=== PATIENT | male | born 1970 | race Caucasian/White ===

== ENCOUNTER 2019-10-30 14:13 | Day surgery (SDC) | payer OTHER, SELFPAY ==
--- NOTE | 2019-10-30 | PATH_ITS ---
[facility] Accession Number: [id number] . 01 Material submitted: . PART A: sigmoid colon - SIGMOID POLYP 4 MM PART B: sigmoid colon - ABNORMAL MUCOSA - SIGMOID AT 34 CM PART C: colon - ABNORMAL MUCOSA AT 27 CM PART D: colon - ABNORMAL MUCOSA 25 CM . 01 Clinical history: . SCREENING COLONOSCOPY . 02 Diagnosis: A. Sigmoid Colon Polyp 4 mm, Biopsy: Inflammatory polyp with features of mucosal prolapse. Additional levels were examined. Negative for dysplasia and malignancy. . B. Sigmoid at 34 cm, Abnormal Mucosa, Biopsy: Hyperplastic colonic mucosa with extravasated red blood cells in the lamina propria and hemosiderin-laden macrophages suggestive of prior prior injury. Negative for active, chronic, and microscopic colitis. Negative for dysplasia and malignancy. . C. Colon, Abnormal Mucosa at 27 cm, Biopsy: Hyperplastic colonic mucosa with extravasated red blood cells and hemosiderin-laden macrophages suggestive of prior injury. Negative for active, chronic and microscopic colitis. Negative for dysplasia and malignancy. . D. Abnormal Mucosa at 25 cm, Biopsy: Hyperplastic colonic mucosa. Negative for dysplasia and malignancy. Additional levels were examined. [facility] 11/04/2019 1504 Local . 02 Electronically signed: . Lor Flores MD, Pathologist NPI- [id number] . 01 Gross description: . Part A: SIGMOID POLYP 4 MM: Received in formalin are 2 fragment(s) of aguilar, soft tissue measuring 0.1 x 0.1 x 0.1 cm to 0.2 x 0.2 x 0.1 cm submitted entirely in 1 cassette(s) Part B: ABNORMAL MUCOSA - SIGMOID AT 34 CM: Received in formalin are multiple fragment(s) of aguilar, soft tissue measuring 0.1 x 0.1 x 0.1 cm to 0.3 x 0.2 x 0.2 cm submitted entirely in 1 cassette(s) Part C: ABNORMAL MUCOSA AT 27 CM: Received in formalin is 1 fragment(s) of aguilar, soft tissue measuring 0.2 x 0.1 x 0.1 cm submitted entirely in 1 cassette(s) Part D: ABNORMAL MUCOSA 25 CM: Received in formalin is 1 fragment(s) of aguilar, soft tissue measuring 0.3 x 0.2 x 0.2 cm submitted entirely in 1 cassette(s) /[facility] [place] 11/02/2019 1924 Local . 02 Pathologist provided ICD-10: Z12.11 . 02 CPT . 565965, 293531, 183833, [id number] Performed at: 01 [facility] [address] [id number] MD Miguel Angel Hess MD Phone: [phone] Performed at: 02 [facility] [address] [place], [place] [id number] MD Lor Flores MD Phone: [phone]
--- NOTE | 2019-10-30 12:22 | P.HP_ITS ---
History of Present Illness History of Present Illness Date Patient Seen: 10/30/19 Time Patient Seen: 15:00 Chief complaint: 28051 SCREENING COLONOSCOPY Narrative: Primary Care Provider: Nathaly STAFFORD History of Present Illness: 49 Years Old Male comes in today for consideration of a screening colonoscopy. There have been no lower GI symptoms suggesting disease such as change in bowel habits, bleeding, abdominal pain or anemia. There's been no family history of colon cancer or colon polyps. Overall health issues have been stable, including no major cardiac events for at least 6 weeks. 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 use as directed 2) Claritin 10 Mg Oral Tablet (Loratadine) .... Take one tablet daily, as needed for allergy symptoms. 3) Allergy [place] 24 Hour 50 Mcg/act Nasal Suspension (Fluticasone Propionate) .... use as directed per instructions Allergies (verified): No Known Drug Allergies Review of Systems: General: Denies fever, chills, sweats, loss of appetite, fatigue, weakness, ill feeling, weight change, waking-up tired, fatigued/sleepy during day, snoring, and problem getting to or staying asleep. Eyes: Denies blurring, double vision, irritation/itching, redness, discharge, vision loss, eye pain, and light intolerance. ENT: Denies earache, ear discharge, ringing ears, decreased hearing, nasal congestion, nasal discharge, postnasal drip, nosebleeds, sore throat, hoarseness, itching nose/eyes, and sneezing. CV: Denies chest discomfort, palpitations, lightheadedness, passing out, SOB with exertion, SOB lying flat, PND-sudden nocturnal shortness of breath, and ankle edema. Resp: Denies cough, wheeze, SOB at rest, sputum, coughing up blood, and painful breathing. GI: Denies nausea, vomiting, diarrhea, constipation, change in bowel habits, abdominal pain, dark black stools, blood in stools, gas/bloating, indigestion/heartburn, reflux, loss of appetite, swallowing problems, painful swallowing, and jaundice. : Denies painful urination, blood in urine, frequency, nocturia, urgency, hesitancy, incontinence, decreased stream, penis discharge, genital sores, less interested in sex, and erectile dysfunction. MS: Denies neck pain, upper back pain, lower back pain, joint pain, joint swelling, joint stiffness, muscle cramps, muscle weakness, pain radiating down leg, restless legs, and leg pain with exertion. Derm: Denies rash, itching, dryness, skin lesions, changing lesions, and non- healing sores. Neuro: Denies weakness of a limb, numbness/tingling, seizure, tremor, dizziness, transient blindness, balance problems, frequent falls, frequent headaches, severe headaches, difficulty speaking, difficulty swallowing, clumsiness, confusion, and memory loss. Psych: Denies sadness/hopelessness, feeling overwhelmed, lack of freda/pleasure, anxiety/excessive worry, excessive sleep, inadequate sleep, change in appetite, poor concentration, suicidal ideation, hallucinations, paranoia, and phobia. Endo: Denies cold intolerance, heat intolerance, excessive thirst, excessive hunger, excessive urination, and unintentional weight change. Heme: Denies abnormal bruising, bleeding problems, bleeding gums, frequent nosebleeds, and enlarged lymph nodes. Allergy: Complains of seasonal allergies and food intolerance; denies hives, allergic rash, allergy symptoms, animal intolerance, and frequent infections. Meds Home Medications and Allergies Home Medications Medication Instructions Recorded Confirmed Type No Known Home Medications 10/30/19 10/30/19 History Allergies Allergy/AdvReac Type Severity Reaction Status Date / Time No Known Drug Allergies Allergy Verified 10/30/19 14:30 Exam Narrative Exam Narrative: GENERAL: Alert and oriented, appearing stated age and in no acute distress. HEENT: Head normocephalic/atraumatic. LUNGS: Clear to ausculation bilaterally, no wheezes, rhonchi or rales. CV: Normal S1 and S2 with regular rate and rhythm, no audible murmurs, rubs or gallops. ABDOMEN: Soft, non-tender, non-distended, no organomegaly. Positive bowel sounds. EXTREMITIES: No clubbing, cyanosis, or edema. NEURO: Cranial nerves II through XII grossly intact, no focal deficits. PSYCH: Alert and oriented x 3. SKIN: No concerning lesions. Assessment & Plan Assessment & Plan narrative: 1. Screening for colon cancer Plan for colonoscopy. The nature and character of the procedure as well as anticipated results were discussed. The possibility of not completing the procedure was also discussed. Possible complications including aspiration pne umonia, bleeding, perforation and reaction to medications either for sedation or preparation and missed lesions were discussed. Questions were answered and proceeding to the colonoscopy was elected. Informed consent signed. I sincerely appreciate the referral allowing me to participate in this patient's care. Please contact me with any questions or concerns.
--- NOTE | 2019-10-30 12:24 | PM.OP.ENDO ---
Operative Date/Time/Diagnoses Date of procedure: 10/30/19 Time of procedure: 15:42 Pre-op diagnosis: 1. Screening for colon cancer Post-op diagnosis: other (1. Sigmoid polyp x1, 4 mm, removed with cold biopsy forceps, 2. Abnormal mucosa with superficial hyperemesis, sigmoid colon, targeted biopsies taken, 25-37 cm) Procedure & Clinicians Study performed: 1. Colonoscopy Same procedure as scheduled: Yes Indications: 1. Screening for colon cancer Surgeon: Maame Haney Procedure Notes SCOAP/Timeout: 15:42 Procedure in detail: ENDOSCOPIST: Maame Haney MD Sedation RN: Dana Mark RN Sedation start time: 15:47 Sedation end time: 16:42 PROCEDURE: Colonoscopy with methylene blue and cold snare polypectomy as well as targeted biopsies throughout. INDICATIONS: 1. Screening for colon cancer MEDICATION: Levsin 0.125 mg sublingual, incremental doses of Versed and fentanyl until appropriate level sedation achieved. ASA CLASS: 1 CECAL WITHDRAWAL TIME: 38 minutes COMPLICATIONS: None. EXTENT OF PROCEDURE: Cecum. QUALITY OF PREP: Good with portions of liquid stool. PROCEDURE: Prior to insertion of the colonoscope, a digital rectal examination was accomplished with circumferential palpation of the distal rectal mucosa without significant findings being noted. The high-definition colonoscope was passed into the rectum in the usual fashion and advanced over to the cecum without difficulty. The ileocecal valve, appendiceal stoma, and medial wall all could be inspected and no abnormalities were seen. ASCENDING COLON: As the colonoscope was withdrawn, care was taken to expose and inspect the haustral folds and no abnormalities were seen. HEPATIC FLEXURE: Normal no polyps, diverticula or other abnormalities. TRANSVERSE COLON: Normal no polyps, diverticula or other abnormalities. DESCENDING/SIGMOID COLON: Minor scattered diverticuli, noninflamed. Sigmoid polyp x1, 4 mm, lifted with methylene blue and removed with cold biopsy forceps. Abnormal mucosa, patchy and polypoid with superficial hyperemesis from 34-25 cm. Tissue was injected with methylene blue to better visualize margins, nothing defined, targeted biopsies taken at each site. Possible inflamed mucosa, versus large 1-2 cm superficial spreading lesions. RECTUM: Normal. J maneuver was produced. There was no significant perianal disease. The J maneuver was broken. The remainder of the rectum was inspected and there was no external hemorrhoid disease. The scope was withdrawn. IMPRESSION: 1. Sigmoid polyp x1, 4 mm, lifted with methylene blue and removed with cold biopsy forceps. 2. Abnormal mucosa, patchy and polypoid with superficial hyperemesis from 34-25 cm, injected with methylene blue and targeted biopsies taken 80 each site. 3. Diverticulosis, left-sided, mild PLAN: 1. Follow-up in clinic status post pathology results. The possibility of a missed lesion including a malignancy has been discussed with the patient previously. Potential alarm symptoms have been discussed and should be reported immediately. Scope withdrawal time: 38 Sedation minutes: 55 Findings: polyp and other findings Specimen(s): other Complications: none Impression: As above. Post-procedure Recommendations: Will call with biopsy results Follow up: weeks (2) Disposition: PACU
[2019-10-30 14:36] VITALS: BP 125/85; PULSE 60; RESP 16; TEMP 36.2; O2SAT 97; BMI 30.7
[2019-10-30] MEDS: SODIUM CHLORIDE 0.9% 1,000 ML 200 ML IV (14:45)
[2019-10-30] MEDS: HYOSCYAMINE 0.125 MG TABLET PO (14:48)
[2019-10-30] MEDS: MIDAZOLAM 5 MG/5 ML VIAL IV (15:48)
[2019-10-30] MEDS: fentaNYL 250 MCG/5 ML INJ IV (15:49)
[2019-10-30] MEDS: METHYLENE BLUE 50 MG/10 ML VIAL INJ (16:45)
[2019-10-30 16:51] VITALS: BP 118/78; PULSE 66; RESP 16; TEMP 36.9; O2SAT 95
[2019-10-30 16:55] VITALS: BP 122/88; PULSE 69; RESP 18; O2SAT 94
[2019-10-30 17:01] VITALS: BP 119/84; PULSE 65; RESP 14; TEMP 36.7; O2SAT 94
== END 2019-10-30 17:26 | disposition home or self-care (01) ==
PROVIDERS: PCP Internal Medicine; Visit Provider Student in an Organized Health Care Education/Training Program
PROC: 0DJD8ZZ Inspection of Lower Intestinal Tract, Via Natural or Artificial Opening Endoscopic (ICD-10-PCS; CPT 45378; principal; 2019-10-30 16:00)
DX: Z12.11 Encounter for screening for malignant neoplasm of colon (principal); K57.30 Diverticulosis of large intestine without perforation or abscess without bleeding; K51.40 Inflammatory polyps of colon without complications
CPT/HCPCS: 45381; 45380; J2250; J3010; Q9968

== ENCOUNTER → 2021-02-02 15:10 | Outpatient (CLI) | payer OTHER, SELFPAY ==
[2021-02-02] MEDS: COVID-19 VACC, Ad26(JANSSEN)/PF 0.5 ML IM (15:23)
== END ==
PROVIDERS: PCP Internal Medicine; Visit Provider Internal Medicine
DX: Z23 Encounter for immunization (principal)
CPT/HCPCS: 0031A; 91303

== ENCOUNTER → 2022-08-29 12:29 | Outpatient (CLI) | payer BC, SELFPAY ==
--- NOTE | 2022-08-29 | DI.RAD.S_ITS ---
PROCEDURE: XR CERVICAL SPINE 2V OR 3V INDICATIONS: Polyneuropathy, unspecified TECHNIQUE: 3 view(s) of the cervical spine were acquired. COMPARISON: None. FINDINGS: Bones: No fractures or dislocations to the C7 level. The lateral masses of C1 appear intact on the odontoid view. No suspicious bony lesions. Degenerative disc disease, moderate at C5-C6 and C6-C7, mild at C4-C5. Mild bilateral facet arthropathy in cervical spine, most pronounced at C4-C5 and C5-C6. Soft tissues: No prevertebral soft tissue swelling. IMPRESSION: 1. No cervical spine fractures. 2. Degenerative changes in cervical spine as described. Dictated by: Seble Lara M.D. on 08/29/2022 at 17:13 Approved by: Seble Lara M.D. on 08/29/2022 at 17:14
--- NOTE | 2022-08-29 | DI.RAD.S_ITS ---
PROCEDURE: XR LUMBAR SPINE 2-3V INDICATIONS: Polyneuropathy, unspecified TECHNIQUE: 3 views of the lumbar spine were acquired. COMPARISON: None. FINDINGS: Bones: 5 [id number] vertebrae are present. There is normal bony alignment. No vertebral body compression fractures. No suspicious bony lesions. Multilevel disc space narrowing degenerative endplate changes are seen. Moderate facet hypertrophy is seen throughout the lumbar spine. Soft tissues: Overlying bowel gas pattern is normal. No suspicious soft tissue calcifications. IMPRESSION: Moderate multilevel spondylosis. No acute osseous abnormality. If the symptoms persist, consider cross sectional imaging such as MRI or CT for further assessment. Approved by: Kulwant Spring M.D. on 08/29/2022 at 16:18
== END ==
PROVIDERS: PCP Internal Medicine; Referring Provider Internal Medicine; Visit Provider Internal Medicine
DX: M47.816 Spondylosis without myelopathy or radiculopathy, lumbar region (principal); M47.812 Spondylosis without myelopathy or radiculopathy, cervical region; M50.321 Other cervical disc degeneration at C4-C5 level; M25.511 Pain in right shoulder; M25.512 Pain in left shoulder; G62.9 Polyneuropathy, unspecified; R20.2 Paresthesia of skin
CPT/HCPCS: 72040; 72100

== ENCOUNTER → 2022-10-31 08:50 | Outpatient (CLI) | payer BC, SELFPAY ==
--- NOTE | 2022-10-31 | DI.MRI.S_ITS ---
PROCEDURE: MR LUMBAR SPINE WO CON INDICATIONS: Spondylosis without myelopathy or radiculopathy TECHNIQUE: Noncontrast sagittal T1 spin echo and T2 fast echo, sagittal STIR, and T2 fast spin echo through the lumbar spine. In cases with scoliosis, additional coronal T2 fast spin echo may be performed. COMPARISON: None. FINDINGS: Image quality: Excellent. Alignment and Curvature: There is normal bony alignment. Bone Marrow: Marrow is of normal overall signal. No acute vertebral body compression fractures. Spinal Cord: Conus medullaris terminates at the L1 level. Visualized cord demonstrates normal signal and size. Paraspinous Soft Tissues: No paravertebral masses. T12-L1: Moderate disc desiccation and height loss. Broad-based disc bulge. Moderate facet ligamentum flavum hypertrophy. No canal stenosis. Mild bilateral neural foraminal stenosis. L1-L2: Moderate disc desiccation and height loss. Broad-based disc bulge. Mild facet ligamentum flavum hypertrophy. No canal stenosis. Mild right and moderate left neural foraminal stenosis. L2-L3: Moderate disc desiccation and height loss. Broad-based disc bulge. Moderate facet ligamentum flavum hypertrophy. Mild canal stenosis. Mild right and moderate left foraminal stenosis. L3-L4: Moderate disc desiccation and height loss. Broad-based disc bulge. Moderate facet ligamentum flavum hypertrophy. Mild canal stenosis. Mild bilateral neural foraminal stenosis. L4-L5: Mild disc desiccation and height loss. Broad-based disc bulge. Severe facet ligamentum flavum hypertrophy. Moderate canal stenosis. Moderate bilateral foraminal stenosis. There is a small posterior focal high-intensity zone. L5-S1: Moderate disc desiccation and height loss. Broad-based disc bulge. Mild facet ligamentum flavum hypertrophy. No canal stenosis. Severe right and moderate left foraminal narrowing. There is a small posterior focal high-intensity zone. IMPRESSION: 1. Moderate disc desiccation and height loss throughout the lumbar spine. 2. 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 3. Moderate left foraminal stenosis at L1-2 , L2-3, and L5-S1. Moderate bilateral foraminal stenosis at L4-5. Severe right foraminal stenosis at L5-S1. 3. Mild canal stenosis at L2-3 and L3-4 and moderate canal stenosis at L4-5. Dictated by: Domi Hatch M.D. on 10/31/2022 at 16:14 Approved by: Domi Hatch M.D. on 10/31/2022 at 16:22
== END ==
PROVIDERS: Family Provider Internal Medicine; PCP Internal Medicine; Referring Provider Internal Medicine; Visit Provider Internal Medicine
DX: M51.36 Other intervertebral disc degeneration, lumbar region; M51.37 Other intervertebral disc degeneration, lumbosacral region; M47.816 Spondylosis without myelopathy or radiculopathy, lumbar region; M48.061 Spinal stenosis, lumbar region without neurogenic claudication; M48.07 Spinal stenosis, lumbosacral region
CPT/HCPCS: 72148

== ENCOUNTER → 2022-12-27 09:26 | Outpatient (CLI) | payer BC, SELFPAY ==
--- NOTE | 2022-12-27 | DI.RAD.S_ITS ---
PROCEDURE: XR TOE LT MIN 2V INDICATIONS: Crushing injury of left great toe, initial encounter TECHNIQUE: 3 views of the left great toe(s) acquired. COMPARISON: None. FINDINGS: Bones: No fractures or dislocations. No suspicious bony lesions. Soft tissues: No suspicious soft tissue densities. IMPRESSION: No acute radiographic findings. If pain persists, followup imaging in 5-7 days is recommended to exclude occult fracture. Dictated by: Domi Hatch M.D. on 12/27/2022 at 12:22 Approved by: Domi Hatch M.D. on 12/27/2022 at 12:23
== END ==
PROVIDERS: Family Provider Internal Medicine; PCP Internal Medicine; Referring Provider Internal Medicine; Visit Provider Internal Medicine
DX: S97.112A Crushing injury of left great toe, initial encounter (principal); X58.XXXA Exposure to other specified factors, initial encounter
CPT/HCPCS: 73660

== ENCOUNTER 2023-03-11 09:30 | Outpatient (RCR) | payer BC, SELFPAY ==
--- NOTE | 2022-09-10 19:35 | PT.OIE ---
Current Diagnoses Polyneuropathy, unspecified (09/10/22) Radiculopathy, site unspecified (09/10/22) Muscle weakness (generalized) (09/10/22) Abnormal posture (09/10/22) Other reduced mobility (09/10/22) Visit Care Team Role Provider Type RIVERA Reeves Attending Provider Advanced [employer] Field Service Technician Family Provider Primary Care Provider Referring Provider Specialty: Family Practice Address: [address] [place] [address], [facility] [place], [facility] Email: [email or web address] Physical Therapy Initial Evaluation PT-OP-A Visit Information Start: 09/06/22 18:45 Freq: Status: Active Protocol: Document 09/10/22 13:03 LRN (Rec: 09/10/22 19:20 LRN [id number]) Out-Patient Physical Therapy Visit Information Visit Information Visit Type Initial Evaluation Visit Start Time 13:03 Visit Stop Time 13:57 Total Visit Minutes 54 Visit Number Evaluation Information Evaluation Date 09/10/22 Precautions Precautions Hernia-R front mesh. PT-OP-B Current Condition Start: 09/06/22 18:45 Freq: Status: Active Protocol: Document 09/10/22 13:03 LRN (Rec: 09/10/22 19:20 LRN [id number]) Current Condition History of Current Condition Onset Date Few months ago Current Complaints Sonny foot lyubov feeling and feeling of socks on feet. History of Current Condition Few months ago went for a walk wearing his orthotics and hurt his L heel. He took it easy and 3 weeks later he started to get neuropathy, a feeling of sandiness and sock on L foot. Now the neuropathy has started in his R foot. Denies foot pain. States he stands a lot with a wide spread stance. States he feels hot/cold, tickling, feels like bunched sock in toes and the tingling as if feet have fallen asleep, comes and goes with standing. States he has weakness in his legs. Does Airdyne bike and yoga daily. 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 Future Testing and Treatments Planned 09/24/22: [facility]t (Dr Emilia Hinton in ) 09/26/22: Accupuncture appt. Developmental History Developmental History Occasionally has had achilles tendonitis of L heel (pain on heel and outside of heel) and he would ice it. 10 yrs ago he was carrying his daughter, and she tried to throw herself onto the ground, causing him to quickly bend forward to keep from dropping her, since then he has had R thigh sensations (wet) and if he stands for excessive time his R thigh kang. When he worked, 16-18 hr days he had achy feet. Treatment Goals Patient/Caregiver Goals Pt goal is to not have pain, normal again. has 11 and 9 yo and wants to travel. No sensation, pain in heel - with way to take care. No pain with walking. Prior Functional Status Baseline Function- ADL's Independent Baseline Function- Mobility Independent Baseline Function- Work/School Building his deck, odd standing. Baseline Function- Recreation/Hobbies Worked in garden. Current Functional Impairments (Reported) Functional Limitations- ADL's Difficulty hauling his trash can up his driveway because the feet feel like he has been working all day. Functional Limitations- Mobility/Gait Weakness in legs; therefore not confident in gait. Clumsiness. Functional Limitations- Work/School Self employed. Functional Limitations- Recreation/ Does [employer]irdyne bike and yoga Hobbies daily. Personal Factors Other Personal Factors That May Effect Pt reports being very active Therapy/Recovery and is wanting to travel with his spouse and children ages 12 & 10. Back injury 10 yrs ago. Flattened arches requiring orthotics in shoes. PT-OP-C Subjective Start: 09/06/22 18:45 Freq: Status: Active Protocol: Document 09/10/22 13:03 LRN (Rec: 09/10/22 19:20 LRN [id number]) Patient Questionnaires Foot & Ankle Ability Measure- ADL and Sports FAAM-ADL Score 68 FAAM-ADL Impairment 1 to 19% Impaired (Score 67-83 ) FAAM-Sport Score 20 FAAM-Sport Impairment 20 to 39% Impaired (Score 19- 24) Lower Extremity Functional Scale LEFS Score 66 LEFS Impairment 1 to 19% Impaired (Score 63-79 ) PT-OP-G Mobility & Gait Start: 09/06/22 18:45 Freq: Status: Active Protocol: Document 09/10/22 13:03 LRN (Rec: 09/10/22 19:20 LRN [id number]) OP Gait Assessment Gait Gait Assistance Required: Independent Able to Maintain Weight Bearing Status Yes During Gait Assistive Devices Assistive Device None Gait Deviations General Gait Pattern Flexed Trunk,Wide Based Gait Factors Limiting Gait Function Factors Limiting Gait Function Decreased Sensation,Decreased Strength,Pain Comments Gait Comments Pain in heels with heel strike . PT-OP-H Neuro Start: 09/06/22 18:45 Freq: Status: Active Protocol: Document 09/10/22 13:03 LRN (Rec: 09/10/22 19:20 LRN [id number]) Sensation Evaluation Gross Sensation Gross Sensation WNL,Left LE Impaired,Right LE Impaired Sensation Description Tingling,Pins & [place], Heaviness Comments Summary Comments Pt is able to feel light touch /firm pressure difference, and reports having normal sensation to hot/cold. Deep Tendon Reflex & Clonus Assessment Deep Tendon Reflex Bilateral Achilles Deep Tendon Reflex 2+ Normal PT-OP-J Posture/Palpation/Skin Start: 09/06/22 18:45 Freq: Status: Active Protocol: Document 09/10/22 13:03 LRN (Rec: 09/10/22 19:20 LRN [id number]) Posture Evaluation Position Standing Head/C-Spine Posture Forward Head L-Spine Posture Increased Lordosis Pelvis Posture Anteriorly Tilted Weight Distribution Balanced Knee Posture (L) Genu Valgus,(R) Genu Valgus Ankle/Foot Posture (L) Pronated,(R) Pronated,(L) Calcaneal Eversion,(R) Calcaneal Eversion Foot Arch (R) Low Arch,(L) No Arch Comments Posture Comments Ankle IV L>R , R valgus >L, R varus>L, FB 18 deg's at hip. Protruding abdomen, Sacrum in L rotates, ?R iliac high. Palpation Assessment Location Low back Palpation Location Bilateral SIJ's Palpation Findings Tenderness Palpation Details Sacrum in L rotation. PT-OP-K Range of Motion Start: 09/06/22 18:45 Freq: Status: Active Protocol: Document 09/10/22 13:03 LRN (Rec: 09/10/22 19:20 [facility] [id number]) Hip Goniometric Range of Motion Hip Right Passive Testing Position Supine Straight Leg Raise 105 Internal Rotation 15 External Rotation 70 Left Passive Testing Position Supine Straight Leg Raise 105 Internal Rotation 20 External Rotation 65 PT-OP-Q Treatments Start: 09/06/22 18:45 Freq: Status: Active Protocol: Document 09/10/22 13:03 LRN (Rec: 09/10/22 19:20 LRN [id number]) Manual Therapy Treatment Manual Traction Lumbar Details Manual Lumbar traction Body Position Hooklying Reps/Duration 2' Comments Decrease in lyubov feeling of feet a little Self-Care/Home Management Treatment Education Patient Education Home Exercise Program,Pain Management Other Education Discussed results of evaluation, goals, and plan of care (POC). Pt agreeable to goals and POC. Activities Self-Care/Home Management Activities Discussed use of inversion table 2-3 times per week, for 30 secs at a time at angle of 60 deg's. Pt educated in self L/S traction in supine. PT-OP-T Assessment and Plan Start: 09/06/22 18:45 Freq: Status: Active Protocol: Document 09/10/22 13:03 LRN (Rec: 09/10/22 19:20 LRN [id number]) Physical Therapy Assessment Rehab Potential Rehabilitation Potential Good Evaluation Complexity Number of Personal Factors/Comorbidities 3 or More Number of Body Systems Impaired 4 or More Clinical Presentation at Evaluation Evolving Impairments Impairments Activity Tolerance,Gait,Pain, Posture,Sensation Goals Three Impairment Heel pain with gait rated 2-3/ 10. Short Term Goal (STG) Improve hip rotational mobility (IR>ER) with lessening heel pain with gait. STG Duration 10/26/22 Traveling Auditor Goal (LTG) Pelvic symmetry and stability ex's with no heel pain when walking. LTG Duration 12/09/22 Two Impairment Neuropathy of feet Impairment Sensation: Lyubov and wearing a wrinkled sock feeling worse in ball of feet and 1-3 digits of the toes, plantar surface. Short Term Goal (STG) Pt will be educated in proper body mechanics. STG Duration 10/26/22 Traveling Auditor Goal (LTG) Normalize sensation in the feet bilaterally. LTG Duration 12/09/22 One Impairment Lacks appropriate self care HEP. Short Term Goal (STG) Pt will be educated in proper posturing and use of home modalities for pain/sensation management. STG Duration 10/26/22 Traveling Auditor Goal (LTG) Pt goal is to not have pain, normal again. has 11 and 9 yo and wants to travel. No sensation, pain in heel - with way to take care. LTG Duration 12/09/22 Assessment Summary Assessment Pt presents with mechanical deviations of the lower lumbar spine and sacrum (in L rotation). He has increased tension in the gluteals and very limited hip IR mobility; therefore he may be having neural symptoms of the feet from Piriformis tightness in addition to mechanical dysfunction. The did have slight reduction in the sensation of his feet with manual lumbar traction. Symptoms of changes in feet sensation are more consistent with possible spinal stenosis . Further imaging may be needed if progress is not made with physical therapy. The pt will benefit from skilled physical therapy for pt education in proper posturing and gait training, therapeutic ex, STM, JMT of SIJ's & lumbar spine, and modalities. Physical Therapy Plan Frequency and Duration Frequency of Treatment 2x/Week Plan of Care Start Date 09/10/22 Plan of Care End Date 12/09/22 Therapeutic Interventions Therapeutic Interventions Gait Training,Home Exercise Program,Manual Therapy, Neuromuscular Re-education, Patient/Caregiver Education, Self-Care/Home Management,Soft Tissue Mobilization,Taping, Therapeutic Activities, Therapeutic Exercises Modalities Cold Pack/Ice Massage,Electric Stimulation,Hot Packs, Ultrasound Next Visit Focus/Plan Next Note Type Treatment Note Next Visit Plan Check feet sensation to sharp/ dull. ROM of ankle, MMT hip/ core. Check for pelvic obliquity (L SIJ dysfunction). Assess hip strength and endurance as limited by neuropathy of the feet. Education: Proper posture sit , stand, at rest (supine/ sidelie) Manual: STM of back and L hip >R hip. Try Mechanical traction if + response to manual lumbar traction. Ex's/HEP: Piriformis stretch and hip ER stretch, pelvic/ core stabilization.
--- NOTE | 2022-09-10 19:35 | PT.OPPOC ---
Physical, Occupational & Speech Therapy At [facility] Current Diagnoses Polyneuropathy, unspecified (09/10/22) Radiculopathy, site unspecified (09/10/22) Muscle weakness (generalized) (09/10/22) Abnormal posture (09/10/22) Other reduced mobility (09/10/22) Visit Care Team Role Provider Type RIVERA Reeves Attending Provider Advanced Salesperson Shoes Family Provider Primary Care Provider Referring Provider Specialty: Family Practice Address: [address] [place] [address], [id number] Email: Plan Of Care PT-OP-T Assessment and Plan Start: 09/06/22 18:45 Freq: Status: Active Protocol: Document 09/10/22 13:03 LRN (Rec: 09/10/22 19:20 LRN [id number]) Physical Therapy Assessment Rehab Potential Rehabilitation Potential Good Evaluation Complexity Number of Personal Factors/Comorbidities 3 or More Number of Body Systems Impaired 4 or More Clinical Presentation at Evaluation Evolving Impairments Impairments Activity Tolerance,Gait,Pain, Posture,Sensation Goals Three Impairment Heel pain with gait rated 2-3/ 10. Short Term Goal (STG) Improve hip rotational mobility (IR>ER) with lessening heel pain with gait. STG Duration 10/26/22 Order Expediter Goal (LTG) Pelvic symmetry and stability ex's with no heel pain when walking. LTG Duration 12/09/22 Two Impairment Neuropathy of feet Impairment Sensation: Stephanie and wearing a wrinkled sock feeling worse in ball of feet and 1-3 digits of the toes, plantar surface. Short Term Goal (STG) Pt will be educated in proper body mechanics. STG Duration 10/26/22 Usp Goal (LTG) Normalize sensation in the feet bilaterally. LTG Duration 12/09/22 One Impairment Lacks appropriate self care HEP. Short Term Goal (STG) Pt will be educated in proper posturing and use of home modalities for pain/sensation management. STG Duration 10/26/22 Order Expediter Goal (LTG) Pt goal is to not have pain, normal again. has 11 and 9 yo and wants to travel. No sensation, pain in heel - with way to take care. LTG Duration 12/09/22 Assessment Summary Assessment Pt presents with mechanical deviations of the lower lumbar spine and sacrum (in L rotation). He has increased tension in the gluteals and very limited hip IR mobility; therefore he may be having neural symptoms of the feet from Piriformis tightness in addition to mechanical dysfunction. The did have slight reduction in the sensation of his feet with manual lumbar traction. Symptoms of changes in feet sensation are more consistent with possible spinal stenosis . Further imaging may be needed if progress is not made with physical therapy. The pt will benefit from skilled physical therapy for pt education in proper posturing and gait training, therapeutic ex, STM, JMT of SIJ's & lumbar spine, and modalities. Physical Therapy Plan Frequency and Duration Frequency of Treatment 2x/Week Plan of Care Start Date 09/10/22 Plan of Care End Date 12/09/22 Therapeutic Interventions Therapeutic Interventions Gait Training,Home Exercise Program,Manual Therapy, Neuromuscular Re-education, Patient/Caregiver Education, Self-Care/Home Management,Soft Tissue Mobilization,Taping, Therapeutic Activities, Therapeutic Exercises Modalities Cold Pack/Ice Massage,Electric Stimulation,Hot Packs, Ultrasound Next Visit Focus/Plan Next Note Type Treatment Note Next Visit Plan Check feet sensation to sharp/ dull. ROM of ankle, MMT hip/ core. Check for pelvic obliquity (L SIJ dysfunction). Assess hip strength and endurance as limited by neuropathy of the feet. Education: Proper posture sit , stand, at rest (supine/ sidelie) Manual: STM of back and L hip >R hip. Try Mechanical traction if + response to manual lumbar traction. Ex's/HEP: Piriformis stretch and hip ER stretch, pelvic/ core stabilization. Plan of Care Dates Plan of Care Start Date 09/10/22 Plan of Care End Date 12/09/22 Electronically Signed by: Domi Bush, PT 09/10/221934 If you are in agreement with this Plan of Care, please return a signed and dated copy. I have reviewed this Plan of Care and certify that the skilled therapy services above are required to meet the patient?s needs. Physician Signature Date Printed Name and Credentials Clinical Instructor Signature Printed Name and Credentials
--- NOTE | 2022-09-10 19:37 | PT.OIE ---
Current Diagnoses Polyneuropathy, unspecified (09/10/22) Radiculopathy, site unspecified (09/10/22) Muscle weakness (generalized) (09/10/22) Abnormal posture (09/10/22) Other reduced mobility (09/10/22) Visit Care Team Role Provider Type RIVERA Reeves Attending Provider Advanced Lozenge Dough Mixer Family Provider Primary Care Provider Referring Provider Specialty: Family Practice Address: [address] [place] [address], [facility] [place], [facility] Email: [email or web address] Physical Therapy Initial Evaluation PT-OP-A Visit Information Start: 09/06/22 18:45 Freq: Status: Active Protocol: Document 09/10/22 13:03 LRN (Rec: 09/10/22 19:20 LRN [id number]) Out-Patient Physical Therapy Visit Information Visit Information Visit Type Initial Evaluation Visit Start Time 13:03 Visit Stop Time 13:57 Total Visit Minutes 54 Visit Number Evaluation Information Evaluation Date 09/10/22 Precautions Precautions Hernia-R front mesh. PT-OP-B Current Condition Start: 09/06/22 18:45 Freq: Status: Active Protocol: Document 09/10/22 13:03 LRN (Rec: 09/10/22 19:20 LRN [id number]) Current Condition History of Current Condition Onset Date Few months ago Current Complaints Sonny foot lyubov feeling and feeling of socks on feet. History of Current Condition Few months ago went for a walk wearing his orthotics and hurt his L heel. He took it easy and 3 weeks later he started to get neuropathy, a feeling of sandiness and sock on L foot. Now the neuropathy has started in his R foot. Denies foot pain. States he stands a lot with a wide spread stance. States he feels hot/cold, tickling, feels like bunched sock in toes and the tingling as if feet have fallen asleep, comes and goes with standing. States he has weakness in his legs. Does Airdyne bike and yoga daily. 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 Future Testing and Treatments Planned 09/24/22: Medical Anthropology Director appt (Dr Emilia Hinton in ) 09/26/22: Accupuncture appt. Developmental History Developmental History Occasionally has had achilles tendonitis of L heel (pain on heel and outside of heel) and he would ice it. 10 yrs ago he was carrying his daughter, and she tried to throw herself onto the ground, causing him to quickly bend forward to keep from dropping her, since then he has had R thigh sensations (wet) and if he stands for excessive time his R thigh kang. When he worked, 16-18 hr days he had achy feet. Treatment Goals Patient/Caregiver Goals Pt goal is to not have pain, normal again. has 12 and 9 yo and wants to travel. No sensation, pain in heel - with way to take care. No pain with walking. Prior Functional Status Baseline Function- ADL's Independent Baseline Function- Mobility Independent Baseline Function- Work/School Building his deck, odd standing. Baseline Function- Recreation/Hobbies Worked in garden. Current Functional Impairments (Reported) Functional Limitations- ADL's Difficulty hauling his trash can up his driveway because the feet feel like he has been working all day. Functional Limitations- Mobility/Gait Weakness in legs; therefore not confident in gait. Clumsiness. Functional Limitations- Work/School Self employed. Functional Limitations- Recreation/ Does Airdyne bike and yoga Hobbies daily. Personal Factors Other Personal Factors That May Effect Pt reports being very active Therapy/Recovery and is wanting to travel with his spouse and children ages 12 & 10. Back injury 10 yrs ago. Flattened arches requiring orthotics in shoes. PT-OP-C Subjective Start: 09/06/22 18:45 Freq: Status: Active Protocol: Document 09/10/22 13:03 LRN (Rec: 09/10/22 19:20 LRN [id number]) Patient Questionnaires Foot & Ankle Ability Measure- ADL and Sports FAAM-ADL Score 68 FAAM-ADL Impairment 1 to 19% Impaired (Score 67-83 ) FAAM-Sport Score 20 FAAM-Sport Impairment 20 to 39% Impaired (Score 19- 24) Lower Extremity Functional Scale LEFS Score 66 LEFS Impairment 1 to 19% Impaired (Score 63-79 ) PT-OP-G Mobility & Gait Start: 09/06/22 18:45 Freq: Status: Active Protocol: Document 09/10/22 13:03 LRN (Rec: 09/10/22 19:20 LRN [id number]) OP Gait Assessment Gait Gait Assistance Required: Independent Able to Maintain Weight Bearing Status Yes During Gait Assistive Devices Assistive Device None Gait Deviations General Gait Pattern Flexed Trunk,Wide Based Gait Factors Limiting Gait Function Factors Limiting Gait Function Decreased Sensation,Decreased Strength,Pain Comments Gait Comments Pain in heels with heel strike . PT-OP-H Neuro Start: 09/06/22 18:45 Freq: Status: Active Protocol: Document 09/10/22 13:03 LRN (Rec: 09/10/22 19:20 LRN [id number]) Sensation Evaluation Gross Sensation Gross Sensation WNL,Left LE Impaired,Right LE Impaired Sensation Description Tingling,Pins & [place], Heaviness Comments Summary Comments Pt is able to feel light touch /firm pressure difference, and reports having normal sensation to hot/cold. Deep Tendon Reflex & Clonus Assessment Deep Tendon Reflex Bilateral Achilles Deep Tendon Reflex 2+ Normal PT-OP-J Posture/Palpation/Skin Start: 09/06/22 18:45 Freq: Status: Active Protocol: Document 09/10/22 13:03 LRN (Rec: 09/10/22 19:20 LRN [id number]) Posture Evaluation Position Standing Head/C-Spine Posture Forward Head L-Spine Posture Increased Lordosis Pelvis Posture Anteriorly Tilted Weight Distribution Balanced Knee Posture (L) Genu Valgus,(R) Genu Valgus Ankle/Foot Posture (L) Pronated,(R) Pronated,(L) Calcaneal Eversion,(R) Calcaneal Eversion Foot Arch (R) Low Arch,(L) No Arch Comments Posture Comments Ankle IV L>R , R valgus >L, R varus>L, FB 18 deg's at hip. Protruding abdomen, Sacrum in L rotates, ?R iliac high. Palpation Assessment Location Low back Palpation Location Bilateral SIJ's Palpation Findings Tenderness Palpation Details Sacrum in L rotation. PT-OP-K Range of Motion Start: 09/06/22 18:45 Freq: Status: Active Protocol: Document 09/10/22 13:03 LRN (Rec: 09/10/22 19:20 [facility] [id number]) Hip Goniometric Range of Motion Hip Right Passive Testing Position Supine Straight Leg Raise 105 Internal Rotation 15 External Rotation 70 Left Passive Testing Position Supine Straight Leg Raise 105 Internal Rotation 20 External Rotation 65 PT-OP-Q Treatments Start: 09/06/22 18:45 Freq: Status: Active Protocol: Document 09/10/22 13:03 LRN (Rec: 09/10/22 19:20 LRN [id number]) Manual Therapy Treatment Manual Traction Lumbar Details Manual Lumbar traction Body Position Hooklying Reps/Duration 2' Comments Decrease in lyubov feeling of feet a little Self-Care/Home Management Treatment Education Patient Education Home Exercise Program,Pain Management Other Education Discussed results of evaluation, goals, and plan of care (POC). Pt agreeable to goals and POC. Activities Self-Care/Home Management Activities Discussed use of inversion table 2-3 times per week, for 30 secs at a time at angle of 60 deg's. Pt educated in self L/S traction in supine. PT-OP-T Assessment and Plan Start: 09/06/22 18:45 Freq: Status: Active Protocol: Document 09/10/22 13:03 LRN (Rec: 09/10/22 19:20 LRN [id number]) Physical Therapy Assessment Rehab Potential Rehabilitation Potential Good Evaluation Complexity Number of Personal Factors/Comorbidities 3 or More Number of Body Systems Impaired 4 or More Clinical Presentation at Evaluation Evolving Impairments Impairments Activity Tolerance,Gait,Pain, Posture,Sensation Goals Three Impairment Heel pain with gait rated 2-3/ 10. Short Term Goal (STG) Improve hip rotational mobility (IR>ER) with lessening heel pain with gait. STG Duration 10/26/22 Newspaper Editor Goal (LTG) Pelvic symmetry and stability ex's with no heel pain when walking. LTG Duration 12/09/22 Two Impairment Neuropathy of feet Impairment Sensation: Lyubov and wearing a wrinkled sock feeling worse in ball of feet and 1-3 digits of the toes, plantar surface. Short Term Goal (STG) Pt will be educated in proper body mechanics. STG Duration 10/26/22 Newspaper Editor Goal (LTG) Normalize sensation in the feet bilaterally. LTG Duration 12/09/22 One Impairment Lacks appropriate self care HEP. Short Term Goal (STG) Pt will be educated in proper posturing and use of home modalities for pain/sensation management. STG Duration 10/26/22 Newspaper Editor Goal (LTG) Pt goal is to not have pain, normal again. has 11 and 9 yo and wants to travel. No sensation, pain in heel - with way to take care. LTG Duration 12/09/22 Assessment Summary Assessment Pt presents with mechanical deviations of the lower lumbar spine and sacrum (in L rotation). He has increased tension in the gluteals and very limited hip IR mobility; therefore he may be having neural symptoms of the feet from Piriformis tightness in addition to mechanical dysfunction. The did have slight reduction in the sensation of his feet with manual lumbar traction. Symptoms of changes in feet sensation are more consistent with possible spinal stenosis . Further imaging may be needed if progress is not made with physical therapy. The pt will benefit from skilled physical therapy for pt education in proper posturing and gait training, therapeutic ex, STM, JMT of SIJ's & lumbar spine, and modalities. Physical Therapy Plan Frequency and Duration Frequency of Treatment 2x/Week Plan of Care Start Date 09/10/22 Plan of Care End Date 12/09/22 Therapeutic Interventions Therapeutic Interventions Gait Training,Home Exercise Program,Manual Therapy, Neuromuscular Re-education, Patient/Caregiver Education, Self-Care/Home Management,Soft Tissue Mobilization,Taping, Therapeutic Activities, Therapeutic Exercises Modalities Cold Pack/Ice Massage,Electric Stimulation,Hot Packs, Ultrasound Other Referrals/Consults Referrals/Consults Recommended Recommend more recent imaging of the lumbar spine to rule out lumbar involvement. Next Visit Focus/Plan Next Note Type Treatment Note Next Visit Plan Check feet sensation to sharp/ dull. ROM of ankle, MMT hip/ core. Check for pelvic obliquity (L SIJ dysfunction). Assess hip strength and endurance as limited by neuropathy of the feet. Education: Proper posture sit , stand, at rest (supine/ sidelie) Manual: STM of back and L hip >R hip. Try Mechanical traction if + response to manual lumbar traction. Ex's/HEP: Piriformis stretch and hip ER stretch, pelvic/ core stabilization.
--- NOTE | 2022-09-10 19:37 | PT.OPPOC ---
Physical, Occupational & Speech Therapy At [facility] Current Diagnoses Polyneuropathy, unspecified (09/10/22) Radiculopathy, site unspecified (09/10/22) Muscle weakness (generalized) (09/10/22) Abnormal posture (09/10/22) Other reduced mobility (09/10/22) Visit Care Team Role Provider Type RIVERA Reeves Attending Provider Advanced Tubing Oiler Family Provider Primary Care Provider Referring Provider Specialty: Family Practice Address: [address] [place] [address], [id number] Email: Plan Of Care PT-OP-T Assessment and Plan Start: 09/06/22 18:45 Freq: Status: Active Protocol: Document 09/10/22 13:03 LRN (Rec: 09/10/22 19:20 LRN [id number]) Physical Therapy Assessment Rehab Potential Rehabilitation Potential Good Evaluation Complexity Number of Personal Factors/Comorbidities 3 or More Number of Body Systems Impaired 4 or More Clinical Presentation at Evaluation Evolving Impairments Impairments Activity Tolerance,Gait,Pain, Posture,Sensation Goals Three Impairment Heel pain with gait rated 2-3/ 10. Short Term Goal (STG) Improve hip rotational mobility (IR>ER) with lessening heel pain with gait. STG Duration 10/26/22 Geospatial Systems Integrator Goal (LTG) Pelvic symmetry and stability ex's with no heel pain when walking. LTG Duration 12/09/22 Two Impairment Neuropathy of feet Impairment Sensation: Stephanie and wearing a wrinkled sock feeling worse in ball of feet and 1-3 digits of the toes, plantar surface. Short Term Goal (STG) Pt will be educated in proper body mechanics. STG Duration 10/26/22 Penitentiary Goal (LTG) Normalize sensation in the feet bilaterally. LTG Duration 12/09/22 One Impairment Lacks appropriate self care HEP. Short Term Goal (STG) Pt will be educated in proper posturing and use of home modalities for pain/sensation management. STG Duration 10/26/22 Geospatial Systems Integrator Goal (LTG) Pt goal is to not have pain, normal again. has 11 and 9 yo and wants to travel. No sensation, pain in heel - with way to take care. LTG Duration 12/09/22 Assessment Summary Assessment Pt presents with mechanical deviations of the lower lumbar spine and sacrum (in L rotation). He has increased tension in the gluteals and very limited hip IR mobility; therefore he may be having neural symptoms of the feet from Piriformis tightness in addition to mechanical dysfunction. The did have slight reduction in the sensation of his feet with manual lumbar traction. Symptoms of changes in feet sensation are more consistent with possible spinal stenosis . Further imaging may be needed if progress is not made with physical therapy. The pt will benefit from skilled physical therapy for pt education in proper posturing and gait training, therapeutic ex, STM, JMT of SIJ's & lumbar spine, and modalities. Physical Therapy Plan Frequency and Duration Frequency of Treatment 2x/Week Plan of Care Start Date 09/10/22 Plan of Care End Date 12/09/22 Therapeutic Interventions Therapeutic Interventions Gait Training,Home Exercise Program,Manual Therapy, Neuromuscular Re-education, Patient/Caregiver Education, Self-Care/Home Management,Soft Tissue Mobilization,Taping, Therapeutic Activities, Therapeutic Exercises Modalities Cold Pack/Ice Massage,Electric Stimulation,Hot Packs, Ultrasound Other Referrals/Consults Referrals/Consults Recommended Recommend more recent imaging of the lumbar spine to rule out lumbar involvement. Next Visit Focus/Plan Next Note Type Treatment Note Next Visit Plan Check feet sensation to sharp/ dull. ROM of ankle, MMT hip/ core. Check for pelvic obliquity (L SIJ dysfunction). Assess hip strength and endurance as limited by neuropathy of the feet. Education: Proper posture sit , stand, at rest (supine/ sidelie) Manual: STM of back and L hip >R hip. Try Mechanical traction if + response to manual lumbar traction. Ex's/HEP: Piriformis stretch and hip ER stretch, pelvic/ core stabilization. Plan of Care Dates Plan of Care Start Date 09/10/22 Plan of Care End Date 12/09/22 Electronically Signed by: Domi Bush, PT 09/10/221936 If you are in agreement with this Plan of Care, please return a signed and dated copy. I have reviewed this Plan of Care and certify that the skilled therapy services above are required to meet the patient?s needs. Physician Signature Date Printed Name and Credentials Clinical Instructor Signature Printed Name and Credentials
--- NOTE | 2022-09-14 17:08 | PT.OTN ---
Current Diagnoses Polyneuropathy, unspecified (09/14/22) Radiculopathy, site unspecified (09/14/22) Muscle weakness (generalized) (09/14/22) Abnormal posture (09/14/22) Other reduced mobility (09/14/22) Physical Therapy Treatment Note PT-OP-A Visit Information Start: 09/06/22 18:45 Freq: Status: Active Protocol: Document 09/14/22 13:04 LRN (Rec: 09/14/22 16:59 LRN [id number]) Out-Patient Physical Therapy Visit Information Visit Information Visit Type Treatment Note Visit Start Time 13:04 Visit Stop Time 13:50 Total Visit Minutes 46 Visit Number Evaluation Information Evaluation Date 09/10/22 Precautions Precautions Hernia-R front mesh. PT-OP-B Current Condition Start: 09/06/22 18:45 Freq: Status: Active Protocol: Document 09/10/22 13:03 LRN (Rec: 09/10/22 19:20 LRN [id number]) Current Condition History of Current Condition Onset Date Few months ago Current Complaints Sonny foot stephanie feeling and feeling of socks on feet. History of Current Condition Few months ago went for a walk wearing his orthotics and hurt his L heel. He took it easy and 3 weeks later he started to get neuropathy, a feeling of sandiness and sock on L foot. Now the neuropathy has started in his R foot. Denies foot pain. States he stands a lot with a wide spread stance. States he feels hot/cold, tickling, feels like bunched sock in toes and the tingling as if feet have fallen asleep, comes and goes with standing. States he has weakness in his legs. Does [employer] bike and yoga daily. 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 Future Testing and Treatments Planned 09/24/22: Supervisor Sewer Maintenance appt (Dr Emilia Hinton in ) 09/26/22: Accupuncture appt. Developmental History Developmental History Occasionally has had achilles tendonitis of L heel (pain on heel and outside of heel) and he would ice it. 10 yrs ago he was carrying his daughter, and she tried to throw herself onto the ground, causing him to quickly bend forward to keep from dropping her, since then he has had R thigh sensations (wet) and if he stands for excessive time his R thigh kang. When he worked, 16-18 hr days he had achy feet. Treatment Goals Patient/Caregiver Goals Pt goal is to not have pain, normal again. has 11 and 9 yo and wants to travel. No sensation, pain in heel - with way to take care. No pain with walking. Prior Functional Status Baseline Function- ADL's Independent Baseline Function- Mobility Independent Baseline Function- Work/School Building his deck, odd standing. Baseline Function- Recreation/Hobbies Worked in garden. Current Functional Impairments (Reported) Functional Limitations- ADL's Difficulty hauling his trash can up his driveway because the feet feel like he has been working all day. Functional Limitations- Mobility/Gait Weakness in legs; therefore not confident in gait. Clumsiness. Functional Limitations- Work/School Self employed. Functional Limitations- Recreation/ Does [employer] bike and yoga Hobbies daily. Personal Factors Other Personal Factors That May Effect Pt reports being very active Therapy/Recovery and is wanting to travel with his spouse and children ages 12 & 10. Back injury 10 yrs ago. Flattened arches requiring orthotics in shoes. PT-OP-C Subjective Start: 09/06/22 18:45 Freq: Status: Active Protocol: Document 09/14/22 13:04 LRN (Rec: 09/14/22 16:59 LRN [id number]) OP-PT Subjective Patient Comments Patient Comments States after manual L/S traction feels a little more tight in feet, but less stephanie . PT-OP-G Mobility & Gait Start: 09/06/22 18:45 Freq: Status: Active Protocol: Document 09/10/22 13:03 LRN (Rec: 09/10/22 19:20 LRN [id number]) OP Gait Assessment Gait Gait Assistance Required: Independent Able to Maintain Weight Bearing Status Yes During Gait Assistive Devices Assistive Device None Gait Deviations General Gait Pattern Flexed Trunk,Wide Based Gait Factors Limiting Gait Function Factors Limiting Gait Function Decreased Sensation,Decreased Strength,Pain Comments Gait Comments Pain in heels with heel strike . PT-OP-H Neuro Start: 09/06/22 18:45 Freq: Status: Active Protocol: Document 09/10/22 13:03 LRN (Rec: 09/10/22 19:20 LRN [id number]) Sensation Evaluation Gross Sensation Gross Sensation WNL,Left LE Impaired,Right LE Impaired Sensation Description Tingling,Pins & [place], Heaviness Comments Summary Comments Pt is able to feel light touch /firm pressure difference, and reports having normal sensation to hot/cold. Deep Tendon Reflex & Clonus Assessment Deep Tendon Reflex Bilateral Achilles Deep Tendon Reflex 2+ Normal PT-OP-J Posture/Palpation/Skin Start: 09/06/22 18:45 Freq: Status: Active Protocol: Document 09/14/22 13:04 LRN (Rec: 09/14/22 16:59 LRN [id number]) Palpation Assessment Location Medial Malleoli in supine Palpation Location Medial malleolus Palpation Details L leg is short/ R leg long. PT-OP-K Range of Motion Start: 09/06/22 18:45 Freq: Status: Active Protocol: Document 09/10/22 13:03 LRN (Rec: 09/10/22 19:20 LRN [id number]) Hip Goniometric Range of Motion Hip Right Passive Testing Position Supine Straight Leg Raise 105 Internal Rotation 15 External Rotation 70 Left Passive Testing Position Supine Straight Leg Raise 105 Internal Rotation 20 External Rotation 65 PT-OP-Q Treatments Start: 09/06/22 18:45 Freq: Status: Active Protocol: Document 09/14/22 13:04 LRN (Rec: 09/14/22 16:59 LRN [id number]) Therapeutic Exercises Supine Exercises TA ex Supine Exercise Name Haha & light cough TA training Reps/Minutes 2' Comments Cuing with hands on belly TA tightening Supine Exercise Name TA tightening Reps/Minutes 2' Comments Cued hands on belly & chest for TA & TA/breath training. Sitting Exercises Piriformis stretch Sitting Exercise Name Piriformis stretch Side bilateral Reps/Minutes 5' Manual Therapy Treatment Joint Mobilizations R SIJ Joint R SIJ Direction Correction of anteriorly rot innominate (resist hip ext) Body Position Supine Reps/Duration 8' L SIJ Joint L SIJ Direction Correction of posteriorly rotated innominate (resisted flex) Body Position Supine Reps/Duration 8' Manual Traction Lumbar Details Manual Lumbar traction - thru 2 breathes Body Position Hooklying Reps/Duration 10' Comments Decrease in stephanie feeling of feet a little Self-Care/Home Management Treatment Education Patient Education Body Mechanics Activities Self-Care/Home Management Activities Reviewed SKTC & Piriformis stretch ex. PT-OP-T Assessment and Plan Start: 09/06/22 18:45 Freq: Status: Active Protocol: Document 09/14/22 13:04 LRN (Rec: 09/14/22 16:59 LRN [id number]) Physical Therapy Assessment Goals Three Impairment Heel pain with gait rated 2-3/ 10. Short Term Goal (STG) Improve hip rotational mobility (IR>ER) with lessening heel pain with gait. STG Duration 10/26/22 Modeling Instructor Goal (LTG) Pelvic symmetry and stability ex's with no heel pain when walking. LTG Duration 12/09/22 Two Impairment Neuropathy of feet Impairment Sensation: Stephanie and wearing a wrinkled sock feeling worse in ball of feet and 1-3 digits of the toes, plantar surface. Short Term Goal (STG) Pt will be educated in proper body mechanics. STG Duration 10/26/22 Modeling Instructor Goal (LTG) Normalize sensation in the feet bilaterally. LTG Duration 12/09/22 One Impairment Lacks appropriate self care HEP. Short Term Goal (STG) Pt will be educated in proper posturing and use of home modalities for pain/sensation management. STG Duration 10/26/22 Modeling Instructor Goal (LTG) Pt goal is to not have pain, normal again. has 11 and 9 yo and wants to travel. No sensation, pain in heel - with way to take care. 09/14/22: I/S in TA strengthening. LTG Duration 12/09/22 progressing Assessment Summary Assessment Pt notes normal sensation to sharp/dull previously assessed . Mild L innom manager patient rotated/R innom anter rotated. Corrected innominate rotation to both sides. Pt not able to automatically contract TA and had difficulty holding TA due to ms spasm of back; therefore poor core control. Physical Therapy Plan Frequency and Duration Frequency of Treatment 2x/Week Plan of Care Start Date 09/10/22 Plan of Care End Date 12/09/22 Next Visit Focus/Plan Next Note Type Treatment Note Next Visit Plan Check ROM of ankles, MMT hip/ core. Education: Proper posture sit , stand, at rest (supine/ sidelie). Educate in use of home modalities for pain/ sensation management. Monitor for pelvic obliquity ( L SIJ manager patient rot). Assess hip strength and endurance as limited by neuropathy of the feet. Manual: STM of back and L hip >R hip. Try Mechanical traction if + response to manual lumbar traction. Ex's/HEP: Piriformis stretch and hip ER stretch, pelvic/ core stabilization.
--- NOTE | 2022-09-18 16:33 | PT.OTN ---
Current Diagnoses Polyneuropathy, unspecified (09/18/22) Radiculopathy, site unspecified (09/18/22) Muscle weakness (generalized) (09/18/22) Abnormal posture (09/18/22) Other reduced mobility (09/18/22) Physical Therapy Treatment Note PT-OP-A Visit Information Start: 09/06/22 18:45 Freq: Status: Active Protocol: Document 09/18/22 13:03 LRN (Rec: 09/18/22 13:49 LRN [id number]) Out-Patient Physical Therapy Visit Information Visit Information Visit Type Treatment Note Visit Start Time 13:03 Visit Stop Time 13:48 Total Visit Minutes 45 Visit Number Evaluation Information Evaluation Date 09/10/22 Precautions Precautions Hernia-R front mesh. PT-OP-B Current Condition Start: 09/06/22 18:45 Freq: Status: Active Protocol: Document 09/10/22 13:03 LRN (Rec: 09/10/22 19:20 LRN [id number]) Current Condition History of Current Condition Onset Date Few months ago Current Complaints Sonny foot stephanie feeling and feeling of socks on feet. History of Current Condition Few months ago went for a walk wearing his orthotics and hurt his L heel. He took it easy and 3 weeks later he started to get neuropathy, a feeling of sandiness and sock on L foot. Now the neuropathy has started in his R foot. Denies foot pain. States he stands a lot with a wide spread stance. States he feels hot/cold, tickling, feels like bunched sock in toes and the tingling as if feet have fallen asleep, comes and goes with standing. States he has weakness in his legs. Does [employer] bike and yoga daily. 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 Future Testing and Treatments Planned 09/24/22: Seismic Interpreter appt (Dr Emilia Hinton in ) 09/26/22: Accupuncture appt. Developmental History Developmental History Occasionally has had achilles tendonitis of L heel (pain on heel and outside of heel) and he would ice it. 10 yrs ago he was carrying his daughter, and she tried to throw herself onto the ground, causing him to quickly bend forward to keep from dropping her, since then he has had R thigh sensations (wet) and if he stands for excessive time his R thigh kang. When he worked, 16-18 hr days he had achy feet. Treatment Goals Patient/Caregiver Goals Pt goal is to not have pain, normal again. has 12 and 9 yo and wants to travel. No sensation, pain in heel - with way to take care. No pain with walking. Prior Functional Status Baseline Function- ADL's Independent Baseline Function- Mobility Independent Baseline Function- Work/School Building his deck, odd standing. Baseline Function- Recreation/Hobbies Worked in garden. Current Functional Impairments (Reported) Functional Limitations- ADL's Difficulty hauling his trash can up his driveway because the feet feel like he has been working all day. Functional Limitations- Mobility/Gait Weakness in legs; therefore not confident in gait. Clumsiness. Functional Limitations- Work/School Self employed. Functional Limitations- Recreation/ Does [employer] bike and yoga Hobbies daily. Personal Factors Other Personal Factors That May Effect Pt reports being very active Therapy/Recovery and is wanting to travel with his spouse and children ages 12 & 10. Back injury 10 yrs ago. Flattened arches requiring orthotics in shoes. PT-OP-C Subjective Start: 09/06/22 18:45 Freq: Status: Active Protocol: Document 09/18/22 13:03 LRN (Rec: 09/18/22 13:49 LRN [id number]) OP-PT Subjective Patient Comments Patient Comments States the volume got turned down, area of static on the foot is narrowing and intensity of sand is less. States yesterday was a bad day , On Sat did at home like did here with his TNS unit and feel asleep, then he did the inversion table for a couple of miniutes and was sore the next day, but soreness has lessened each day since. States he was able to do a TA in sitting better than in supine. PT-OP-G Mobility & Gait Start: 09/06/22 18:45 Freq: Status: Active Protocol: Document 09/10/22 13:03 LRN (Rec: 09/10/22 19:20 LRN [id number]) OP Gait Assessment Gait Gait Assistance Required: Independent Able to Maintain Weight Bearing Status Yes During Gait Assistive Devices Assistive Device None Gait Deviations General Gait Pattern Flexed Trunk,Wide Based Gait Factors Limiting Gait Function Factors Limiting Gait Function Decreased Sensation,Decreased Strength,Pain Comments Gait Comments Pain in heels with heel strike . PT-OP-H Neuro Start: 09/06/22 18:45 Freq: Status: Active Protocol: Document 09/10/22 13:03 LRN (Rec: 09/10/22 19:20 LRN [id number]) Sensation Evaluation Gross Sensation Gross Sensation WNL,Left LE Impaired,Right LE Impaired Sensation Description Tingling,Pins & [place], Heaviness Comments Summary Comments Pt is able to feel light touch /firm pressure difference, and reports having normal sensation to hot/cold. Deep Tendon Reflex & Clonus Assessment Deep Tendon Reflex Bilateral Achilles Deep Tendon Reflex 2+ Normal PT-OP-J Posture/Palpation/Skin Start: 09/06/22 18:45 Freq: Status: Active Protocol: Document 09/14/22 13:04 LRN (Rec: 09/14/22 16:59 LRN [id number]) Palpation Assessment Location Medial Malleoli in supine Palpation Location Medial malleolus Palpation Details L leg is short/ R leg long. PT-OP-K Range of Motion Start: 09/06/22 18:45 Freq: Status: Active Protocol: Document 09/10/22 13:03 LRN (Rec: 09/10/22 19:20 LRN [id number]) Hip Goniometric Range of Motion Hip Right Passive Testing Position Supine Straight Leg Raise 105 Internal Rotation 15 External Rotation 70 Left Passive Testing Position Supine Straight Leg Raise 105 Internal Rotation 20 External Rotation 65 PT-OP-M Strength Start: 09/06/22 18:45 Freq: Status: Active Protocol: Document 09/18/22 13:03 LRN (Rec: 09/18/22 16:24 LRN [id number]) Trunk Strength Trunk Manual Muscle Testing Core Stabilization Pt has mild loss of core stability with MMT of LE's, especially with testing of R hip flexion (weak L trunk rot) . Hip Strength Hip Manual Muscle Testing Right Comments Generally 5/5 Left Extension (S1) 4 Good Adduction 3 Fair External Rotation 3+ Fair+ Comments Generally 5/5 except as indicated abovel PT-OP-Q Treatments Start: 09/06/22 18:45 Freq: Status: Active Protocol: Document 09/18/22 13:03 LRN (Rec: 09/18/22 13:49 LRN [id number]) Therapeutic Exercises Supine Exercises DKTC stretch Supine Exercise Name DKTC Side bilateral Reps/Minutes 10 SH x 10 Comments [place] in hips and saddle Lateral Hip stretch Supine Exercise Name Lateral hip stretch Side right Reps/Minutes 2' Piriformis stretch Supine Exercise Name Ankle over knee Piriformis stretch. Side right Reps/Minutes 2' Sitting Exercises FB stretch Sitting Exercise Name FB stretch Reps/Minutes 3' Piriformis stretch Sitting Exercise Name Piriformis stretch (L>R) Side bilateral Reps/Minutes 5' Comments Extra time taken to get proper stretch Standing Exercises TA tightening Standing Exercise Name TA tightening Reps/Minutes 5' Comments Cuing for holding TA through 10 secs and through shallow/ normal breathing. Self-Care/Home Management Treatment Education Patient Education Body Mechanics,Posture Other Education Pt Education: -Proper posture sit, stand, at rest (supine/sidelie). -Proper body mechanics. -Use of home modalities for pain/sensation management. PT-OP-T Assessment and Plan Start: 09/06/22 18:45 Freq: Status: Active Protocol: Document 09/18/22 13:03 LRN (Rec: 09/18/22 13:49 LRN [id number]) Physical Therapy Assessment Goals Three Impairment Heel pain with gait rated 2-3/ 10. Short Term Goal (STG) Improve hip rotational mobility (IR>ER) with lessening heel pain with gait. STG Duration 10/26/22 Assisted Goal (LTG) Pelvic symmetry and stability ex's with no heel pain when walking. 09/18/22: Pelvis symmetrical. Heel pain is in variable locations (inner and outer heel). LTG Duration 12/09/22 partially met goal 09/18/22. Two Impairment Neuropathy of feet Impairment Sensation: Stephanie and wearing a wrinkled sock feeling worse in ball of feet and 1-3 digits of the toes, plantar surface. Short Term Goal (STG) Pt will be educated in proper body mechanics. STG Duration 10/26/22 (09/18/22: MET GOAL) Scientific Affairs Manager Goal (LTG) Normalize sensation in the feet bilaterally. LTG Duration 12/09/22 One Impairment Lacks appropriate self care HEP. Short Term Goal (STG) Pt will be educated in proper posturing and use of home modalities for pain/sensation management. STG Duration 10/26/22 (09/18/22: MET GOAL) Assisted Goal (LTG) Pt goal is to not have pain, normal again. has 11 and 9 yo and wants to travel. No sensation, pain in heel - with way to take care. 09/14/22: I/S in TA strengthening. LTG Duration 12/09/22 progressing Progress Towards Goals Progress Comments STG #1 & #2: MET GOAL. LTG #3: Partially met goal. Assessment Summary Assessment L hip has weakness with AB/AD/ Ext and core is weak with inability to maintain stability with MMT of LE's. DKTC stretch creates saddle stretch. Pt very receptive to education of posture, proper body mechanics, and use of modalities. Pt has decreased mobility of R sacrum for inferior glide and PA of L side of Sacrum, possibly due to tight R hip muscles. Pt using inversion table at home 2-3' with reported inversion of < or = 30 deg's, noting a good stretch in back. Physical Therapy Plan Frequency and Duration Frequency of Treatment 2x/Week Plan of Care Start Date 09/10/22 Plan of Care End Date 12/09/22 Next Visit Focus/Plan Next Note Type Progress Note Next Visit Plan Monitor for pelvic obliquity ( L SIJ blanket cutter hand rot). Assess hip endurance as limited by neuropathy of the feet (sit<>stands or march test). Manual: STM of back and L hip >R hip. Try Mechanical traction if + response to manual lumbar traction. Ex's/HEP: Piriformis stretch and hip ER stretch, pelvic/ core stabilization.
--- NOTE | 2022-09-28 13:54 | PT.OTN ---
Current Diagnoses Polyneuropathy, unspecified (09/28/22) Radiculopathy, site unspecified (09/28/22) Muscle weakness (generalized) (09/28/22) Abnormal posture (09/28/22) Other reduced mobility (09/28/22) Physical Therapy Treatment Note PT-OP-A Visit Information Start: 09/06/22 18:45 Freq: Status: Active Protocol: Document 09/28/22 13:05 LRN (Rec: 09/28/22 13:53 LRN [id number]) Out-Patient Physical Therapy Visit Information Visit Information Visit Type Treatment Note Visit Start Time 13:05 Visit Stop Time 13:45 Total Visit Minutes 42 Visit Number Evaluation Information Evaluation Date 09/10/22 Precautions Precautions Hernia-R front mesh. PT-OP-B Current Condition Start: 09/06/22 18:45 Freq: Status: Active Protocol: Document 09/10/22 13:03 LRN (Rec: 09/10/22 19:20 LRN [id number]) Current Condition History of Current Condition Onset Date Few months ago Current Complaints Sonny foot stephanie feeling and feeling of socks on feet. History of Current Condition Few months ago went for a walk wearing his orthotics and hurt his L heel. He took it easy and 3 weeks later he started to get neuropathy, a feeling of sandiness and sock on L foot. Now the neuropathy has started in his R foot. Denies foot pain. States he stands a lot with a wide spread stance. States he feels hot/cold, tickling, feels like bunched sock in toes and the tingling as if feet have fallen asleep, comes and goes with standing. States he has weakness in his legs. Does [employer]irdyne bike and yoga daily. 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 Future Testing and Treatments Planned 09/24/22: Delivery Recruiter appt (Dr Emilia Hinton in ) 09/26/22: Accupuncture appt. Developmental History Developmental History Occasionally has had achilles tendonitis of L heel (pain on heel and outside of heel) and he would ice it. 10 yrs ago he was carrying his daughter, and she tried to throw herself onto the ground, causing him to quickly bend forward to keep from dropping her, since then he has had R thigh sensations (wet) and if he stands for excessive time his R thigh kang. When he worked, 16-18 hr days he had achy feet. Treatment Goals Patient/Caregiver Goals Pt goal is to not have pain, normal again. has 12 and 9 yo and wants to travel. No sensation, pain in heel - with way to take care. No pain with walking. Prior Functional Status Baseline Function- ADL's Independent Baseline Function- Mobility Independent Baseline Function- Work/School Building his deck, odd standing. Baseline Function- Recreation/Hobbies Worked in garden. Current Functional Impairments (Reported) Functional Limitations- ADL's Difficulty hauling his trash can up his driveway because the feet feel like he has been working all day. Functional Limitations- Mobility/Gait Weakness in legs; therefore not confident in gait. Clumsiness. Functional Limitations- Work/School Self employed. Functional Limitations- Recreation/ Does [employer] bike and yoga Hobbies daily. Personal Factors Other Personal Factors That May Effect Pt reports being very active Therapy/Recovery and is wanting to travel with his spouse and children ages 12 & 10. Back injury 10 yrs ago. Flattened arches requiring orthotics in shoes. PT-OP-C Subjective Start: 09/06/22 18:45 Freq: Status: Active Protocol: Document 09/28/22 13:05 LRN (Rec: 09/28/22 13:53 LRN [id number]) OP-PT Subjective Patient Comments Patient Comments Saw accupuncturist today and yesterday (~2x/week) and requested no STM on day he does accupuncturist. Feels PT has been helpful and accupuncture is helpful for plantar fascitis. Accupuncture is breaking back up and therefore is more sore . Sit<>stand feels like less of a tightening spasm feeling that doesn't last as long. Delivery Recruiter says plantarfascitis is the problem he saw along with arthritis and offered surgical options. Sensation in the feet since 2 days ago is normal in the medial and lateral sides except midline from heel to toes 2,3,4, bilaterally. Return of sensation day after accupuncture treatment. PT-OP-G Mobility & Gait Start: 09/06/22 18:45 Freq: Status: Active Protocol: Document 09/10/22 13:03 LRN (Rec: 09/10/22 19:20 LRN [id number]) OP Gait Assessment Gait Gait Assistance Required: Independent Able to Maintain Weight Bearing Status Yes During Gait Assistive Devices Assistive Device None Gait Deviations General Gait Pattern Flexed Trunk,Wide Based Gait Factors Limiting Gait Function Factors Limiting Gait Function Decreased Sensation,Decreased Strength,Pain Comments Gait Comments Pain in heels with heel strike . PT-OP-H Neuro Start: 09/06/22 18:45 Freq: Status: Active Protocol: Document 09/10/22 13:03 LRN (Rec: 09/10/22 19:20 LRN [id number]) Sensation Evaluation Gross Sensation Gross Sensation WNL,Left LE Impaired,Right LE Impaired Sensation Description Tingling,Pins & [place], Heaviness Comments Summary Comments Pt is able to feel light touch /firm pressure difference, and reports having normal sensation to hot/cold. Deep Tendon Reflex & Clonus Assessment Deep Tendon Reflex Bilateral Achilles Deep Tendon Reflex 2+ Normal PT-OP-J Posture/Palpation/Skin Start: 09/06/22 18:45 Freq: Status: Active Protocol: Document 09/14/22 13:04 LRN (Rec: 09/14/22 16:59 LRN [id number]) Palpation Assessment Location Medial Malleoli in supine Palpation Location Medial malleolus Palpation Details L leg is short/ R leg long. PT-OP-K Range of Motion Start: 09/06/22 18:45 Freq: Status: Active Protocol: Document 09/10/22 13:03 LRN (Rec: 09/10/22 19:20 LRN [id number]) Hip Goniometric Range of Motion Hip Right Passive Testing Position Supine Straight Leg Raise 105 Internal Rotation 15 External Rotation 70 Left Passive Testing Position Supine Straight Leg Raise 105 Internal Rotation 20 External Rotation 65 PT-OP-M Strength Start: 09/06/22 18:45 Freq: Status: Active Protocol: Document 09/18/22 13:03 LRN (Rec: 09/18/22 16:24 LRN [id number]) Trunk Strength Trunk Manual Muscle Testing Core Stabilization Pt has mild loss of core stability with MMT of LE's, especially with testing of R hip flexion (weak L trunk rot) . Hip Strength Hip Manual Muscle Testing Right Comments Generally 5/5 Left Extension (S1) 4 Good Adduction 3 Fair External Rotation 3+ Fair+ Comments Generally 5/5 except as indicated abovel PT-OP-Q Treatments Start: 09/06/22 18:45 Freq: Status: Active Protocol: Document 09/28/22 13:05 LRN (Rec: 09/28/22 13:53 LRN [id number]) Therapeutic Exercises Supine Exercises SKTC Supine Exercise Name SKTC Side bilateral Reps/Minutes 2x DKTC stretch Supine Exercise Name DKTC Side bilateral Reps/Minutes 10 SH x 10 Comments [place] in hips and saddle Lateral Hip stretch Supine Exercise Name Lateral hip stretch Side right Equipment Used 2x Reps/Minutes 2' Piriformis stretch Supine Exercise Name Reveiwed, but pt prefers to do in sitting Reps/Minutes 1' TA tightening Supine Exercise Name TA tightening-Pt not like this position Reps/Minutes 2' Comments Cued hands on belly & chest for TA & TA/breath training. Sidelying Exercises TA tightening Sidelying Exercise Name TA tightening Reps/Minutes 3' Sitting Exercises TA tightening Sitting Exercise Name TA tightening Reps/Minutes 2' Gluteal/LB stretch Sitting Exercise Name Cross legged with trunk FB stretch Side bilateral Reps/Minutes 3' Piriformis stretch Sitting Exercise Name Piriformis stretch (L>R) Side bilateral Reps/Minutes 5' Comments Extra time taken to get proper stretch, much cuing to lead with chest. Manual Therapy Treatment Manual Traction Lumbar Details Manual Lumbar traction - thru 2 breathes Body Position Hooklying Reps/Duration 10' Comments Normalized sensation in feet except for tingling in R big toe. Self-Care/Home Management Treatment Activities Self-Care/Home Management Activities I/S pt to avoid excessive forward bending stretching of LB, bouncing of body, and and sidelie or sup vs sitting, and not sit slumped. I/S pt in sidelie, sitting, standing TA strengthening. PT-OP-T Assessment and Plan Start: 09/06/22 18:45 Freq: Status: Active Protocol: Document 09/28/22 13:05 LRN (Rec: 09/28/22 13:53 LRN [id number]) Physical Therapy Assessment Goals Three Impairment Heel pain with gait rated 2-3/ 10. Short Term Goal (STG) Improve hip rotational mobility (IR>ER) with lessening heel pain with gait. STG Duration 10/26/22 Data Warehouse Developer Goal (LTG) Pelvic symmetry and stability ex's with no heel pain when walking. 09/18/22: Pelvis symmetrical. Heel pain is in variable locations (inner and outer heel). LTG Duration 12/09/22 partially met goal 09/18/22. Two Impairment Neuropathy of feet Impairment Sensation: Stephanie and wearing a wrinkled sock feeling worse in ball of feet and 1-3 digits of the toes, plantar surface. Short Term Goal (STG) Pt will be educated in proper body mechanics. STG Duration 10/26/22 (09/18/22: MET GOAL) Data Warehouse Developer Goal (LTG) Normalize sensation in the feet bilaterally. LTG Duration 12/09/22 One Impairment Lacks appropriate self care HEP. Short Term Goal (STG) Pt will be educated in proper posturing and use of home modalities for pain/sensation management. STG Duration 10/26/22 (09/18/22: MET GOAL) Data Warehouse Developer Goal (LTG) Pt goal is to not have pain, normal again. has 12 and 9 yo and wants to travel. No sensation, pain in heel - with way to take care. 09/14/22: I/S in TA strengthening. LTG Duration 12/09/22 progressing Assessment Summary Assessment No change in sensation, but pt feeling more mobility sensation. Later in treatment pt reported normalize sensation in feet except for toes 2,3,4 from heel to toes ( plantar surface). + response to lumbar traction with normalize sensation during traction except in R big toe ( plantar surface). After traction normalized foot except in distal 1/2 of foot ( plantar surface). Pt needed much review of ex's. Pt requests no STM on days due to accupuncturist request. Very slight inflare R but no rotation in innominates. Physical Therapy Plan Frequency and Duration Frequency of Treatment 2x/Week Plan of Care Start Date 09/10/22 Plan of Care End Date 12/09/22 Next Visit Focus/Plan Next Note Type Progress Note Next Visit Plan Monitor for pelvic obliquity ( L SIJ shot lighter rot). Assess hip endurance as limited by neuropathy of the feet (sit<>stands or march test). Manual: No STM on days due to accupuncturist request. STM of back and L hip>R hip. Try Mechanical traction if + response to manual lumbar traction. Ex's/HEP: Piriformis stretch and hip ER stretch, pelvic/ core stabilization.
--- NOTE | 2022-10-02 14:59 | PT.OTN ---
Current Diagnoses Polyneuropathy, unspecified (10/02/22) Radiculopathy, site unspecified (10/02/22) Muscle weakness (generalized) (10/02/22) Abnormal posture (10/02/22) Other reduced mobility (10/02/22) Physical Therapy Treatment Note PT-OP-A Visit Information Start: 09/06/22 18:45 Freq: Status: Active Protocol: Document 10/02/22 13:00 LRN (Rec: 10/02/22 13:47 LRN [id number]) Out-Patient Physical Therapy Visit Information Visit Information Visit Type Treatment Note Visit Start Time 13:00 Visit Stop Time 13:40 Total Visit Minutes 40 Visit Number Evaluation Information Evaluation Date 09/10/22 Precautions Precautions Hernia-R front mesh. PT-OP-B Current Condition Start: 09/06/22 18:45 Freq: Status: Active Protocol: Document 09/10/22 13:03 LRN (Rec: 09/10/22 19:20 LRN [id number]) Current Condition History of Current Condition Onset Date Few months ago Current Complaints Sonny foot lyubov feeling and feeling of socks on feet. History of Current Condition Few months ago went for a walk wearing his orthotics and hurt his L heel. He took it easy and 3 weeks later he started to get neuropathy, a feeling of sandiness and sock on L foot. Now the neuropathy has started in his R foot. Denies foot pain. States he stands a lot with a wide spread stance. States he feels hot/cold, tickling, feels like bunched sock in toes and the tingling as if feet have fallen asleep, comes and goes with standing. States he has weakness in his legs. Does [employer] bike and yoga daily. 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 Future Testing and Treatments Planned 09/24/22: Account Solutions Analyst appt (Dr Emilia Hinton in ) 09/26/22: Accupuncture appt. Developmental History Developmental History Occasionally has had achilles tendonitis of L heel (pain on heel and outside of heel) and he would ice it. 10 yrs ago he was carrying his daughter, and she tried to throw herself onto the ground, causing him to quickly bend forward to keep from dropping her, since then he has had R thigh sensations (wet) and if he stands for excessive time his R thigh kang. When he worked, 16-18 hr days he had achy feet. Treatment Goals Patient/Caregiver Goals Pt goal is to not have pain, normal again. has 12 and 9 yo and wants to travel. No sensation, pain in heel - with way to take care. No pain with walking. Prior Functional Status Baseline Function- ADL's Independent Baseline Function- Mobility Independent Baseline Function- Work/School Building his deck, odd standing. Baseline Function- Recreation/Hobbies Worked in garden. Current Functional Impairments (Reported) Functional Limitations- ADL's Difficulty hauling his trash can up his driveway because the feet feel like he has been working all day. Functional Limitations- Mobility/Gait Weakness in legs; therefore not confident in gait. Clumsiness. Functional Limitations- Work/School Self employed. Functional Limitations- Recreation/ Does [employer] bike and yoga Hobbies daily. Personal Factors Other Personal Factors That May Effect Pt reports being very active Therapy/Recovery and is wanting to travel with his spouse and children ages 12 & 10. Back injury 10 yrs ago. Flattened arches requiring orthotics in shoes. PT-OP-C Subjective Start: 09/06/22 18:45 Freq: Status: Active Protocol: Document 10/02/22 13:00 LRN (Rec: 10/02/22 13:47 LRN [id number]) OP-PT Subjective Patient Comments Patient Comments Legs feel weak today, but ziggyness is more concentrated at the front of the feet. Seeing accupuncturist on Fri; therefore STM is okay today. PT-OP-G Mobility & Gait Start: 09/06/22 18:45 Freq: Status: Active Protocol: Document 09/10/22 13:03 LRN (Rec: 09/10/22 19:20 LRN [id number]) OP Gait Assessment Gait Gait Assistance Required: Independent Able to Maintain Weight Bearing Status Yes During Gait Assistive Devices Assistive Device None Gait Deviations General Gait Pattern Flexed Trunk,Wide Based Gait Factors Limiting Gait Function Factors Limiting Gait Function Decreased Sensation,Decreased Strength,Pain Comments Gait Comments Pain in heels with heel strike . PT-OP-H Neuro Start: 09/06/22 18:45 Freq: Status: Active Protocol: Document 09/10/22 13:03 LRN (Rec: 09/10/22 19:20 LRN [id number]) Sensation Evaluation Gross Sensation Gross Sensation WNL,Left LE Impaired,Right LE Impaired Sensation Description Tingling,Pins & [place], Heaviness Comments Summary Comments Pt is able to feel light touch /firm pressure difference, and reports having normal sensation to hot/cold. Deep Tendon Reflex & Clonus Assessment Deep Tendon Reflex Bilateral Achilles Deep Tendon Reflex 2+ Normal PT-OP-J Posture/Palpation/Skin Start: 09/06/22 18:45 Freq: Status: Active Protocol: Document 09/14/22 13:04 LRN (Rec: 09/14/22 16:59 LRN [id number]) Palpation Assessment Location Medial Malleoli in supine Palpation Location Medial malleolus Palpation Details L leg is short/ R leg long. PT-OP-K Range of Motion Start: 09/06/22 18:45 Freq: Status: Active Protocol: Document 09/10/22 13:03 LRN (Rec: 09/10/22 19:20 LRN [id number]) Hip Goniometric Range of Motion Hip Right Passive Testing Position Supine Straight Leg Raise 105 Internal Rotation 15 External Rotation 70 Left Passive Testing Position Supine Straight Leg Raise 105 Internal Rotation 20 External Rotation 65 PT-OP-M Strength Start: 09/06/22 18:45 Freq: Status: Active Protocol: Document 09/18/22 13:03 LRN (Rec: 09/18/22 16:24 LRN [id number]) Trunk Strength Trunk Manual Muscle Testing Core Stabilization Pt has mild loss of core stability with MMT of LE's, especially with testing of R hip flexion (weak L trunk rot) . Hip Strength Hip Manual Muscle Testing Right Comments Generally 5/5 Left Extension (S1) 4 Good Adduction 3 Fair External Rotation 3+ Fair+ Comments Generally 5/5 except as indicated abovel PT-OP-Q Treatments Start: 09/06/22 18:45 Freq: Status: Active Protocol: Document 10/02/22 13:00 LRN (Rec: 10/02/22 13:47 LRN [id number]) Therapeutic Exercises Supine Exercises Sup>Sit Supine Exercise Name Sup>Sit training w/TA tightening Side left Reps/Minutes 1x Comments Phys & v cuing needed. SKTC Supine Exercise Name SKTC Side bilateral Reps/Minutes 2x DKTC stretch Supine Exercise Name DKTC Side bilateral Reps/Minutes 10 SH x 10 Comments [place] in hips and saddle Lateral Hip stretch Supine Exercise Name Lateral hip stretch Side right Equipment Used 2x Reps/Minutes 2' TA tightening Supine Exercise Name TA tightening-Pt able to do after several attempts Reps/Minutes 2' Comments Cued hands on belly & chest for TA & TA/breath training. Manual Therapy Treatment Soft Tissue Mobilization Piriformis stretch Body Location C/R R Piriformis (leg roll restricted on R) Mobilization Type Other Body Position Supine Comments 8' Sacral balancing Body Location PA L Sacral sulcus, and R JIMBO, L Ischium, 6pt balancing Mobilization Type Sustained Pressure Intensity/Depth Moderate Body Position Prone Comments 17' Manual Traction Lumbar Details Manual Lumbar traction - thru 2 breathes Body Position Hooklying Reps/Duration 7' Comments Normalized sensation in feet except for tingling in R big toe. PT-OP-T Assessment and Plan Start: 09/06/22 18:45 Freq: Status: Active Protocol: Document 10/02/22 13:00 LRN (Rec: 10/02/22 13:47 LRN [id number]) Physical Therapy Assessment Goals Three Impairment Heel pain with gait rated 2-3/ 10. Short Term Goal (STG) Improve hip rotational mobility (IR>ER) with lessening heel pain with gait. STG Duration 10/26/22 Penitentiary Goal (LTG) Pelvic symmetry and stability ex's with no heel pain when walking. 09/18/22: Pelvis symmetrical. Heel pain is in variable locations (inner and outer heel). LTG Duration 12/09/22 partially met goal 09/18/22. Two Impairment Neuropathy of feet Impairment Sensation: Lyubov and wearing a wrinkled sock feeling worse in ball of feet and 1-3 digits of the toes, plantar surface. Short Term Goal (STG) Pt will be educated in proper body mechanics. STG Duration 10/26/22 (09/18/22: MET GOAL) Penitentiary Goal (LTG) Normalize sensation in the feet bilaterally. 10/02/22: End of treatment decrease sandyfeeling to toes 1-3 bilaterally. LTG Duration 12/09/22 Intermittent progression 10/02/22 One Impairment Lacks appropriate self care HEP. Short Term Goal (STG) Pt will be educated in proper posturing and use of home modalities for pain/sensation management. STG Duration 10/26/22 (09/18/22: MET GOAL) Penitentiary Goal (LTG) Pt goal is to not have pain, normal again. has 11 and 9 yo and wants to travel. No sensation, pain in heel - with way to take care. 09/14/22: I/S in TA strengthening. LTG Duration 12/09/22 progressing Assessment Summary Assessment Toes went from all lyubov to only toes 1-3, bilaterally after treatment. No significant change after L/S manual traction, but improved sensation after Sacral Balancing and R Piriformis manual stretch. Symptoms are not consistent with L/S neural disc involvement, but neural changes due to spondylosis( Initial assessment: mechanical deviations of the lower lumbar spine and sacrum (in L rotation). Increased tension in the gluteals and very limited hip IR mobility). Physical Therapy Plan Frequency and Duration Frequency of Treatment 2x/Week Plan of Care Start Date 09/10/22 Plan of Care End Date 12/09/22 Next Visit Focus/Plan Next Note Type Treatment Note Next Visit Plan Monitor for pelvic obliquity ( L SIJ senior manager rot), need for sacral balancing and hip IR (R >L) stretching. Assess hip endurance as limited by neuropathy of the feet (sit<>stands or march test). Manual: No STM on days due to accupuncturist request. STM of back and L hip>R hip. Try Mechanical traction if + response to manual lumbar traction. Ex's/HEP: Piriformis stretch and hip ER stretch, pelvic/ core stabilization.
--- NOTE | 2022-10-05 13:47 | PT.OTN ---
Current Diagnoses Polyneuropathy, unspecified (10/05/22) Radiculopathy, site unspecified (10/05/22) Muscle weakness (generalized) (10/05/22) Abnormal posture (10/05/22) Other reduced mobility (10/05/22) Physical Therapy Treatment Note PT-OP-A Visit Information Start: 09/06/22 18:45 Freq: Status: Active Protocol: Document 10/05/22 13:03 LRN (Rec: 10/05/22 13:46 LRN [id number]) Out-Patient Physical Therapy Visit Information Visit Information Visit Type Treatment Note Visit Start Time 13:03 Visit Stop Time 13:43 Total Visit Minutes 40 Visit Number Evaluation Information Evaluation Date 09/10/22 Precautions Precautions Hernia-R front mesh. PT-OP-B Current Condition Start: 09/06/22 18:45 Freq: Status: Active Protocol: Document 09/10/22 13:03 LRN (Rec: 09/10/22 19:20 LRN [id number]) Current Condition History of Current Condition Onset Date Few months ago Current Complaints Sonny foot stephanie feeling and feeling of socks on feet. History of Current Condition Few months ago went for a walk wearing his orthotics and hurt his L heel. He took it easy and 3 weeks later he started to get neuropathy, a feeling of sandiness and sock on L foot. Now the neuropathy has started in his R foot. Denies foot pain. States he stands a lot with a wide spread stance. States he feels hot/cold, tickling, feels like bunched sock in toes and the tingling as if feet have fallen asleep, comes and goes with standing. States he has weakness in his legs. Does [employer]irdyne bike and yoga daily. 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 Future Testing and Treatments Planned 09/24/22: A[employer] Operator appt (Dr Emilia Hinton in ) 09/26/22: Accupuncture appt. Developmental History Developmental History Occasionally has had achilles tendonitis of L heel (pain on heel and outside of heel) and he would ice it. 10 yrs ago he was carrying his daughter, and she tried to throw herself onto the ground, causing him to quickly bend forward to keep from dropping her, since then he has had R thigh sensations (wet) and if he stands for excessive time his R thigh kang. When he worked, 16-18 hr days he had achy feet. Treatment Goals Patient/Caregiver Goals Pt goal is to not have pain, normal again. has 12 and 10 yo and wants to travel. No sensation, pain in heel - with way to take care. No pain with walking. Prior Functional Status Baseline Function- ADL's Independent Baseline Function- Mobility Independent Baseline Function- Work/School Building his deck, odd standing. Baseline Function- Recreation/Hobbies Worked in garden. Current Functional Impairments (Reported) Functional Limitations- ADL's Difficulty hauling his trash can up his driveway because the feet feel like he has been working all day. Functional Limitations- Mobility/Gait Weakness in legs; therefore not confident in gait. Clumsiness. Functional Limitations- Work/School Self employed. Functional Limitations- Recreation/ Does [employer] bike and yoga Hobbies daily. Personal Factors Other Personal Factors That May Effect Pt reports being very active Therapy/Recovery and is wanting to travel with his spouse and children ages 12 & 10. Back injury 10 yrs ago. Flattened arches requiring orthotics in shoes. PT-OP-C Subjective Start: 09/06/22 18:45 Freq: Status: Active Protocol: Document 10/05/22 13:03 LRN (Rec: 10/05/22 13:46 LRN [id number]) OP-PT Subjective Patient Comments Patient Comments After last session the volume of the sensation changed to low volume. States he has tingling and decreased sensation (electric current) in more places (sides of legs, hamstrings, calves, widespread feet) but is less intense. His low back 2 days ago felt his back do a pop, pop, pop, after doing the inversion table and the next day had more discomfort. Floor Trader is helping to decrease his plantar fascitis. PT-OP-G Mobility & Gait Start: 09/06/22 18:45 Freq: Status: Active Protocol: Document 09/10/22 13:03 LRN (Rec: 09/10/22 19:20 LRN [id number]) OP Gait Assessment Gait Gait Assistance Required: Independent Able to Maintain Weight Bearing Status Yes During Gait Assistive Devices Assistive Device None Gait Deviations General Gait Pattern Flexed Trunk,Wide Based Gait Factors Limiting Gait Function Factors Limiting Gait Function Decreased Sensation,Decreased Strength,Pain Comments Gait Comments Pain in heels with heel strike . PT-OP-H Neuro Start: 09/06/22 18:45 Freq: Status: Active Protocol: Document 09/10/22 13:03 LRN (Rec: 09/10/22 19:20 LRN [id number]) Sensation Evaluation Gross Sensation Gross Sensation WNL,Left LE Impaired,Right LE Impaired Sensation Description Tingling,Pins & [place], Heaviness Comments Summary Comments Pt is able to feel light touch /firm pressure difference, and reports having normal sensation to hot/cold. Deep Tendon Reflex & Clonus Assessment Deep Tendon Reflex Bilateral Achilles Deep Tendon Reflex 2+ Normal PT-OP-J Posture/Palpation/Skin Start: 09/06/22 18:45 Freq: Status: Active Protocol: Document 09/14/22 13:04 LRN (Rec: 09/14/22 16:59 LRN [id number]) Palpation Assessment Location Medial Malleoli in supine Palpation Location Medial malleolus Palpation Details L leg is short/ R leg long. PT-OP-K Range of Motion Start: 09/06/22 18:45 Freq: Status: Active Protocol: Document 09/10/22 13:03 LRN (Rec: 09/10/22 19:20 LRN [id number]) Hip Goniometric Range of Motion Hip Right Passive Testing Position Supine Straight Leg Raise 105 Internal Rotation 15 External Rotation 70 Left Passive Testing Position Supine Straight Leg Raise 105 Internal Rotation 20 External Rotation 65 PT-OP-M Strength Start: 09/06/22 18:45 Freq: Status: Active Protocol: Document 09/18/22 13:03 LRN (Rec: 09/18/22 16:24 LRN [id number]) Trunk Strength Trunk Manual Muscle Testing Core Stabilization Pt has mild loss of core stability with MMT of LE's, especially with testing of R hip flexion (weak L trunk rot) . Hip Strength Hip Manual Muscle Testing Right Comments Generally 5/5 Left Extension (S1) 4 Good Adduction 3 Fair External Rotation 3+ Fair+ Comments Generally 5/5 except as indicated abovel PT-OP-Q Treatments Start: 09/06/22 18:45 Freq: Status: Active Protocol: Document 10/05/22 13:03 LRN (Rec: 10/05/22 13:46 LRN [id number]) Therapeutic Exercises Supine Exercises Trunk rot stretch Supine Exercise Name Trunk Rot stretch Side bilateral Reps/Minutes 10 SH x 6 each DKTC stretch Supine Exercise Name DKTC Side bilateral Reps/Minutes 10 SH x 10 Comments [place] in hips and saddle Lateral Hip stretch Supine Exercise Name Lateral hip stretch Side right Equipment Used 2x Reps/Minutes 2' Piriformis stretch Supine Exercise Name Piriformis stretch Side bilateral Reps/Minutes 1x each TA tightening Supine Exercise Name TA tightening w/Lumbar manual traction due to abdominal ms cramps w/o tract Reps/Minutes 2' Comments Modification in holding time throughout session to deter max tolerated hold Sidelying Exercises TA tightening Sidelying Exercise Name TA tightening Side bilateral Reps/Minutes 10 SH x 4 Comments Holding > 10 on R side & 7 on L side, ms cramp in L abdom occurred. Sitting Exercises Fig 4/Trunk Rot Sitting Exercise Name Fig 4/Trunk rot Side bilateral Reps/Minutes 1x each Manual Therapy Treatment Soft Tissue Mobilization Piriformis stretch Body Location C/R R Piriformis (leg roll restricted on R) Mobilization Type Other Body Position Supine Comments 8' PT-OP-T Assessment and Plan Start: 09/06/22 18:45 Freq: Status: Active Protocol: Document 10/05/22 13:03 LRN (Rec: 10/05/22 13:46 LRN [id number]) Physical Therapy Assessment Goals Three Impairment Heel pain with gait rated 2-3/ 10. Short Term Goal (STG) Improve hip rotational mobility (IR>ER) with lessening heel pain with gait. STG Duration 10/26/22 Longterm Goal (LTG) Pelvic symmetry and stability ex's with no heel pain when walking. 09/18/22: Pelvis symmetrical. Heel pain is in variable locations (inner and outer heel). LTG Duration 12/09/22 partially met goal 09/18/22. Two Impairment Neuropathy of feet Impairment Sensation: Stephanie and wearing a wrinkled sock feeling worse in ball of feet and 1-3 digits of the toes, plantar surface. Short Term Goal (STG) Pt will be educated in proper body mechanics. STG Duration 10/26/22 (09/18/22: MET GOAL) Accounting File Clerk Goal (LTG) Normalize sensation in the feet bilaterally. 10/02/22: End of treatment decrease sandyfeeling to toes 1-3 bilaterally. LTG Duration 02/12/23 Intermittent progression 10/02/22 One Impairment Lacks appropriate self care HEP. Short Term Goal (STG) Pt will be educated in proper posturing and use of home modalities for pain/sensation management. STG Duration 10/26/22 (09/18/22: MET GOAL) Accounting File Clerk Goal (LTG) Pt goal is to not have pain, normal again. has 12 and 9 yo and wants to travel. No sensation, pain in heel - with way to take care. 09/14/22: I/S in TA strengthening. LTG Duration 12/09/22 progressing Assessment Summary Assessment Mechanical deviations of the lower lumbar spine and sacrum. Pt appears to have self mobilized in the lumbar spine 2 days ago (after using tilt table at home) with increased areas of symptoms but lessening sensation changes. To start he shows no pelvic obliquity. Physical Therapy Plan Frequency and Duration Frequency of Treatment 2x/Week Plan of Care Start Date 09/10/22 Plan of Care End Date 12/09/22 Next Visit Focus/Plan Next Note Type Treatment Note Next Visit Plan Hip IR (R>L) stretching. Assess hip endurance as limited by neuropathy of the feet (sit<>stands or march test). Manual: No STM on days due to accupuncturist request. STM of back and L hip>R hip. Try Mechanical traction due to + response to manual lumbar traction and pt using tilt table at home. Ex's/HEP: Piriformis stretch and hip ER stretch, pelvic/ core stabilization. Sacral balancing when needed.
--- NOTE | 2022-10-12 16:51 | PT.OTN ---
Current Diagnoses Polyneuropathy, unspecified (10/12/22) Radiculopathy, site unspecified (10/12/22) Muscle weakness (generalized) (10/12/22) Abnormal posture (10/12/22) Other reduced mobility (10/12/22) Physical Therapy Treatment Note PT-OP-A Visit Information Start: 09/06/22 18:45 Freq: Status: Active Protocol: Document 10/12/22 13:02 LRN (Rec: 10/12/22 13:48 LRN [id number]) Out-Patient Physical Therapy Visit Information Visit Information Visit Type Treatment Note Visit Start Time 13:02 Visit Stop Time 13:47 Total Visit Minutes 45 Visit Number Evaluation Information Evaluation Date 09/10/22 Precautions Precautions Hernia-R front mesh. PT-OP-B Current Condition Start: 09/06/22 18:45 Freq: Status: Active Protocol: Document 09/10/22 13:03 LRN (Rec: 09/10/22 19:20 LRN [id number]) Current Condition History of Current Condition Onset Date Few months ago Current Complaints Sonny foot stephanie feeling and feeling of socks on feet. History of Current Condition Few months ago went for a walk wearing his orthotics and hurt his L heel. He took it easy and 3 weeks later he started to get neuropathy, a feeling of sandiness and sock on L foot. Now the neuropathy has started in his R foot. Denies foot pain. States he stands a lot with a wide spread stance. States he feels hot/cold, tickling, feels like bunched sock in toes and the tingling as if feet have fallen asleep, comes and goes with standing. States he has weakness in his legs. Does Airdyne bike and yoga daily. 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 Future Testing and Treatments Planned 09/24/22: [employer] appt (Dr Emilia Hinton in ) 09/26/22: Accupuncture appt. Developmental History Developmental History Occasionally has had achilles tendonitis of L heel (pain on heel and outside of heel) and he would ice it. 10 yrs ago he was carrying his daughter, and she tried to throw herself onto the ground, causing him to quickly bend forward to keep from dropping her, since then he has had R thigh sensations (wet) and if he stands for excessive time his R thigh kang. When he worked, 16-18 hr days he had achy feet. Treatment Goals Patient/Caregiver Goals Pt goal is to not have pain, normal again. has 12 and 9 yo and wants to travel. No sensation, pain in heel - with way to take care. No pain with walking. Prior Functional Status Baseline Function- ADL's Independent Baseline Function- Mobility Independent Baseline Function- Work/School Building his deck, odd standing. Baseline Function- Recreation/Hobbies Worked in garden. Current Functional Impairments (Reported) Functional Limitations- ADL's Difficulty hauling his trash can up his driveway because the feet feel like he has been working all day. Functional Limitations- Mobility/Gait Weakness in legs; therefore not confident in gait. Clumsiness. Functional Limitations- Work/School Self employed. Functional Limitations- Recreation/ Does [employer]irdyne bike and yoga Hobbies daily. Personal Factors Other Personal Factors That May Effect Pt reports being very active Therapy/Recovery and is wanting to travel with his spouse and children ages 12 & 10. Back injury 10 yrs ago. Flattened arches requiring orthotics in shoes. PT-OP-C Subjective Start: 09/06/22 18:45 Freq: Status: Active Protocol: Document 10/12/22 13:02 LRN (Rec: 10/12/22 13:48 LRN [id number]) OP-PT Subjective Patient Comments Patient Comments Changes every day. Last session was too tired after both treatments. Over weekend was at [employer] tournament. Has gotten better progressively over the week. Today is better. Tingling in the thighs and and calfs ( ankles normal), and feet like it used to be. PT-OP-G Mobility & Gait Start: 09/06/22 18:45 Freq: Status: Active Protocol: Document 09/10/22 13:03 LRN (Rec: 09/10/22 19:20 LRN [id number]) OP Gait Assessment Gait Gait Assistance Required: Independent Able to Maintain Weight Bearing Status Yes During Gait Assistive Devices Assistive Device None Gait Deviations General Gait Pattern Flexed Trunk,Wide Based Gait Factors Limiting Gait Function Factors Limiting Gait Function Decreased Sensation,Decreased Strength,Pain Comments Gait Comments Pain in heels with heel strike . PT-OP-H Neuro Start: 09/06/22 18:45 Freq: Status: Active Protocol: Document 09/10/22 13:03 LRN (Rec: 09/10/22 19:20 LRN [id number]) Sensation Evaluation Gross Sensation Gross Sensation WNL,Left LE Impaired,Right LE Impaired Sensation Description Tingling,Pins & [place], Heaviness Comments Summary Comments Pt is able to feel light touch /firm pressure difference, and reports having normal sensation to hot/cold. Deep Tendon Reflex & Clonus Assessment Deep Tendon Reflex Bilateral Achilles Deep Tendon Reflex 2+ Normal PT-OP-J Posture/Palpation/Skin Start: 09/06/22 18:45 Freq: Status: Active Protocol: Document 09/14/22 13:04 LRN (Rec: 09/14/22 16:59 LRN [id number]) Palpation Assessment Location Medial Malleoli in supine Palpation Location Medial malleolus Palpation Details L leg is short/ R leg long. PT-OP-K Range of Motion Start: 09/06/22 18:45 Freq: Status: Active Protocol: Document 09/10/22 13:03 LRN (Rec: 09/10/22 19:20 LRN [id number]) Hip Goniometric Range of Motion Hip Right Passive Testing Position Supine Straight Leg Raise 105 Internal Rotation 15 External Rotation 70 Left Passive Testing Position Supine Straight Leg Raise 105 Internal Rotation 20 External Rotation 65 PT-OP-M Strength Start: 09/06/22 18:45 Freq: Status: Active Protocol: Document 09/18/22 13:03 LRN (Rec: 09/18/22 16:24 LRN [id number]) Trunk Strength Trunk Manual Muscle Testing Core Stabilization Pt has mild loss of core stability with MMT of LE's, especially with testing of R hip flexion (weak L trunk rot) . Hip Strength Hip Manual Muscle Testing Right Comments Generally 5/5 Left Extension (S1) 4 Good Adduction 3 Fair External Rotation 3+ Fair+ Comments Generally 5/5 except as indicated abovel PT-OP-Q Treatments Start: 09/06/22 18:45 Freq: Status: Active Protocol: Document 10/12/22 13:02 LRN (Rec: 10/12/22 13:48 LRN [id number]) Therapeutic Exercises Supine Exercises Trunk rot stretch Supine Exercise Name Trunk Rot stretch Side bilateral Reps/Minutes 10 SH x 6, each side DKTC stretch Supine Exercise Name DKTC Side bilateral Reps/Minutes 10 SH x 10 Lateral Hip stretch Supine Exercise Name Lateral hip stretch Side right Equipment Used 2x Reps/Minutes 4' Comments Extra time for review Piriformis stretch Supine Exercise Name Piriformis stretch Side right Reps/Minutes 1x Comments Followed by C/R stretch & active stretch. TA tightening Supine Exercise Name TA tightening w/Lumbar manual traction due to abdominal ms cramps w/o tract Reps/Minutes 2' Comments Modification in holding time throughout session to deter max tolerated hold Manual Therapy Treatment Soft Tissue Mobilization Piriformis stretch Body Location C/R R Piriformis (leg roll restricted on R), f/b active IR Mobilization Type Other Body Position Supine Comments 8' Manual Traction Lumbar Details Attempted intermittent Mechanical traction Body Position Hooklying Reps/Duration 13' Comments Unable to keep straps from sliding down trunk; therefore unable to provide appropriate traction and discontinued attempt. Extra time for use of MH with traction. PT-OP-T Assessment and Plan Start: 09/06/22 18:45 Freq: Status: Active Protocol: Document 10/12/22 13:02 LRN (Rec: 10/12/22 13:48 LRN [id number]) Physical Therapy Assessment Goals Three Impairment Heel pain with gait rated 2-3/ 10. Short Term Goal (STG) Improve hip rotational mobility (IR>ER) with lessening heel pain with gait. STG Duration 10/26/22 Longterm Goal (LTG) Pelvic symmetry and stability ex's with no heel pain when walking. 09/18/22: Pelvis symmetrical. Heel pain is in variable locations (inner and outer heel). LTG Duration 12/09/22 partially met goal 09/18/22. Two Impairment Neuropathy of feet Impairment Sensation: Stephanie and wearing a wrinkled sock feeling worse in ball of feet and 1-3 digits of the toes, plantar surface. Short Term Goal (STG) Pt will be educated in proper body mechanics. STG Duration 10/26/22 (09/18/22: MET GOAL) [place] Turner Goal (LTG) Normalize sensation in the feet bilaterally. 10/02/22: End of treatment decrease sandyfeeling to toes 1-3 bilaterally. LTG Duration 12/09/22 Intermittent progression 10/02/22 One Impairment Lacks appropriate self care HEP. Short Term Goal (STG) Pt will be educated in proper posturing and use of home modalities for pain/sensation management. STG Duration 10/26/22 (09/18/22: MET GOAL) Longterm Goal (LTG) Pt goal is to not have pain, normal again. has 12 and 9 yo and wants to travel. No sensation, pain in heel - with way to take care. 09/14/22: I/S in TA strengthening. LTG Duration 12/09/22 progressing Assessment Summary Assessment Pt presents with no significant change in his symptoms overall after having to stand during the weekend to watch his daughter's sports games. He demonstrates good aerobic endurance per 2 minute step test, without c/o increased numbness/tingling after exercise. Use of mechanical traction was not beneficial since the pt's body type made maintaining a traction impossible; therefore the pt will need to continue use of his inversion table for stretch and relaxation to his core ms. Physical Therapy Plan Frequency and Duration Frequency of Treatment 2x/Week Plan of Care Start Date 09/10/22 Plan of Care End Date 12/09/22 Next Visit Focus/Plan Next Note Type Treatment Note Next Visit Plan Hip IR (R>L) stretching. Manual: No STM on days due to accupuncturist request. STM of back and L hip>R hip. Continue lumbar traction due to + response or try use of MH /ES to decrease ms tension/ tone, and pt to continue use of tilt table at home. Ex's/HEP: Piriformis stretch and hip ER stretch, pelvic/ core stabilization. Sacral balancing when needed.
--- NOTE | 2022-10-18 13:39 | PT.OTN ---
Current Diagnoses Polyneuropathy, unspecified (10/18/22) Radiculopathy, site unspecified (10/18/22) Muscle weakness (generalized) (10/18/22) Abnormal posture (10/18/22) Other reduced mobility (10/18/22) Physical Therapy Treatment Note PT-OP-A Visit Information Start: 09/06/22 18:45 Freq: Status: Active Protocol: Document 10/18/22 09:08 LRN (Rec: 10/18/22 09:51 LRN [id number]) Out-Patient Physical Therapy Visit Information Visit Information Visit Type Treatment Note Visit Start Time 09:08 Visit Stop Time 09:54 Total Visit Minutes 46 Visit Number Evaluation Information Evaluation Date 09/10/22 Precautions Precautions Hernia-R front mesh. PT-OP-B Current Condition Start: 09/06/22 18:45 Freq: Status: Active Protocol: Document 09/10/22 13:03 LRN (Rec: 09/10/22 19:20 LRN [id number]) Current Condition History of Current Condition Onset Date Few months ago Current Complaints Sonny foot stephanie feeling and feeling of socks on feet. History of Current Condition Few months ago went for a walk wearing his orthotics and hurt his L heel. He took it easy and 3 weeks later he started to get neuropathy, a feeling of sandiness and sock on L foot. Now the neuropathy has started in his R foot. Denies foot pain. States he stands a lot with a wide spread stance. States he feels hot/cold, tickling, feels like bunched sock in toes and the tingling as if feet have fallen asleep, comes and goes with standing. States he has weakness in his legs. Does Airdyne bike and yoga daily. 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 Future Testing and Treatments Planned 09/24/22: Business Continuity Manager appt (Dr Emilia Hinton in ) 09/26/22: Accupuncture appt. Developmental History Developmental History Occasionally has had achilles tendonitis of L heel (pain on heel and outside of heel) and he would ice it. 10 yrs ago he was carrying his daughter, and she tried to throw herself onto the ground, causing him to quickly bend forward to keep from dropping her, since then he has had R thigh sensations (wet) and if he stands for excessive time his R thigh kang. When he worked, 16-18 hr days he had achy feet. Treatment Goals Patient/Caregiver Goals Pt goal is to not have pain, normal again. has 12 and 10 yo and wants to travel. No sensation, pain in heel - with way to take care. No pain with walking. Prior Functional Status Baseline Function- ADL's Independent Baseline Function- Mobility Independent Baseline Function- Work/School Building his deck, odd standing. Baseline Function- Recreation/Hobbies Worked in garden. Current Functional Impairments (Reported) Functional Limitations- ADL's Difficulty hauling his trash can up his driveway because the feet feel like he has been working all day. Functional Limitations- Mobility/Gait Weakness in legs; therefore not confident in gait. Clumsiness. Functional Limitations- Work/School Self employed. Functional Limitations- Recreation/ Does Airdyne bike and yoga Hobbies daily. Personal Factors Other Personal Factors That May Effect Pt reports being very active Therapy/Recovery and is wanting to travel with his spouse and children ages 12 & 10. Back injury 10 yrs ago. Flattened arches requiring orthotics in shoes. PT-OP-C Subjective Start: 09/06/22 18:45 Freq: Status: Active Protocol: Document 10/18/22 09:08 LRN (Rec: 10/18/22 09:51 LRN [id number]) OP-PT Subjective Patient Comments Patient Comments States 3 days ago he had 2 separate pops in he back and now he has less tingling in the R leg except for the toes. L leg feels the same. Yesterday and the day before had to shovel a little and used unmanned equipment operator. PT-OP-G Mobility & Gait Start: 09/06/22 18:45 Freq: Status: Active Protocol: Document 09/10/22 13:03 LRN (Rec: 09/10/22 19:20 LRN [id number]) OP Gait Assessment Gait Gait Assistance Required: Independent Able to Maintain Weight Bearing Status Yes During Gait Assistive Devices Assistive Device None Gait Deviations General Gait Pattern Flexed Trunk,Wide Based Gait Factors Limiting Gait Function Factors Limiting Gait Function Decreased Sensation,Decreased Strength,Pain Comments Gait Comments Pain in heels with heel strike . PT-OP-H Neuro Start: 09/06/22 18:45 Freq: Status: Active Protocol: Document 09/10/22 13:03 LRN (Rec: 09/10/22 19:20 LRN [id number]) Sensation Evaluation Gross Sensation Gross Sensation WNL,Left LE Impaired,Right LE Impaired Sensation Description Tingling,Pins & Sibley, Heaviness Comments Summary Comments Pt is able to feel light touch /firm pressure difference, and reports having normal sensation to hot/cold. Deep Tendon Reflex & Clonus Assessment Deep Tendon Reflex Bilateral Achilles Deep Tendon Reflex 2+ Normal PT-OP-J Posture/Palpation/Skin Start: 09/06/22 18:45 Freq: Status: Active Protocol: Document 09/14/22 13:04 LRN (Rec: 09/14/22 16:59 LRN [id number]) Palpation Assessment Location Medial Malleoli in supine Palpation Location Medial malleolus Palpation Details L leg is short/ R leg long. PT-OP-K Range of Motion Start: 09/06/22 18:45 Freq: Status: Active Protocol: Document 09/10/22 13:03 LRN (Rec: 09/10/22 19:20 LRN [id number]) Hip Goniometric Range of Motion Hip Right Passive Testing Position Supine Straight Leg Raise 105 Internal Rotation 15 External Rotation 70 Left Passive Testing Position Supine Straight Leg Raise 105 Internal Rotation 20 External Rotation 65 PT-OP-M Strength Start: 09/06/22 18:45 Freq: Status: Active Protocol: Document 09/18/22 13:03 LRN (Rec: 09/18/22 16:24 LRN [id number]) Trunk Strength Trunk Manual Muscle Testing Core Stabilization Pt has mild loss of core stability with MMT of LE's, especially with testing of R hip flexion (weak L trunk rot) . Hip Strength Hip Manual Muscle Testing Right Comments Generally 5/5 Left Extension (S1) 4 Good Adduction 3 Fair External Rotation 3+ Fair+ Comments Generally 5/5 except as indicated abovel PT-OP-Q Treatments Start: 09/06/22 18:45 Freq: Status: Active Protocol: Document 10/18/22 09:08 LRN (Rec: 10/18/22 09:51 LRN [id number]) Therapeutic Exercises Supine Exercises Fig 4 stretch Supine Exercise Name Fig 4 stretch Side left Reps/Minutes 4' Comments Extra time to determine max tolerated stretch. Pillow under L thigh needed Hip IR stretch Supine Exercise Name W-sit on R side. Side right Reps/Minutes 5' Trunk rot stretch Supine Exercise Name Trunk Rot stretch Side bilateral Reps/Minutes 10 SH x 6, each side DKTC stretch Supine Exercise Name DKTC Side bilateral Reps/Minutes 10 SH x 10 Lateral Hip stretch Supine Exercise Name Lateral hip stretch Side right Equipment Used 2x Reps/Minutes 4' Comments Extra time for review Piriformis stretch Supine Exercise Name Piriformis stretch Side right Reps/Minutes 1x Comments Followed by C/R stretch & active stretch. Manual Therapy Treatment Soft Tissue Mobilization Piriformis stretch Body Location C/R R Piriformis (leg roll restricted on R), f/b active IR Mobilization Type Other Body Position Supine Comments 8' PT-OP-R Modalities Start: 09/06/22 18:45 Freq: Status: Active Protocol: Document 10/18/22 09:08 LRN (Rec: 10/18/22 09:51 LRN [id number]) Electric Stimulation Electric Stimulation Interferential Current (IFC) Body Location [L4-L5 Duration (Minutes) 10 Intensity 23 Target/Sweep Sweep Patient Position Hooklying Combined With Heat/Cold Hot Pack PT-OP-T Assessment and Plan Start: 09/06/22 18:45 Freq: Status: Active Protocol: Document 10/18/22 09:08 LRN (Rec: 10/18/22 09:51 LRN [id number]) Physical Therapy Assessment Goals Three Impairment Heel pain with gait rated 2-3/ 10. Short Term Goal (STG) Improve hip rotational mobility (IR>ER) with lessening heel pain with gait. STG Duration 10/26/22 Intermediate Goal (LTG) Pelvic symmetry and stability ex's with no heel pain when walking. 09/18/22: Pelvis symmetrical. Heel pain is in variable locations (inner and outer heel). LTG Duration 12/09/22 partially met goal 09/18/22. Two Impairment Neuropathy of feet Impairment Sensation: Stephanie and wearing a wrinkled sock feeling worse in ball of feet and 1-3 digits of the toes, plantar surface. Short Term Goal (STG) Pt will be educated in proper body mechanics. STG Duration 10/26/22 (09/18/22: MET GOAL) Asbestos Worker Helper Goal (LTG) Normalize sensation in the feet bilaterally. 10/02/22: End of treatment decrease sandyfeeling to toes 1-3 bilaterally. 10/18/22: RLE except toes has reduced stephanie feeling, less tingling. LTG Duration 12/09/22 Intermittent progression 10/18/22 One Impairment Lacks appropriate self care HEP. Short Term Goal (STG) Pt will be educated in proper posturing and use of home modalities for pain/sensation management. STG Duration 10/26/22 (09/18/22: MET GOAL) Asbestos Worker Helper Goal (LTG) Pt goal is to not have pain, normal again. has 12 and 9 yo and wants to travel. No sensation, pain in heel - with way to take care. 09/14/22: I/S in TA strengthening. LTG Duration 12/09/22 progressing Assessment Summary Assessment Pt continues to self mobilize with most recent resulting in lessening of numbness/tingling in RLE & increase R LBP as expected; otherwise pt had been making slow progress. Hip R hip IR mobility appears to be improved. Manual therapy to minimize neural changes Further testing would be beneficial to determine extent of neural involvement of low back. Physical Therapy Plan Frequency and Duration Frequency of Treatment 2x/Week Plan of Care Start Date 09/10/22 Plan of Care End Date 12/09/22 Other Referrals/Consults Referrals/Consults Recommended Recommend MRI of L/S for possible neural invovlement. Next Visit Focus/Plan Next Note Type Treatment Note Next Visit Plan Next: Assess hip ROM, response to issued Fig 4 and Iliopsoas stretch, and MH/IFES on leg sensation and ms tension. Hip IR (R>L) stretching. Manual: No STM on days having accupuncture at accupuncturist's request. STM of back and L hip>R hip. Lumbar traction and/or MH/ES to decrease ms tension/tone if + response. Pt to continue use of tilt table at home. Ex's/HEP: R Piriformis stretch and L hip ER stretch, pelvic/core stabilization. Sacral balancing when needed.
--- NOTE | 2022-10-30 13:33 | PT.OTN ---
Current Diagnoses Polyneuropathy, unspecified (10/30/22) Radiculopathy, site unspecified (10/30/22) Muscle weakness (generalized) (10/30/22) Abnormal posture (10/30/22) Other reduced mobility (10/30/22) Physical Therapy Treatment Note PT-OP-A Visit Information Start: 09/06/22 18:45 Freq: Status: Active Protocol: Document 10/30/22 10:44 LRN (Rec: 10/30/22 11:29 LRN [id number]) Out-Patient Physical Therapy Visit Information Visit Information Visit Type Treatment Note Visit Start Time 10:44 Visit Stop Time 11:25 Total Visit Minutes 41 Evaluation Information Evaluation Date 09/10/22 Precautions Precautions Hernia-R front mesh. PT-OP-B Current Condition Start: 09/06/22 18:45 Freq: Status: Active Protocol: Document 09/10/22 13:03 LRN (Rec: 09/10/22 19:20 LRN [id number]) Current Condition History of Current Condition Onset Date Few months ago Current Complaints Sonny foot lyubov feeling and feeling of socks on feet. History of Current Condition Few months ago went for a walk wearing his orthotics and hurt his L heel. He took it easy and 3 weeks later he started to get neuropathy, a feeling of sandiness and sock on L foot. Now the neuropathy has started in his R foot. Denies foot pain. States he stands a lot with a wide spread stance. States he feels hot/cold, tickling, feels like bunched sock in toes and the tingling as if feet have fallen asleep, comes and goes with standing. States he has weakness in his legs. Does Airdyne bike and yoga daily. 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 Future Testing and Treatments Planned 09/24/22: Ocean Export Account Manager appt (Dr Emilia Hinton in ) 09/26/22: Accupuncture appt. Developmental History Developmental History Occasionally has had achilles tendonitis of L heel (pain on heel and outside of heel) and he would ice it. 10 yrs ago he was carrying his daughter, and she tried to throw herself onto the ground, causing him to quickly bend forward to keep from dropping her, since then he has had R thigh sensations (wet) and if he stands for excessive time his R thigh kang. When he worked, 16-18 hr days he had achy feet. Treatment Goals Patient/Caregiver Goals Pt goal is to not have pain, normal again. has 12 and 9 yo and wants to travel. No sensation, pain in heel - with way to take care. No pain with walking. Prior Functional Status Baseline Function- ADL's Independent Baseline Function- Mobility Independent Baseline Function- Work/School Building his deck, odd standing. Baseline Function- Recreation/Hobbies Worked in garden. Current Functional Impairments (Reported) Functional Limitations- ADL's Difficulty hauling his trash can up his driveway because the feet feel like he has been working all day. Functional Limitations- Mobility/Gait Weakness in legs; therefore not confident in gait. Clumsiness. Functional Limitations- Work/School Self employed. Functional Limitations- Recreation/ Does Airdyne bike and yoga Hobbies daily. Personal Factors Other Personal Factors That May Effect Pt reports being very active Therapy/Recovery and is wanting to travel with his spouse and children ages 12 & 10. Back injury 10 yrs ago. Flattened arches requiring orthotics in shoes. PT-OP-C Subjective Start: 09/06/22 18:45 Freq: Status: Active Protocol: Document 10/30/22 10:44 LRN (Rec: 10/30/22 11:29 LRN [id number]) OP-PT Subjective Patient Comments Patient Comments Today is good day. Last night doing yoga, had a new pop in lower area and pop in sternum without pain. Legs feeling like legs are lower in volume , and legs don't feel as heavy and has more control over legs. 40-50% better. Yesterday was not as good as today. Sensation in feet is 40-50% better. Heels feel normal, walking around almost feels normal. Dr. Rc sotelot in December, MRI is tomorrow . PT-OP-G Mobility & Gait Start: 09/06/22 18:45 Freq: Status: Active Protocol: Document 09/10/22 13:03 LRN (Rec: 09/10/22 19:20 LRN [id number]) OP Gait Assessment Gait Gait Assistance Required: Independent Able to Maintain Weight Bearing Status Yes During Gait Assistive Devices Assistive Device None Gait Deviations General Gait Pattern Flexed Trunk,Wide Based Gait Factors Limiting Gait Function Factors Limiting Gait Function Decreased Sensation,Decreased Strength,Pain Comments Gait Comments Pain in heels with heel strike . PT-OP-H Neuro Start: 09/06/22 18:45 Freq: Status: Active Protocol: Document 09/10/22 13:03 LRN (Rec: 09/10/22 19:20 LRN [id number]) Sensation Evaluation Gross Sensation Gross Sensation WNL,Left LE Impaired,Right LE Impaired Sensation Description Tingling,Pins & Arrey, Heaviness Comments Summary Comments Pt is able to feel light touch /firm pressure difference, and reports having normal sensation to hot/cold. Deep Tendon Reflex & Clonus Assessment Deep Tendon Reflex Bilateral Achilles Deep Tendon Reflex 2+ Normal PT-OP-J Posture/Palpation/Skin Start: 09/06/22 18:45 Freq: Status: Active Protocol: Document 09/14/22 13:04 LRN (Rec: 09/14/22 16:59 LRN [id number]) Palpation Assessment Location Medial Malleoli in supine Palpation Location Medial malleolus Palpation Details L leg is short/ R leg long. PT-OP-K Range of Motion Start: 09/06/22 18:45 Freq: Status: Active Protocol: Document 10/30/22 10:44 LRN (Rec: 10/30/22 11:29 LRN [id number]) Hip Goniometric Range of Motion Hip Right Passive Testing Position Supine Straight Leg Raise 95 Internal Rotation 15 External Rotation 75 Left Passive Testing Position Supine Straight Leg Raise 85 Internal Rotation 20 External Rotation 70 PT-OP-M Strength Start: 09/06/22 18:45 Freq: Status: Active Protocol: Document 09/18/22 13:03 LRN (Rec: 09/18/22 16:24 LRN [id number]) Trunk Strength Trunk Manual Muscle Testing Core Stabilization Pt has mild loss of core stability with MMT of LE's, especially with testing of R hip flexion (weak L trunk rot) . Hip Strength Hip Manual Muscle Testing Right Comments Generally 5/5 Left Extension (S1) 4 Good Adduction 3 Fair External Rotation 3+ Fair+ Comments Generally 5/5 except as indicated abovel PT-OP-Q Treatments Start: 09/06/22 18:45 Freq: Status: Active Protocol: Document 10/30/22 10:44 LRN (Rec: 10/30/22 11:29 LRN [id number]) Therapeutic Exercises Supine Exercises Fig 4 stretch Supine Exercise Name Fig 4 stretch Side left Reps/Minutes 6' Comments Extra time to determine max tolerated stretch. Pillow under L thigh needed Hip IR stretch Supine Exercise Name W-sit on R side. Side right Reps/Minutes 6' Trunk rot stretch Supine Exercise Name Trunk Rot stretch-knees to R Side right Reps/Minutes 10 SH x 6 DKTC stretch Supine Exercise Name DKTC Side bilateral Reps/Minutes 10 SH x 10 Lateral Hip stretch Supine Exercise Name Lateral hip stretch Side right Equipment Used 2x Reps/Minutes 4' Comments Extra time for review Piriformis stretch Supine Exercise Name Piriformis stretch Side right Reps/Minutes 2x Comments Followed by C/R stretch & active stretch. Manual Therapy Treatment Soft Tissue Mobilization L Low back Body Location L Lumbar paraspinals/QL Mobilization Type Strumming,Sustained Pressure Body Position Prone Comments Pillows under feet R QL Body Location R QL Mobilization Type Strumming,Sustained Pressure Body Position Prone Comments Pillows under feet PT-OP-R Modalities Start: 09/06/22 18:45 Freq: Status: Active Protocol: Document 10/18/22 09:08 LRN (Rec: 10/18/22 09:51 LRN [id number]) Electric Stimulation Electric Stimulation Interferential Current (IFC) Body Location [L4-L5 Duration (Minutes) 10 Intensity 23 Target/Sweep Sweep Patient Position Hooklying Combined With Heat/Cold Hot Pack PT-OP-T Assessment and Plan Start: 09/06/22 18:45 Freq: Status: Active Protocol: Document 10/30/22 10:44 LRN (Rec: 10/30/22 11:29 LRN [id number]) Physical Therapy Assessment Goals Three Impairment Heel pain with gait rated 2-3/ 10. Short Term Goal (STG) Improve hip rotational mobility (IR>ER) with lessening heel pain with gait. STG Duration 10/26/22 Wiring Technician Goal (LTG) Pelvic symmetry and stability ex's with no heel pain when walking. 09/18/22: Pelvis symmetrical. Heel pain is in variable locations (inner and outer heel). LTG Duration 12/09/22 partially met goal 09/18/22. Two Impairment Neuropathy of feet Impairment Sensation: Lyubov and wearing a wrinkled sock feeling worse in ball of feet and 1-3 digits of the toes, plantar surface. Short Term Goal (STG) Pt will be educated in proper body mechanics. STG Duration 10/26/22 (09/18/22: MET GOAL) Skilled Nursing Goal (LTG) Normalize sensation in the feet bilaterally. 10/02/22: End of treatment decrease sandyfeeling to toes 1-3 bilaterally. 10/18/22: RLE except toes has reduced lyubov feeling, less tingling. LTG Duration 12/09/22 Intermittent progression 10/18/22 One Impairment Lacks appropriate self care HEP. Short Term Goal (STG) Pt will be educated in proper posturing and use of home modalities for pain/sensation management. STG Duration 10/26/22 (09/18/22: MET GOAL) Skilled Nursing Goal (LTG) Pt goal is to not have pain, normal again. has 12 and 9 yo and wants to travel. No sensation, pain in heel - with way to take care. 09/14/22: I/S in TA strengthening. LTG Duration 12/09/22 progressing Assessment Summary Assessment Pt appears to have been consistent with his HEP of new Fig 4 stretch. Hip ER rot ROM difference remains 5 deg's , but improved mobility bilaterally. Hip IR mobility remains same. Hamstring mobility is decreased from initial measurments, but mostly normal, L worse than R. Use of MH/IFES in clinic appeared to have made no significant difference to patient after last session. His R paraspinals remained tighter than L after STM and L lateral lower trunk was tender with less tension noted . He did appear to have greater ease of movement in the trunk after treatment. Pt LE's still felt light after treatment. Physical Therapy Plan Frequency and Duration Frequency of Treatment 2x/Week Plan of Care Start Date 09/10/22 Plan of Care End Date 12/09/22 Next Visit Focus/Plan Next Note Type Treatment Note Next Visit Plan Check MRI Results. Cont R Hip IR/L hip ER (fig 4) stretching. Manual: No STM on days having accupuncture at accupuncturist's request. STM of back, feet, and L hip>R hip. Lumbar traction to decrease ms tension/tone if + response. Pt to continue use of tilt table at home. Ex's/HEP: Pelvic/core stabilization. Sacral balancing when needed. Try upright ex bike for LE circulation.
--- NOTE | 2022-11-01 16:28 | PT.OTN ---
Current Diagnoses Polyneuropathy, unspecified (11/01/22) Radiculopathy, site unspecified (11/01/22) Muscle weakness (generalized) (11/01/22) Abnormal posture (11/01/22) Other reduced mobility (11/01/22) Physical Therapy Treatment Note PT-OP-A Visit Information Start: 09/06/22 18:45 Freq: Status: Active Protocol: Document 11/01/22 11:23 LRN (Rec: 11/01/22 12:16 LRN [id number]) Out-Patient Physical Therapy Visit Information Visit Information Visit Type Progress Note Visit Start Time : Visit Stop Time 12:11 Total Visit Minutes 48 Visit Number Evaluation Information Evaluation Date 09/10/22 Precautions Precautions Hernia-R front mesh. PT-OP-B Current Condition Start: 09/06/22 18:45 Freq: Status: Active Protocol: Document 09/10/22 13:03 LRN (Rec: 09/10/22 19:20 LRN [id number]) Current Condition History of Current Condition Onset Date Few months ago Current Complaints Sonny foot stephanie feeling and feeling of socks on feet. History of Current Condition Few months ago went for a walk wearing his orthotics and hurt his L heel. He took it easy and 3 weeks later he started to get neuropathy, a feeling of sandiness and sock on L foot. Now the neuropathy has started in his R foot. Denies foot pain. States he stands a lot with a wide spread stance. States he feels hot/cold, tickling, feels like bunched sock in toes and the tingling as if feet have fallen asleep, comes and goes with standing. States he has weakness in his legs. Does [employer] bike and yoga daily. 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 Future Testing and Treatments Planned 09/24/22: Insurance Claim Auditor appt (Dr Emilia Hinton in ) 09/26/22: Accupuncture appt. Developmental History Developmental History Occasionally has had achilles tendonitis of L heel (pain on heel and outside of heel) and he would ice it. 10 yrs ago he was carrying his daughter, and she tried to throw herself onto the ground, causing him to quickly bend forward to keep from dropping her, since then he has had R thigh sensations (wet) and if he stands for excessive time his R thigh kang. When he worked, 16-18 hr days he had achy feet. Treatment Goals Patient/Caregiver Goals Pt goal is to not have pain, normal again. has 12 and 9 yo and wants to travel. No sensation, pain in heel - with way to take care. No pain with walking. Prior Functional Status Baseline Function- ADL's Independent Baseline Function- Mobility Independent Baseline Function- Work/School Building his deck, odd standing. Baseline Function- Recreation/Hobbies Worked in garden. Current Functional Impairments (Reported) Functional Limitations- ADL's Difficulty hauling his trash can up his driveway because the feet feel like he has been working all day. Functional Limitations- Mobility/Gait Weakness in legs; therefore not confident in gait. Clumsiness. Functional Limitations- Work/School Self employed. Functional Limitations- Recreation/ Does [employer] bike and yoga Hobbies daily. Personal Factors Other Personal Factors That May Effect Pt reports being very active Therapy/Recovery and is wanting to travel with his spouse and children ages 12 & 10. Back injury 10 yrs ago. Flattened arches requiring orthotics in shoes. PT-OP-C Subjective Start: 09/06/22 18:45 Freq: Status: Active Protocol: Document 11/01/22 11:23 LRN (Rec: 11/01/22 12:16 LRN [id number]) OP-PT Subjective Patient Comments Patient Comments States yesterday was not a good day. Legs felt weak and tingly. Today feels like he did on Tues. Left back, Glut and hamstring is sore. L foot felt like garbage. Today R foot 25% tingling, L side is 50-60% and more tingling in the bottom of the forefront of the foot, and the heel has 10 % tingling. Weakness in legs is lesser than yesterday. Woke with less tingling in feet. MRI taken yesterday, doesn't know the results. Has appt w/Dr. Tatum 01/12/23. PT-OP-G Mobility & Gait Start: 09/06/22 18:45 Freq: Status: Active Protocol: Document 09/10/22 13:03 LRN (Rec: 09/10/22 19:20 LRN [id number]) OP Gait Assessment Gait Gait Assistance Required: Independent Able to Maintain Weight Bearing Status Yes During Gait Assistive Devices Assistive Device None Gait Deviations General Gait Pattern Flexed Trunk,Wide Based Gait Factors Limiting Gait Function Factors Limiting Gait Function Decreased Sensation,Decreased Strength,Pain Comments Gait Comments Pain in heels with heel strike . PT-OP-H Neuro Start: 09/06/22 18:45 Freq: Status: Active Protocol: Document 09/10/22 13:03 LRN (Rec: 09/10/22 19:20 LRN [id number]) Sensation Evaluation Gross Sensation Gross Sensation WNL,Left LE Impaired,Right LE Impaired Sensation Description Tingling,Pins & [place], Heaviness Comments Summary Comments Pt is able to feel light touch /firm pressure difference, and reports having normal sensation to hot/cold. Deep Tendon Reflex & Clonus Assessment Deep Tendon Reflex Bilateral Achilles Deep Tendon Reflex 2+ Normal PT-OP-J Posture/Palpation/Skin Start: 09/06/22 18:45 Freq: Status: Active Protocol: Document 09/14/22 13:04 LRN (Rec: 09/14/22 16:59 LRN [id number]) Palpation Assessment Location Medial Malleoli in supine Palpation Location Medial malleolus Palpation Details L leg is short/ R leg long. PT-OP-K Range of Motion Start: 09/06/22 18:45 Freq: Status: Active Protocol: Document 10/30/22 10:44 LRN (Rec: 10/30/22 11:29 LRN [id number]) Hip Goniometric Range of Motion Hip Right Passive Testing Position Supine Straight Leg Raise 95 Internal Rotation 15 External Rotation 75 Left Passive Testing Position Supine Straight Leg Raise 85 Internal Rotation 20 External Rotation 70 PT-OP-M Strength Start: 09/06/22 18:45 Freq: Status: Active Protocol: Document 09/18/22 13:03 LRN (Rec: 09/18/22 16:24 LRN [id number]) Trunk Strength Trunk Manual Muscle Testing Core Stabilization Pt has mild loss of core stability with MMT of LE's, especially with testing of R hip flexion (weak L trunk rot) . Hip Strength Hip Manual Muscle Testing Right Comments Generally 5/5 Left Extension (S1) 4 Good Adduction 3 Fair External Rotation 3+ Fair+ Comments Generally 5/5 except as indicated abovel PT-OP-Q Treatments Start: 09/06/22 18:45 Freq: Status: Active Protocol: Document 11/01/22 11:23 LRN (Rec: 11/01/22 12:16 LRN [id number]) Therapeutic Exercises Supine Exercises Fig 4 stretch Supine Exercise Name Fig 4 stretch Side left Reps/Minutes 6' Comments Extra time to determine max tolerated stretch. Pillow under L thigh needed Hip IR stretch Supine Exercise Name W-sit on R side. Side right Reps/Minutes 6' Trunk rot stretch Supine Exercise Name Trunk Rot stretch-knees to R Side right Reps/Minutes 10 SH x 6 Lateral Hip stretch Supine Exercise Name Lateral hip stretch Side right Equipment Used 2x Reps/Minutes 4' Comments Extra time for review Piriformis stretch Supine Exercise Name Piriformis stretch Side right Reps/Minutes 2x Comments Followed by C/R stretch & active stretch. Manual Therapy Treatment Soft Tissue Mobilization Sonny LE's Body Location Sonny Gluteal muscles, TFL, IT Band, Gastroc/Soleus complex Mobilization Type Instrument Assisted,Strumming Intensity/Depth Superficial > Moderate Body Position Sidelying Comments Pt sensitive and tender in all areas. Manual Traction LE axial traction Details Bilateral Axial LE traction Body Position Supine Comments No notable stretch felt on L side. Lumbar Details Manual lumbar traction Body Position Hooklying Reps/Duration 8' Comments Unable to obtain a lumbar traction that was comfortable on the traction location (at knees) with use of belt. PT-OP-R Modalities Start: 09/06/22 18:45 Freq: Status: Active Protocol: Document 10/18/22 09:08 LRN (Rec: 10/18/22 09:51 LRN [id number]) Electric Stimulation Electric Stimulation Interferential Current (IFC) Body Location [L4-L5 Duration (Minutes) 10 Intensity 23 Target/Sweep Sweep Patient Position Hooklying Combined With Heat/Cold Hot Pack PT-OP-T Assessment and Plan Start: 09/06/22 18:45 Freq: Status: Active Protocol: Document 11/01/22 11:23 LRN (Rec: 11/01/22 12:16 LRN [id number]) Physical Therapy Assessment Rehab Potential Rehabilitation Potential Good Evaluation Complexity Number of Personal Factors/Comorbidities 3 or More Number of Body Systems Impaired 4 or More Clinical Presentation at Evaluation Evolving Impairments Impairments Activity Tolerance,Gait,Pain, Posture,Sensation Goals Three Impairment Heel pain with gait rated 2-3/ 10. Short Term Goal (STG) Improve hip rotational mobility (IR>ER) with lessening heel pain with gait. STG Duration 10/26/22 Nursing Home Goal (LTG) Pelvic symmetry and stability ex's with no heel pain when walking. 09/18/22: Pelvis symmetrical. Heel pain is in variable locations (inner and outer heel). LTG Duration 12/09/22 partially met goal 09/18/22. Two Impairment Neuropathy of feet Impairment Sensation: Stephanie and wearing a wrinkled sock feeling worse in ball of feet and 1-3 digits of the toes, plantar surface. Short Term Goal (STG) Pt will be educated in proper body mechanics. STG Duration 10/26/22 (09/18/22: MET GOAL) Nursing Home Goal (LTG) Normalize sensation in the feet bilaterally. 10/02/22: End of treatment decrease sandyfeeling to toes 1-3 bilaterally. 10/18/22: RLE except toes has reduced stephanie feeling, less tingling. LTG Duration 12/09/22 Intermittent progression 10/18/22 One Impairment Lacks appropriate self care HEP. Short Term Goal (STG) Pt will be educated in proper posturing and use of home modalities for pain/sensation management. STG Duration 10/26/22 (09/18/22: MET GOAL) Nursing Home Goal (LTG) Pt goal is to not have pain, normal again. has 12 and 9 yo and wants to travel. No sensation, pain in heel - with way to take care. 09/14/22: I/S in TA strengthening. 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 The pt has made intermittent progress and has lately been variable in his symptoms of lessening of heaviness and tingling in the feet. Pt has c/o of LEFT LE being worse in tingling, and in tightness in lower leg. I have not able to perform a comfortable manual lumbar traction in clinic due to pressure at traction area at knees and poor holding of supports with mechanical traction; therefore after many adjustments and attempts manual and mechanical traction was discontinued. Lumbar traction through LE axial traction helped improve the R side, but had no effect on the L side; therefore at end of treatment the pt felt lop- sided, and in standing appeared to be weightbearing more through the R LE (L trunk higher than R). Decreasing tension of the lumbar spine has been difficulty and slow to progress. He appears to have much soft tissue dysfunction of the LE's hindering his progress. The pt will benefit from further therapy to help reduce his soft tissue dysfunction, improve mobility (hip IR) and stability of his core to minimize stress at the lumbar spine and worsening of his DDD symptoms, as well as maximize his activity tolerance and gait function. Physical Therapy Plan Frequency and Duration Frequency of Treatment 2x/Week Plan of Care Start Date 09/10/22 Plan of Care End Date 12/09/22 Therapeutic Interventions Therapeutic Interventions Gait Training,Home Exercise Program,Joint Mobilizations, Manual Therapy,Neuromuscular Re-education,Patient/Caregiver Education,Self-Care/Home Management,Soft Tissue Mobilization,Taping, Therapeutic Exercises Modalities Cold Pack/Ice Massage,Hot Packs,Ultrasound Next Visit Focus/Plan Next Note Type Treatment Note Next Visit Plan Assess Trunk AROM, Try upright ex bike for LE circulation. Cont R Hip IR/L hip ER (fig 4) stretching. Manual: No STM on days having accupuncture at accupuncturist's request. STM of back, feet, and L hip>R hip. Pt to continue use of tilt table at home. Ex's/HEP: Pelvic/core stabilization. Sacral balancing when needed.
--- NOTE | 2022-11-05 14:19 | PT.OTN ---
Current Diagnoses Polyneuropathy, unspecified (11/05/22) Radiculopathy, site unspecified (11/05/22) Muscle weakness (generalized) (11/05/22) Abnormal posture (11/05/22) Other reduced mobility (11/05/22) Physical Therapy Treatment Note PT-OP-A Visit Information Start: 09/06/22 18:45 Freq: Status: Active Protocol: Document 11/05/22 13:03 LRN (Rec: 11/05/22 13:54 LRN [id number]) Out-Patient Physical Therapy Visit Information Visit Information Visit Type Treatment Note Visit Start Time 13:03 Visit Stop Time 13:51 Total Visit Minutes 48 Visit Number Evaluation Information Evaluation Date 09/10/22 Precautions Precautions Inguinal Hernia-R front mesh. PT-OP-B Current Condition Start: 09/06/22 18:45 Freq: Status: Active Protocol: Document 09/10/22 13:03 LRN (Rec: 09/10/22 19:20 LRN [id number]) Current Condition History of Current Condition Onset Date Few months ago Current Complaints Sonny foot stephanie feeling and feeling of socks on feet. History of Current Condition Few months ago went for a walk wearing his orthotics and hurt his L heel. He took it easy and 3 weeks later he started to get neuropathy, a feeling of sandiness and sock on L foot. Now the neuropathy has started in his R foot. Denies foot pain. States he stands a lot with a wide spread stance. States he feels hot/cold, tickling, feels like bunched sock in toes and the tingling as if feet have fallen asleep, comes and goes with standing. States he has weakness in his legs. Does [employer] bike and yoga daily. 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 Future Testing and Treatments Planned 09/24/22: Print Developer appt (Dr Emilia Hinton in ) 09/26/22: Accupuncture appt. Developmental History Developmental History Occasionally has had achilles tendonitis of L heel (pain on heel and outside of heel) and he would ice it. 10 yrs ago he was carrying his daughter, and she tried to throw herself onto the ground, causing him to quickly bend forward to keep from dropping her, since then he has had R thigh sensations (wet) and if he stands for excessive time his R thigh kang. When he worked, 16-18 hr days he had achy feet. Treatment Goals Patient/Caregiver Goals Pt goal is to not have pain, normal again. has 12 and 9 yo and wants to travel. No sensation, pain in heel - with way to take care. No pain with walking. Prior Functional Status Baseline Function- ADL's Independent Baseline Function- Mobility Independent Baseline Function- Work/School Building his deck, odd standing. Baseline Function- Recreation/Hobbies Worked in garden. Current Functional Impairments (Reported) Functional Limitations- ADL's Difficulty hauling his trash can up his driveway because the feet feel like he has been working all day. Functional Limitations- Mobility/Gait Weakness in legs; therefore not confident in gait. Clumsiness. Functional Limitations- Work/School Self employed. Functional Limitations- Recreation/ Does [employer] bike and yoga Hobbies daily. Personal Factors Other Personal Factors That May Effect Pt reports being very active Therapy/Recovery and is wanting to travel with his spouse and children ages 12 & 10. Back injury 10 yrs ago. Flattened arches requiring orthotics in shoes. PT-OP-C Subjective Start: 09/06/22 18:45 Freq: Status: Active Protocol: Document 11/05/22 13:03 LRN (Rec: 11/05/22 13:54 LRN [id number]) OP-PT Subjective Patient Comments Patient Comments Seeing electronic data interchange specialist in 2 days. Had massage therapy 2 days ago and was exhausted, had cupping done. Feels better body-choudhury. Has light tingling of the inside of thigh and lower leg & feet. Legs feel weak, but doesn't think they are weak in strength. Reinjured L shoulder anchoring DA basketball hoop. PT-OP-G Mobility & Gait Start: 09/06/22 18:45 Freq: Status: Active Protocol: Document 09/10/22 13:03 LRN (Rec: 09/10/22 19:20 LRN [id number]) OP Gait Assessment Gait Gait Assistance Required: Independent Able to Maintain Weight Bearing Status Yes During Gait Assistive Devices Assistive Device None Gait Deviations General Gait Pattern Flexed Trunk,Wide Based Gait Factors Limiting Gait Function Factors Limiting Gait Function Decreased Sensation,Decreased Strength,Pain Comments Gait Comments Pain in heels with heel strike . PT-OP-H Neuro Start: 09/06/22 18:45 Freq: Status: Active Protocol: Document 09/10/22 13:03 LRN (Rec: 09/10/22 19:20 LRN [id number]) Sensation Evaluation Gross Sensation Gross Sensation WNL,Left LE Impaired,Right LE Impaired Sensation Description Tingling,Pins & [place], Heaviness Comments Summary Comments Pt is able to feel light touch /firm pressure difference, and reports having normal sensation to hot/cold. Deep Tendon Reflex & Clonus Assessment Deep Tendon Reflex Bilateral Achilles Deep Tendon Reflex 2+ Normal PT-OP-J Posture/Palpation/Skin Start: 09/06/22 18:45 Freq: Status: Active Protocol: Document 09/14/22 13:04 LRN (Rec: 09/14/22 16:59 LRN [id number]) Palpation Assessment Location Medial Malleoli in supine Palpation Location Medial malleolus Palpation Details L leg is short/ R leg long. PT-OP-K Range of Motion Start: 09/06/22 18:45 Freq: Status: Active Protocol: Document 10/30/22 10:44 LRN (Rec: 10/30/22 11:29 LRN [id number]) Hip Goniometric Range of Motion Hip Right Passive Testing Position Supine Straight Leg Raise 95 Internal Rotation 15 External Rotation 75 Left Passive Testing Position Supine Straight Leg Raise 85 Internal Rotation 20 External Rotation 70 PT-OP-M Strength Start: 09/06/22 18:45 Freq: Status: Active Protocol: Document 09/18/22 13:03 LRN (Rec: 09/18/22 16:24 LRN [id number]) Trunk Strength Trunk Manual Muscle Testing Core Stabilization Pt has mild loss of core stability with MMT of LE's, especially with testing of R hip flexion (weak L trunk rot) . Hip Strength Hip Manual Muscle Testing Right Comments Generally 5/5 Left Extension (S1) 4 Good Adduction 3 Fair External Rotation 3+ Fair+ Comments Generally 5/5 except as indicated abovel PT-OP-Q Treatments Start: 09/06/22 18:45 Freq: Status: Active Protocol: Document 11/05/22 13:03 LRN (Rec: 11/05/22 13:54 LRN [id number]) Cardio Equipment Bicycle (Upright) Duration (Minutes) 7 Resistance 5 Seat Position 8 Other Cuing for proper sit posture & TA tight. Therapeutic Exercises Supine Exercises Fig 4 stretch Supine Exercise Name Fig 4 stretch Side left Reps/Minutes 6' Comments Extra time to determine max tolerated stretch. Pillow under L thigh needed Hip IR stretch Supine Exercise Name W-sit on R side. Side right Reps/Minutes 6' Trunk rot stretch Supine Exercise Name Trunk Rot stretch-knees to R Side right Reps/Minutes 10 SH x 6 Lateral Hip stretch Supine Exercise Name Lateral hip stretch Side right Reps/Minutes 2x Comments Extra time for review Piriformis stretch Supine Exercise Name Piriformis stretch Side right Reps/Minutes 2x Comments Followed by C/R stretch & active stretch. Manual Therapy Treatment Soft Tissue Mobilization Sonny LE's Body Location Sonny Gastroc/Soleus complex, and plantar surface of feet Mobilization Type Instrument Assisted,Strumming Intensity/Depth Superficial > Moderate Body Position Sidelying Comments Pt tender in gastoc/soleus complex; tingling in ball of feet/toes lessened and spread to inner plantar arch to toes after STM. PT-OP-R Modalities Start: 09/06/22 18:45 Freq: Status: Active Protocol: Document 10/18/22 09:08 LRN (Rec: 10/18/22 09:51 LRN [id number]) Electric Stimulation Electric Stimulation Interferential Current (IFC) Body Location [L4-L5 Duration (Minutes) 10 Intensity 23 Target/Sweep Sweep Patient Position Hooklying Combined With Heat/Cold Hot Pack PT-OP-T Assessment and Plan Start: 09/06/22 18:45 Freq: Status: Active Protocol: Document 11/05/22 13:03 LRN (Rec: 11/05/22 13:54 LRN [id number]) Physical Therapy Assessment Goals Three Impairment Heel pain with gait rated 2-3/ 10. Short Term Goal (STG) Improve hip rotational mobility (IR>ER) with lessening heel pain with gait. STG Duration 10/26/22 Nutrition Coordinator Goal (LTG) Pelvic symmetry and stability ex's with no heel pain when walking. 09/18/22: Pelvis symmetrical. Heel pain is in variable locations (inner and outer heel). LTG Duration 12/09/22 partially met goal 09/18/22. Two Impairment Neuropathy of feet Impairment Sensation: Stephanie and wearing a wrinkled sock feeling worse in ball of feet and 1-3 digits of the toes, plantar surface. Short Term Goal (STG) Pt will be educated in proper body mechanics. STG Duration 10/26/22 (09/18/22: MET GOAL) Snf Goal (LTG) Normalize sensation in the feet bilaterally. 10/02/22: End of treatment decrease sandyfeeling to toes 1-3 bilaterally. 10/18/22: RLE except toes has reduced stephanie feeling, less tingling. LTG Duration 12/09/22 Intermittent progression 10/18/22 One Impairment Lacks appropriate self care HEP. Short Term Goal (STG) Pt will be educated in proper posturing and use of home modalities for pain/sensation management. STG Duration 10/26/22 (09/18/22: MET GOAL) Nutrition Coordinator Goal (LTG) Pt goal is to not have pain, normal again. has 12 and 9 yo and wants to travel. No sensation, pain in heel - with way to take care. 09/14/22: I/S in TA strengthening. 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 (In prone) The feet tingling intensity decreased with spread of tingling from heels distal 1/3 to distal 2/3 after STM. Decreased gastroc tension after STM. Physical Therapy Plan Frequency and Duration Frequency of Treatment 2x/Week Plan of Care Start Date 09/10/22 Plan of Care End Date 12/09/22 Next Visit Focus/Plan Next Note Type Treatment Note Next Visit Plan Assess Trunk AROM. Assess response to upright ex bike for LE circulation, and response to STM of feet/ gastrocs. STM to back and L hip>R hip. Cont R Hip IR/L hip ER (fig 4) stretching. Manual: No STM on days having accupuncture at accupuncturist's request. Ex's/HEP: Pelvic/core stabilization. Sacral balancing when needed. Pt to continue use of tilt table at home.
--- NOTE | 2022-11-08 17:36 | PT.OTN ---
Current Diagnoses Polyneuropathy, unspecified (11/08/22) Radiculopathy, site unspecified (11/08/22) Muscle weakness (generalized) (11/08/22) Abnormal posture (11/08/22) Other reduced mobility (11/08/22) Physical Therapy Treatment Note PT-OP-A Visit Information Start: 09/06/22 18:45 Freq: Status: Active Protocol: Document 11/08/22 13:05 LRN (Rec: 11/08/22 17:35 LRN [id number]) Out-Patient Physical Therapy Visit Information Visit Information Visit Type Treatment Note Visit Start Time 13:05 Visit Stop Time 13:46 Total Visit Minutes 41 Visit Number Evaluation Information Evaluation Date 09/10/22 Precautions Precautions Inguinal Hernia-R front mesh. PT-OP-B Current Condition Start: 09/06/22 18:45 Freq: Status: Active Protocol: Document 09/10/22 13:03 LRN (Rec: 09/10/22 19:20 LRN [id number]) Current Condition History of Current Condition Onset Date Few months ago Current Complaints Sonny foot stephanie feeling and feeling of socks on feet. History of Current Condition Few months ago went for a walk wearing his orthotics and hurt his L heel. He took it easy and 3 weeks later he started to get neuropathy, a feeling of sandiness and sock on L foot. Now the neuropathy has started in his R foot. Denies foot pain. States he stands a lot with a wide spread stance. States he feels hot/cold, tickling, feels like bunched sock in toes and the tingling as if feet have fallen asleep, comes and goes with standing. States he has weakness in his legs. Does [employer]irdyne bike and yoga daily. 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 Future Testing and Treatments Planned 09/24/22: Water Main Installer Helper appt (Dr Emilia Hinton in ) 09/26/22: Accupuncture appt. Developmental History Developmental History Occasionally has had achilles tendonitis of L heel (pain on heel and outside of heel) and he would ice it. 10 yrs ago he was carrying his daughter, and she tried to throw herself onto the ground, causing him to quickly bend forward to keep from dropping her, since then he has had R thigh sensations (wet) and if he stands for excessive time his R thigh kang. When he worked, 16-18 hr days he had achy feet. Treatment Goals Patient/Caregiver Goals Pt goal is to not have pain, normal again. has 12 and 10 yo and wants to travel. No sensation, pain in heel - with way to take care. No pain with walking. Prior Functional Status Baseline Function- ADL's Independent Baseline Function- Mobility Independent Baseline Function- Work/School Building his deck, odd standing. Baseline Function- Recreation/Hobbies Worked in garden. Current Functional Impairments (Reported) Functional Limitations- ADL's Difficulty hauling his trash can up his driveway because the feet feel like he has been working all day. Functional Limitations- Mobility/Gait Weakness in legs; therefore not confident in gait. Clumsiness. Functional Limitations- Work/School Self employed. Functional Limitations- Recreation/ Does [employer] bike and yoga Hobbies daily. Personal Factors Other Personal Factors That May Effect Pt reports being very active Therapy/Recovery and is wanting to travel with his spouse and children ages 12 & 10. Back injury 10 yrs ago. Flattened arches requiring orthotics in shoes. PT-OP-C Subjective Start: 09/06/22 18:45 Freq: Status: Active Protocol: Document 11/08/22 13:05 LRN (Rec: 11/08/22 17:35 LRN [id number]) OP-PT Subjective Patient Comments Patient Comments States after last session, everything was heavy, worsened things in the feet. Made tingling more intense. Yesterday, was busy and the feet were still worse and the legs felt very heavy. Wed is typically a long, hard day. Saw field support specialist yesterday and was told the next step is to take anti-inflammatories and agreed to a localized shot , but had a feeling he was being told surgery will be needed. Pt states he ex's on the airbike at home for 5 miles (~20'). Today, sensation in the feet is more prickly. PT-OP-G Mobility & Gait Start: 09/06/22 18:45 Freq: Status: Active Protocol: Document 09/10/22 13:03 LRN (Rec: 09/10/22 19:20 LRN [id number]) OP Gait Assessment Gait Gait Assistance Required: Independent Able to Maintain Weight Bearing Status Yes During Gait Assistive Devices Assistive Device None Gait Deviations General Gait Pattern Flexed Trunk,Wide Based Gait Factors Limiting Gait Function Factors Limiting Gait Function Decreased Sensation,Decreased Strength,Pain Comments Gait Comments Pain in heels with heel strike . PT-OP-H Neuro Start: 09/06/22 18:45 Freq: Status: Active Protocol: Document 09/10/22 13:03 LRN (Rec: 09/10/22 19:20 LRN [id number]) Sensation Evaluation Gross Sensation Gross Sensation WNL,Left LE Impaired,Right LE Impaired Sensation Description Tingling,Pins & [place], Heaviness Comments Summary Comments Pt is able to feel light touch /firm pressure difference, and reports having normal sensation to hot/cold. Deep Tendon Reflex & Clonus Assessment Deep Tendon Reflex Bilateral Achilles Deep Tendon Reflex 2+ Normal PT-OP-J Posture/Palpation/Skin Start: 09/06/22 18:45 Freq: Status: Active Protocol: Document 09/14/22 13:04 LRN (Rec: 09/14/22 16:59 LRN [id number]) Palpation Assessment Location Medial Malleoli in supine Palpation Location Medial malleolus Palpation Details L leg is short/ R leg long. PT-OP-K Range of Motion Start: 09/06/22 18:45 Freq: Status: Active Protocol: Document 11/08/22 13:05 LRN (Rec: 11/08/22 17:35 LRN [id number]) Lumbar Spine Range of Motion Lumbar Spine Active Degrees Testing Position Standing Flexion 100 Extension 7 Rotation Left 5 Rotation Right 10 Lateral Flexion Left 10 Lateral Flexion Right 9 ROM Limitations Pain Comments Flexion is 100 deg's with 70 deg's hip flexion. Extension is 7 deg's with 5 deg's hip extension. R SB caused pain at ~L5 right facet jt. PT-OP-M Strength Start: 09/06/22 18:45 Freq: Status: Active Protocol: Document 09/18/22 13:03 LRN (Rec: 09/18/22 16:24 LRN [id number]) Trunk Strength Trunk Manual Muscle Testing Core Stabilization Pt has mild loss of core stability with MMT of LE's, especially with testing of R hip flexion (weak L trunk rot) . Hip Strength Hip Manual Muscle Testing Right Comments Generally 5/5 Left Extension (S1) 4 Good Adduction 3 Fair External Rotation 3+ Fair+ Comments Generally 5/5 except as indicated abovel PT-OP-Q Treatments Start: 09/06/22 18:45 Freq: Status: Active Protocol: Document 11/08/22 13:05 LRN (Rec: 11/08/22 17:35 LRN [id number]) Therapeutic Exercises Supine Exercises Fig 4 stretch Supine Exercise Name Fig 4 stretch Side left Reps/Minutes 6' Comments Extra time to determine max tolerated stretch. Pillow under L thigh needed Hip IR stretch Supine Exercise Name W-sit on R side. Side right Reps/Minutes 6' Trunk rot stretch Supine Exercise Name Trunk Rot stretch-knees to R Side right Reps/Minutes 10 SH x 6 Lateral Hip stretch Supine Exercise Name Lateral hip stretch Side right Reps/Minutes 2x Comments Extra time for review Piriformis stretch Supine Exercise Name Piriformis stretch Side right Reps/Minutes 2x Comments Followed by C/R stretch & active stretch. Manual Therapy Treatment Soft Tissue Mobilization R Hip Body Location R Gluteal Mobilization Type Strumming Intensity/Depth Moderate Body Position Prone Sacrum Body Location R lateral border of Sacrum Mobilization Type Sustained Pressure Body Position Prone Comments Gentle PA to correct R rotation. R QL Body Location R QL Mobilization Type Strumming Intensity/Depth Moderate Body Position Prone Self-Care/Home Management Treatment Education Patient Education Pain Management Activities Self-Care/Home Management Activities Issued & educated pt in use of Hot/Cold program for decrease in inflammation/neural changes. PT-OP-R Modalities Start: 09/06/22 18:45 Freq: Status: Active Protocol: Document 10/18/22 09:08 LRN (Rec: 10/18/22 09:51 LRN [id number]) Electric Stimulation Electric Stimulation Interferential Current (IFC) Body Location [L4-L5 Duration (Minutes) 10 Intensity 23 Target/Sweep Sweep Patient Position Hooklying Combined With Heat/Cold Hot Pack PT-OP-T Assessment and Plan Start: 09/06/22 18:45 Freq: Status: Active Protocol: Document 11/08/22 13:05 LRN (Rec: 11/08/22 17:35 LRN [id number]) Physical Therapy Assessment Goals Three Impairment Heel pain with gait rated 2-3/ 10. Short Term Goal (STG) Improve hip rotational mobility (IR>ER) with lessening heel pain with gait. 11/08/22: L Heel pain comes/ goes during the day. STG Duration 10/26/22 ?progression Senior Ui Developer Goal (LTG) Pelvic symmetry and stability ex's with no heel pain when walking. 09/18/22: Pelvis symmetrical. Heel pain is in variable locations (inner and outer heel). LTG Duration 12/09/22 partially met goal 09/18/22. Two Impairment Neuropathy of feet Impairment Sensation: Stephanie and wearing a wrinkled sock feeling worse in ball of feet and 1-3 digits of the toes, plantar surface. Short Term Goal (STG) Pt will be educated in proper body mechanics. STG Duration 10/26/22 (09/18/22: MET GOAL) Nursing Home Goal (LTG) Normalize sensation in the feet bilaterally. 10/02/22: End of treatment decrease sandyfeeling to toes 1-3 bilaterally. 10/18/22: RLE except toes has reduced stephanie feeling, less tingling. LTG Duration 12/09/22 Intermittent progression 10/18/22 One Impairment Lacks appropriate self care HEP. Short Term Goal (STG) Pt will be educated in proper posturing and use of home modalities for pain/sensation management. STG Duration 10/26/22 (09/18/22: MET GOAL) Senior Ui Developer Goal (LTG) Pt goal is to not have pain, normal again. has 12 and 9 yo and wants to travel. No sensation, pain in heel - with way to take care. 09/14/22: I/S in TA strengthening. LTG Duration 12/09/22 progressing Assessment Summary Assessment Instrument assisted massage appears to have had a negative effect on foot/thigh symptoms ; therefore will discontinue. His trunk mobility is restricted with extension (as expected), R SB & rotation. Pt has good recall of all hip stretches. Pt is using ex bike at home for ~20' without worsening of symptoms; therefore ex to improve circulation is without symptom change. Pt is expected to have cortisone injection in back; therfore pt will need program of abdominal strengthening for further core stabilization. Physical Therapy Plan Frequency and Duration Frequency of Treatment 2x/Week Plan of Care Start Date 09/10/22 Plan of Care End Date 12/09/22 Next Visit Focus/Plan Next Note Type Treatment Note Next Visit Plan Probable DC to self care program after: Assess R Hip IR/L hip ER (fig 4) ROM for symmetry and I/S for HEP & Ex's HEP: Core ( abdominal) stabilization. Review proper body mechanics/ ADLS. STM to back and L hip>R hip if requested. Manual: No STM on days having accupuncture at accupuncturist's request. Pt to continue use of tilt table at home.
--- NOTE | 2022-11-13 17:54 | PT.OTN ---
Current Diagnoses Polyneuropathy, unspecified (11/13/22) Radiculopathy, site unspecified (11/13/22) Muscle weakness (generalized) (11/13/22) Abnormal posture (11/13/22) Other reduced mobility (11/13/22) Physical Therapy Treatment Note PT-OP-A Visit Information Start: 09/06/22 18:45 Freq: Status: Active Protocol: Document 11/13/22 10:47 LRN (Rec: 11/13/22 12:39 LRN [id number]) Out-Patient Physical Therapy Visit Information Visit Information Visit Type Treatment Note Visit Note 3 after PN Visit Start Time 10:47 Visit Stop Time 11:25 Total Visit Minutes 38 Visit Number Evaluation Information Evaluation Date 09/10/22 Precautions Precautions Inguinal Hernia-R front mesh. PT-OP-B Current Condition Start: 09/06/22 18:45 Freq: Status: Active Protocol: Document 09/10/22 13:03 LRN (Rec: 09/10/22 19:20 LRN [id number]) Current Condition History of Current Condition Onset Date Few months ago Current Complaints Sonny foot lyubov feeling and feeling of socks on feet. History of Current Condition Few months ago went for a walk wearing his orthotics and hurt his L heel. He took it easy and 3 weeks later he started to get neuropathy, a feeling of sandiness and sock on L foot. Now the neuropathy has started in his R foot. Denies foot pain. States he stands a lot with a wide spread stance. States he feels hot/cold, tickling, feels like bunched sock in toes and the tingling as if feet have fallen asleep, comes and goes with standing. States he has weakness in his legs. Does [employer]irdyne bike and yoga daily. 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 Future Testing and Treatments Planned 09/24/22: Hepatology Physician appt (Dr Emilia Hinton in ) 09/26/22: Accupuncture appt. Developmental History Developmental History Occasionally has had achilles tendonitis of L heel (pain on heel and outside of heel) and he would ice it. 10 yrs ago he was carrying his daughter, and she tried to throw herself onto the ground, causing him to quickly bend forward to keep from dropping her, since then he has had R thigh sensations (wet) and if he stands for excessive time his R thigh kang. When he worked, 16-18 hr days he had achy feet. Treatment Goals Patient/Caregiver Goals Pt goal is to not have pain, normal again. has 12 and 9 yo and wants to travel. No sensation, pain in heel - with way to take care. No pain with walking. Prior Functional Status Baseline Function- ADL's Independent Baseline Function- Mobility Independent Baseline Function- Work/School Building his deck, odd standing. Baseline Function- Recreation/Hobbies Worked in garden. Current Functional Impairments (Reported) Functional Limitations- ADL's Difficulty hauling his trash can up his driveway because the feet feel like he has been working all day. Functional Limitations- Mobility/Gait Weakness in legs; therefore not confident in gait. Clumsiness. Functional Limitations- Work/School Self employed. Functional Limitations- Recreation/ Does [employer]irdyne bike and yoga Hobbies daily. Personal Factors Other Personal Factors That May Effect Pt reports being very active Therapy/Recovery and is wanting to travel with his spouse and children ages 12 & 10. Back injury 10 yrs ago. Flattened arches requiring orthotics in shoes. PT-OP-C Subjective Start: 09/06/22 18:45 Freq: Status: Active Protocol: Document 11/13/22 10:47 LRN (Rec: 11/13/22 12:39 LRN [id number]) OP-PT Subjective Patient Comments Patient Comments Not a bad day, feet low frequency and volume legs feel a little weak. Noticed with LTR ex, when knees fall to the right he has the granular feeling of numbness and less zinging throughout the feet. Not noticed anything in the legs. Worsens on LLE with knees fall to left. PT-OP-G Mobility & Gait Start: 09/06/22 18:45 Freq: Status: Active Protocol: Document 09/10/22 13:03 LRN (Rec: 09/10/22 19:20 LRN [id number]) OP Gait Assessment Gait Gait Assistance Required: Independent Able to Maintain Weight Bearing Status Yes During Gait Assistive Devices Assistive Device None Gait Deviations General Gait Pattern Flexed Trunk,Wide Based Gait Factors Limiting Gait Function Factors Limiting Gait Function Decreased Sensation,Decreased Strength,Pain Comments Gait Comments Pain in heels with heel strike . PT-OP-H Neuro Start: 09/06/22 18:45 Freq: Status: Active Protocol: Document 09/10/22 13:03 LRN (Rec: 09/10/22 19:20 LRN [id number]) Sensation Evaluation Gross Sensation Gross Sensation WNL,Left LE Impaired,Right LE Impaired Sensation Description Tingling,Pins & [place], Heaviness Comments Summary Comments Pt is able to feel light touch /firm pressure difference, and reports having normal sensation to hot/cold. Deep Tendon Reflex & Clonus Assessment Deep Tendon Reflex Bilateral Achilles Deep Tendon Reflex 2+ Normal PT-OP-J Posture/Palpation/Skin Start: 09/06/22 18:45 Freq: Status: Active Protocol: Document 09/14/22 13:04 LRN (Rec: 09/14/22 16:59 LRN [id number]) Palpation Assessment Location Medial Malleoli in supine Palpation Location Medial malleolus Palpation Details L leg is short/ R leg long. PT-OP-K Range of Motion Start: 09/06/22 18:45 Freq: Status: Active Protocol: Document 11/13/22 10:47 LRN (Rec: 11/13/22 12:39 LRN [id number]) Hip Goniometric Range of Motion Hip Right Passive Testing Position Supine Internal Rotation 20 External Rotation 70 Left Passive Testing Position Supine Internal Rotation 25 External Rotation 75 PT-OP-M Strength Start: 09/06/22 18:45 Freq: Status: Active Protocol: Document 09/18/22 13:03 LRN (Rec: 09/18/22 16:24 LRN [id number]) Trunk Strength Trunk Manual Muscle Testing Core Stabilization Pt has mild loss of core stability with MMT of LE's, especially with testing of R hip flexion (weak L trunk rot) . Hip Strength Hip Manual Muscle Testing Right Comments Generally 5/5 Left Extension (S1) 4 Good Adduction 3 Fair External Rotation 3+ Fair+ Comments Generally 5/5 except as indicated abovel PT-OP-Q Treatments Start: 09/06/22 18:45 Freq: Status: Active Protocol: Document 11/13/22 10:47 LRN (Rec: 11/13/22 12:39 LRN [id number]) Therapeutic Exercises Supine Exercises PROM hips Supine Exercise Name PROM hips ER/IR stretching Side bilateral Comments PROM taken Fig 4 stretch Supine Exercise Name Fig 4 stretch Side left Reps/Minutes 6' Comments Extra time to determine max tolerated stretch. Pillow under L thigh needed Hip IR stretch Supine Exercise Name W-sit on R side. Side right Reps/Minutes 6' Trunk rot stretch Supine Exercise Name Trunk Rot stretch-knees to R Side right Reps/Minutes 10 SH x 6 Lateral Hip stretch Supine Exercise Name Lateral hip stretch Side right Reps/Minutes 2x Comments Extra time for review Piriformis stretch Supine Exercise Name Piriformis stretch Side right Reps/Minutes 2x Comments Followed by C/R stretch & active stretch. Manual Therapy Treatment Soft Tissue Mobilization Hip Internal Rotators Body Location DANIS stretch into bilateral hip IR (R>L) Comments R hip ms tighter than L. Self-Care/Home Management Treatment Education Other Education Discussed at length POC, with pt agreeable to continue with plan, as after therapy it might be decided to have cortisone injection in the low back. Activities Self-Care/Home Management Activities Briefly reviewed proper body mechanics for transfers and briefly discussed pt adhering to proper body mechanics for ADLS. PT-OP-R Modalities Start: 09/06/22 18:45 Freq: Status: Active Protocol: Document 10/18/22 09:08 LRN (Rec: 10/18/22 09:51 LRN [id number]) Electric Stimulation Electric Stimulation Interferential Current (IFC) Body Location [L4-L5 Duration (Minutes) 10 Intensity 23 Target/Sweep Sweep Patient Position Hooklying Combined With Heat/Cold Hot Pack PT-OP-T Assessment and Plan Start: 09/06/22 18:45 Freq: Status: Active Protocol: Document 11/13/22 10:47 LRN (Rec: 11/13/22 12:39 LRN [id number]) Physical Therapy Assessment Goals Three Impairment Heel pain with gait rated 2-3/ 10. Short Term Goal (STG) Improve hip rotational mobility (IR>ER) with lessening heel pain with gait. 11/08/22: L Heel pain comes/ goes during the day. STG Duration 10/26/22 ?progression Physician Internist Goal (LTG) Pelvic symmetry and stability ex's with no heel pain when walking. 09/18/22: Pelvis symmetrical. Heel pain is in variable locations (inner and outer heel). LTG Duration 12/09/22 partially met goal 09/18/22. Two Impairment Neuropathy of feet Impairment Sensation: Lyubov and wearing a wrinkled sock feeling worse in ball of feet and 1-3 digits of the toes, plantar surface. Short Term Goal (STG) Pt will be educated in proper body mechanics. STG Duration 10/26/22 (09/18/22: MET GOAL) Physician Internist Goal (LTG) Normalize sensation in the feet bilaterally. 10/02/22: End of treatment decrease sandyfeeling to toes 1-3 bilaterally. 10/18/22: RLE except toes has reduced lyubov feeling, less tingling. LTG Duration 12/09/22 Intermittent progression 10/18/22 One Impairment Lacks appropriate self care HEP. Short Term Goal (STG) Pt will be educated in proper posturing and use of home modalities for pain/sensation management. STG Duration 10/26/22 (09/18/22: MET GOAL) Physician Internist Goal (LTG) Pt goal is to not have pain, normal again. has 12 and 9 yo and wants to travel. No sensation, pain in heel - with way to take care. 09/14/22: I/S in TA strengthening. LTG Duration 12/09/22 progressing Assessment Summary Assessment Reviewed proper body mechanics for transfers and briefly discussed pt adhering to proper body mechanics for ADLS . Pt pelvis symmetry has been maintained. Appears use of contrast bath treatment at home has helped the sensation in the feet. Physical Therapy Plan Frequency and Duration Frequency of Treatment 2x/Week Plan of Care Start Date 09/10/22 Plan of Care End Date 12/09/22 Next Visit Focus/Plan Next Note Type Treatment Note Next Visit Plan Cont with POC. Review HEP of prone hip IR stretch (check for handout to issued). I/S for HEP & Ex's HEP: Core (abdominal) stabilization. STM DANIS to improve hip IR mobility, Improve L/S jt mechanics avoiding L4-S1. Pt to cont contrast bath treatment to feet at home. Manual: No STM on days having accupuncture at accupuncturist's request. Pt to continue use of tilt table at home.
--- NOTE | 2022-11-15 12:39 | PT.OTN ---
Current Diagnoses Polyneuropathy, unspecified (11/15/22) Radiculopathy, site unspecified (11/15/22) Muscle weakness (generalized) (11/15/22) Abnormal posture (11/15/22) Other reduced mobility (11/15/22) Physical Therapy Treatment Note PT-OP-A Visit Information Start: 09/06/22 18:45 Freq: Status: Active Protocol: Document 11/15/22 11:20 LRN (Rec: 11/15/22 12:38 LRN [id number]) Out-Patient Physical Therapy Visit Information Visit Information Visit Type Treatment Note Visit Note 4 after PN Visit Start Time 11:20 Visit Stop Time 12:00 Total Visit Minutes 40 Visit Number Evaluation Information Evaluation Date 09/10/22 Precautions Precautions Inguinal Hernia-R front mesh. PT-OP-B Current Condition Start: 09/06/22 18:45 Freq: Status: Active Protocol: Document 09/10/22 13:03 LRN (Rec: 09/10/22 19:20 LRN [id number]) Current Condition History of Current Condition Onset Date Few months ago Current Complaints Sonny foot lyubov feeling and feeling of socks on feet. History of Current Condition Few months ago went for a walk wearing his orthotics and hurt his L heel. He took it easy and 3 weeks later he started to get neuropathy, a feeling of sandiness and sock on L foot. Now the neuropathy has started in his R foot. Denies foot pain. States he stands a lot with a wide spread stance. States he feels hot/cold, tickling, feels like bunched sock in toes and the tingling as if feet have fallen asleep, comes and goes with standing. States he has weakness in his legs. Does Airdyne bike and yoga daily. 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 Future Testing and Treatments Planned 09/24/22: Print Line Inspector appt (Dr Emilia Hinton in ) 09/26/22: Accupuncture appt. Developmental History Developmental History Occasionally has had achilles tendonitis of L heel (pain on heel and outside of heel) and he would ice it. 10 yrs ago he was carrying his daughter, and she tried to throw herself onto the ground, causing him to quickly bend forward to keep from dropping her, since then he has had R thigh sensations (wet) and if he stands for excessive time his R thigh kang. When he worked, 16-18 hr days he had achy feet. Treatment Goals Patient/Caregiver Goals Pt goal is to not have pain, normal again. has 12 and 10 yo and wants to travel. No sensation, pain in heel - with way to take care. No pain with walking. Prior Functional Status Baseline Function- ADL's Independent Baseline Function- Mobility Independent Baseline Function- Work/School Building his deck, odd standing. Baseline Function- Recreation/Hobbies Worked in garden. Current Functional Impairments (Reported) Functional Limitations- ADL's Difficulty hauling his trash can up his driveway because the feet feel like he has been working all day. Functional Limitations- Mobility/Gait Weakness in legs; therefore not confident in gait. Clumsiness. Functional Limitations- Work/School Self employed. Functional Limitations- Recreation/ Does Airdyne bike and yoga Hobbies daily. Personal Factors Other Personal Factors That May Effect Pt reports being very active Therapy/Recovery and is wanting to travel with his spouse and children ages 12 & 10. Back injury 10 yrs ago. Flattened arches requiring orthotics in shoes. PT-OP-C Subjective Start: 09/06/22 18:45 Freq: Status: Active Protocol: Document 11/15/22 11:20 LRN (Rec: 11/15/22 12:38 LRN [id number]) OP-PT Subjective Patient Comments Patient Comments States the Uses TA when moving in bed. Recently started Theraflex topical cream on his lower back, knees and L lower leg, a few nights since getting it a week ago. Using 2 martiniquais herb. PT-OP-G Mobility & Gait Start: 09/06/22 18:45 Freq: Status: Active Protocol: Document 09/10/22 13:03 LRN (Rec: 09/10/22 19:20 LRN [id number]) OP Gait Assessment Gait Gait Assistance Required: Independent Able to Maintain Weight Bearing Status Yes During Gait Assistive Devices Assistive Device None Gait Deviations General Gait Pattern Flexed Trunk,Wide Based Gait Factors Limiting Gait Function Factors Limiting Gait Function Decreased Sensation,Decreased Strength,Pain Comments Gait Comments Pain in heels with heel strike . PT-OP-H Neuro Start: 09/06/22 18:45 Freq: Status: Active Protocol: Document 09/10/22 13:03 LRN (Rec: 09/10/22 19:20 LRN [id number]) Sensation Evaluation Gross Sensation Gross Sensation WNL,Left LE Impaired,Right LE Impaired Sensation Description Tingling,Pins & [place], Heaviness Comments Summary Comments Pt is able to feel light touch /firm pressure difference, and reports having normal sensation to hot/cold. Deep Tendon Reflex & Clonus Assessment Deep Tendon Reflex Bilateral Achilles Deep Tendon Reflex 2+ Normal PT-OP-J Posture/Palpation/Skin Start: 09/06/22 18:45 Freq: Status: Active Protocol: Document 09/14/22 13:04 LRN (Rec: 09/14/22 16:59 LRN [id number]) Palpation Assessment Location Medial Malleoli in supine Palpation Location Medial malleolus Palpation Details L leg is short/ R leg long. PT-OP-K Range of Motion Start: 09/06/22 18:45 Freq: Status: Active Protocol: Document 11/13/22 10:47 LRN (Rec: 11/13/22 12:39 LRN [id number]) Hip Goniometric Range of Motion Hip Right Passive Testing Position Supine Internal Rotation 20 External Rotation 70 Left Passive Testing Position Supine Internal Rotation 25 External Rotation 75 PT-OP-M Strength Start: 09/06/22 18:45 Freq: Status: Active Protocol: Document 09/18/22 13:03 LRN (Rec: 09/18/22 16:24 LRN [id number]) Trunk Strength Trunk Manual Muscle Testing Core Stabilization Pt has mild loss of core stability with MMT of LE's, especially with testing of R hip flexion (weak L trunk rot) . Hip Strength Hip Manual Muscle Testing Right Comments Generally 5/5 Left Extension (S1) 4 Good Adduction 3 Fair External Rotation 3+ Fair+ Comments Generally 5/5 except as indicated abovel PT-OP-Q Treatments Start: 09/06/22 18:45 Freq: Status: Active Protocol: Document 11/15/22 11:20 LRN (Rec: 11/15/22 12:38 LRN [id number]) Cardio Equipment Bicycle (Upright) Duration (Minutes) 8 Resistance 5 Seat Position 8 Other stopping after 5' and 8' for pt to walk. Therapeutic Exercises Supine Exercises Thoracic Ext Supine Exercise Name Supine on 10/29 roll, arms V, goal post, cross. Reps/Minutes 5' Comments Pt in supine knees flexed Hip IR stretch Supine Exercise Name W-sit on R side. Side right Reps/Minutes 6' Manual Therapy Treatment Soft Tissue Mobilization Hip Internal Rotators Body Location DANIS stretch into bilateral hip IR (R>L) Intensity/Depth Moderate Body Position Prone Comments R hip ms mildly tighter than L . Joint Mobilizations Thoracic spine Joint PA Thoracic Spine Direction PA, Rot Grade III Body Position Prone Reps/Duration 7' Manual Traction Lumbar Details Manual intermittent lumbar traction Body Position Hooklying Reps/Duration 6' PT-OP-R Modalities Start: 09/06/22 18:45 Freq: Status: Active Protocol: Document 10/18/22 09:08 LRN (Rec: 10/18/22 09:51 LRN [id number]) Electric Stimulation Electric Stimulation Interferential Current (IFC) Body Location [L4-L5 Duration (Minutes) 10 Intensity 23 Target/Sweep Sweep Patient Position Hooklying Combined With Heat/Cold Hot Pack PT-OP-T Assessment and Plan Start: 09/06/22 18:45 Freq: Status: Active Protocol: Document 11/15/22 11:20 LRN (Rec: 11/15/22 12:38 LRN [id number]) Physical Therapy Assessment Goals Three Impairment Heel pain with gait rated 2-3/ 10. Short Term Goal (STG) Improve hip rotational mobility (IR>ER) with lessening heel pain with gait. 11/08/22: L Heel pain comes/ goes during the day. STG Duration 10/26/22 ?progression Guardian Family Member Goal (LTG) Pelvic symmetry and stability ex's with no heel pain when walking. 09/18/22: Pelvis symmetrical. Heel pain is in variable locations (inner and outer heel). LTG Duration 12/09/22 partially met goal 09/18/22. Two Impairment Neuropathy of feet Impairment Sensation: Lyubov and wearing a wrinkled sock feeling worse in ball of feet and 1-3 digits of the toes, plantar surface. Short Term Goal (STG) Pt will be educated in proper body mechanics. STG Duration 10/26/22 (09/18/22: MET GOAL) Senior Living Goal (LTG) Normalize sensation in the feet bilaterally. 10/02/22: End of treatment decrease sandyfeeling to toes 1-3 bilaterally. 10/18/22: RLE except toes has reduced lyubov feeling, less tingling. 11/15/22: Feet and thighs more normalization in feeling. LTG Duration 12/09/22 Intermittent progression 10/18/22 One Impairment Lacks appropriate self care HEP. Short Term Goal (STG) Pt will be educated in proper posturing and use of home modalities for pain/sensation management. STG Duration 10/26/22 (09/18/22: MET GOAL) Senior Living Goal (LTG) Pt goal is to not have pain, normal again. has 12 and 9 yo and wants to travel. No sensation, pain in heel - with way to take care. 09/14/22: I/S in TA strengthening. LTG Duration 12/09/22 progressing Assessment Summary Assessment Pt felt improved feeling in the legs afer treatment, feels good. No change in the heaviness feeling in the thighs and feet feeing ~20% to normal. Physical Therapy Plan Frequency and Duration Frequency of Treatment 2x/Week Plan of Care Start Date 09/10/22 Plan of Care End Date 12/09/22 Next Visit Focus/Plan Next Note Type Treatment Note Next Visit Plan Switch to every other week treatments. Issue HEP of prone hip IR stretch if available. Cont: Aeorbic LE conditioning , Stretch (hip IR-DANIS, thoracic, ?lumbar flex), progress Core (abdominal) stabilization for trunk flex. Improve L/S jt mechanics avoiding L4-S1. Pt to cont contrast bath treatment to feet at home. Manual: No STM on days having accupuncture at accupuncturist's request. Pt to continue use of tilt table at home.
--- NOTE | 2022-11-19 10:55 | PT.OTN ---
Current Diagnoses Polyneuropathy, unspecified (11/19/22) Radiculopathy, site unspecified (11/19/22) Muscle weakness (generalized) (11/19/22) Abnormal posture (11/19/22) Other reduced mobility (11/19/22) Physical Therapy Treatment Note PT-OP-A Visit Information Start: 09/06/22 18:45 Freq: Status: Active Protocol: Document 11/19/22 09:50 LRN (Rec: 11/19/22 10:53 LRN [id number]) Out-Patient Physical Therapy Visit Information Visit Information Visit Type Treatment Note Visit Start Time 09:50 Visit Stop Time 10:40 Total Visit Minutes 50 Visit Number Evaluation Information Evaluation Date 09/10/22 Precautions Precautions Inguinal Hernia-R front mesh. PT-OP-B Current Condition Start: 09/06/22 18:45 Freq: Status: Active Protocol: Document 09/10/22 13:03 LRN (Rec: 09/10/22 19:20 LRN [id number]) Current Condition History of Current Condition Onset Date Few months ago Current Complaints Sonny foot lyubov feeling and feeling of socks on feet. History of Current Condition Few months ago went for a walk wearing his orthotics and hurt his L heel. He took it easy and 3 weeks later he started to get neuropathy, a feeling of sandiness and sock on L foot. Now the neuropathy has started in his R foot. Denies foot pain. States he stands a lot with a wide spread stance. States he feels hot/cold, tickling, feels like bunched sock in toes and the tingling as if feet have fallen asleep, comes and goes with standing. States he has weakness in his legs. Does Airdyne bike and yoga daily. 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 Future Testing and Treatments Planned 09/24/22: Wine Bottle Inspector appt (Dr Emilia Hinton in ) 09/26/22: Accupuncture appt. Developmental History Developmental History Occasionally has had achilles tendonitis of L heel (pain on heel and outside of heel) and he would ice it. 10 yrs ago he was carrying his daughter, and she tried to throw herself onto the ground, causing him to quickly bend forward to keep from dropping her, since then he has had R thigh sensations (wet) and if he stands for excessive time his R thigh kang. When he worked, 16-18 hr days he had achy feet. Treatment Goals Patient/Caregiver Goals Pt goal is to not have pain, normal again. has 12 and 9 yo and wants to travel. No sensation, pain in heel - with way to take care. No pain with walking. Prior Functional Status Baseline Function- ADL's Independent Baseline Function- Mobility Independent Baseline Function- Work/School Building his deck, odd standing. Baseline Function- Recreation/Hobbies Worked in garden. Current Functional Impairments (Reported) Functional Limitations- ADL's Difficulty hauling his trash can up his driveway because the feet feel like he has been working all day. Functional Limitations- Mobility/Gait Weakness in legs; therefore not confident in gait. Clumsiness. Functional Limitations- Work/School Self employed. Functional Limitations- Recreation/ Does Airdyne bike and yoga Hobbies daily. Personal Factors Other Personal Factors That May Effect Pt reports being very active Therapy/Recovery and is wanting to travel with his spouse and children ages 12 & 10. Back injury 10 yrs ago. Flattened arches requiring orthotics in shoes. PT-OP-C Subjective Start: 09/06/22 18:45 Freq: Status: Active Protocol: Document 11/19/22 09:50 LRN (Rec: 11/19/22 10:53 LRN [id number]) OP-PT Subjective Patient Comments Patient Comments Did hot/cold yesterday in evening. Ended with warm and things were worse in foot. Having L hand finger surgery on Sat (2 days) to remove a cyst. After Treatment was very sore the next day, as noted with accupucture. Accupucture helped 2 days afterwards and had some relief of the hip pain. She thought the ilpsoas wasn't firing so had abdominal treatment that helped him feel like his legs were not so heavy. End of therapy using CP to LB/Sacrum, pt states his legs feel less heavy, no change in feet, and LB/sacrum is not as sore. PT-OP-G Mobility & Gait Start: 09/06/22 18:45 Freq: Status: Active Protocol: Document 09/10/22 13:03 LRN (Rec: 09/10/22 19:20 LRN [id number]) OP Gait Assessment Gait Gait Assistance Required: Independent Able to Maintain Weight Bearing Status Yes During Gait Assistive Devices Assistive Device None Gait Deviations General Gait Pattern Flexed Trunk,Wide Based Gait Factors Limiting Gait Function Factors Limiting Gait Function Decreased Sensation,Decreased Strength,Pain Comments Gait Comments Pain in heels with heel strike . PT-OP-H Neuro Start: 09/06/22 18:45 Freq: Status: Active Protocol: Document 09/10/22 13:03 LRN (Rec: 09/10/22 19:20 LRN [id number]) Sensation Evaluation Gross Sensation Gross Sensation WNL,Left LE Impaired,Right LE Impaired Sensation Description Tingling,Pins & [place], Heaviness Comments Summary Comments Pt is able to feel light touch /firm pressure difference, and reports having normal sensation to hot/cold. Deep Tendon Reflex & Clonus Assessment Deep Tendon Reflex Bilateral Achilles Deep Tendon Reflex 2+ Normal PT-OP-J Posture/Palpation/Skin Start: 09/06/22 18:45 Freq: Status: Active Protocol: Document 09/14/22 13:04 LRN (Rec: 09/14/22 16:59 LRN [id number]) Palpation Assessment Location Medial Malleoli in supine Palpation Location Medial malleolus Palpation Details L leg is short/ R leg long. PT-OP-K Range of Motion Start: 09/06/22 18:45 Freq: Status: Active Protocol: Document 11/13/22 10:47 LRN (Rec: 11/13/22 12:39 LRN [id number]) Hip Goniometric Range of Motion Hip Right Passive Testing Position Supine Internal Rotation 20 External Rotation 70 Left Passive Testing Position Supine Internal Rotation 25 External Rotation 75 PT-OP-M Strength Start: 09/06/22 18:45 Freq: Status: Active Protocol: Document 09/18/22 13:03 LRN (Rec: 09/18/22 16:24 LRN [id number]) Trunk Strength Trunk Manual Muscle Testing Core Stabilization Pt has mild loss of core stability with MMT of LE's, especially with testing of R hip flexion (weak L trunk rot) . Hip Strength Hip Manual Muscle Testing Right Comments Generally 5/5 Left Extension (S1) 4 Good Adduction 3 Fair External Rotation 3+ Fair+ Comments Generally 5/5 except as indicated abovel PT-OP-Q Treatments Start: 09/06/22 18:45 Freq: Status: Active Protocol: Document 11/19/22 09:50 LRN (Rec: 11/19/22 10:53 LRN [id number]) Therapeutic Exercises Supine Exercises Fig 4 stretch Supine Exercise Name Fig 4 stretch Side left Reps/Minutes 6' Comments Extra time to determine max tolerated stretch. Pillow under L thigh needed Hip IR stretch Supine Exercise Name W-sit on R side. Side right Reps/Minutes 6' Lateral Hip stretch Supine Exercise Name Lateral hip stretch Side right Reps/Minutes 2x Comments Extra time for review Piriformis stretch Supine Exercise Name Piriformis stretch Side right Reps/Minutes 2x Comments Followed by C/R stretch & active stretch. Prone Exercises Hip IR stretch Prone Exercise Name Manual c/r hip ER/IR Side bilateral Reps/Minutes 12' Manual Therapy Treatment Soft Tissue Mobilization Iliopsas stretch Body Location Sonny Manual release to Iliopsoas Mobilization Type Sustained Pressure Body Position Supine Comments Release felt at L/S. Hip Internal Rotators Body Location DANIS stretch into bilateral hip IR (R>L) Intensity/Depth Moderate Body Position Prone Comments R hip ms mildly tighter than L . PT-OP-R Modalities Start: 09/06/22 18:45 Freq: Status: Active Protocol: Document 11/19/22 09:50 LRN (Rec: 11/19/22 10:55 LRN [id number]) Hot Pack/Cold Pack Treatment Cold Pack Location Lumbosacral region Patient Position Hooklying Treatment Duration (minutes) 10 Patient Tolerance Good Comments legs on bolster PT-OP-T Assessment and Plan Start: 09/06/22 18:45 Freq: Status: Active Protocol: Document 11/19/22 09:50 LRN (Rec: 11/19/22 10:53 LRN [id number]) Physical Therapy Assessment Goals Three Impairment Heel pain with gait rated 2-3/ 10. Short Term Goal (STG) Improve hip rotational mobility (IR>ER) with lessening heel pain with gait. 11/08/22: L Heel pain comes/ goes during the day. STG Duration 10/26/22 ?progression Care Home Goal (LTG) Pelvic symmetry and stability ex's with no heel pain when walking. 09/18/22: Pelvis symmetrical. Heel pain is in variable locations (inner and outer heel). LTG Duration 12/09/22 partially met goal 09/18/22. Two Impairment Neuropathy of feet Impairment Sensation: Luybov and wearing a wrinkled sock feeling worse in ball of feet and 1-3 digits of the toes, plantar surface. Short Term Goal (STG) Pt will be educated in proper body mechanics. STG Duration 10/26/22 (09/18/22: MET GOAL) Care Home Goal (LTG) Normalize sensation in the feet bilaterally. 10/02/22: End of treatment decrease sandyfeeling to toes 1-3 bilaterally. 10/18/22: RLE except toes has reduced lyubov feeling, less tingling. 11/15/22: Feet and thighs more normalization in feeling. LTG Duration 12/09/22 Intermittent progression 10/18/22 One Impairment Lacks appropriate self care HEP. Short Term Goal (STG) Pt will be educated in proper posturing and use of home modalities for pain/sensation management. STG Duration 10/26/22 (09/18/22: MET GOAL) Care Home Goal (LTG) Pt goal is to not have pain, normal again. has 12 and 9 yo and wants to travel. No sensation, pain in heel - with way to take care. 09/14/22: I/S in TA strengthening. LTG Duration 12/09/22 progressing Assessment Summary Assessment + response to use of CP at end of treatment. Pt feeling he is at a tolerable level with his symptoms if it stays his post-treatment level. Pt had reports of increased foot symptoms with use of heat to end with contrast bath at end of day yesterday; therefore possible feet symptoms more due to ?swelling vs nerve. Physical Therapy Plan Frequency and Duration Frequency of Treatment 2x/Week Plan of Care Start Date 09/10/22 Plan of Care End Date 12/09/22 Next Visit Focus/Plan Next Note Type Treatment Note Next Visit Plan ?switch to every other week treatments. Issue HEP of prone hip IR stretch if available. Cont: Aeorbic LE conditioning , Stretch (hip IR-DANIS, thoracic, ?lumbar flex), progress Core (abdominal) stabilization for trunk flex. Improve T/S & high L/S jt mechanics avoiding L3-L4, L4- S1. Pt to try contrast bath treatment to feet, ending with cold. Manual: No STM on days having accupuncture at accupuncturist's request. Pt to continue use of tilt table at home.
--- NOTE | 2022-12-06 17:55 | PT.OTN ---
Current Diagnoses Polyneuropathy, unspecified (12/06/22) Radiculopathy, site unspecified (12/06/22) Muscle weakness (generalized) (12/06/22) Abnormal posture (12/06/22) Other reduced mobility (12/06/22) Physical Therapy Treatment Note PT-OP-A Visit Information Start: 09/06/22 18:45 Freq: Status: Active Protocol: Document 12/06/22 11:19 LRN (Rec: 12/06/22 12:24 LRN [id number]) Out-Patient Physical Therapy Visit Information Visit Information Visit Type Progress Note Visit Note 6 after PN Visit Start Time 11:29 Visit Stop Time 12:21 Total Visit Minutes 52 Visit Number Evaluation Information Evaluation Date 09/10/22 Precautions Precautions Inguinal Hernia-R front mesh. PT-OP-B Current Condition Start: 09/06/22 18:45 Freq: Status: Active Protocol: Document 09/10/22 13:03 LRN (Rec: 09/10/22 19:20 LRN [id number]) Current Condition History of Current Condition Onset Date Few months ago Current Complaints Sonny foot lyubov feeling and feeling of socks on feet. History of Current Condition Few months ago went for a walk wearing his orthotics and hurt his L heel. He took it easy and 3 weeks later he started to get neuropathy, a feeling of sandiness and sock on L foot. Now the neuropathy has started in his R foot. Denies foot pain. States he stands a lot with a wide spread stance. States he feels hot/cold, tickling, feels like bunched sock in toes and the tingling as if feet have fallen asleep, comes and goes with standing. States he has weakness in his legs. Does [employer] bike and yoga daily. 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 Future Testing and Treatments Planned 09/24/22: Transportation Escort appt (Dr Emilia Hinton in ) 09/26/22: Accupuncture appt. Developmental History Developmental History Occasionally has had achilles tendonitis of L heel (pain on heel and outside of heel) and he would ice it. 10 yrs ago he was carrying his daughter, and she tried to throw herself onto the ground, causing him to quickly bend forward to keep from dropping her, since then he has had R thigh sensations (wet) and if he stands for excessive time his R thigh kang. When he worked, 16-18 hr days he had achy feet. Treatment Goals Patient/Caregiver Goals Pt goal is to not have pain, normal again. has 11 and 9 yo and wants to travel. No sensation, pain in heel - with way to take care. No pain with walking. Prior Functional Status Baseline Function- ADL's Independent Baseline Function- Mobility Independent Baseline Function- Work/School Building his deck, odd standing. Baseline Function- Recreation/Hobbies Worked in garden. Current Functional Impairments (Reported) Functional Limitations- ADL's Difficulty hauling his trash can up his driveway because the feet feel like he has been working all day. Functional Limitations- Mobility/Gait Weakness in legs; therefore not confident in gait. Clumsiness. Functional Limitations- Work/School Self employed. Functional Limitations- Recreation/ Does [employer] bike and yoga Hobbies daily. Personal Factors Other Personal Factors That May Effect Pt reports being very active Therapy/Recovery and is wanting to travel with his spouse and children ages 12 & 10. Back injury 10 yrs ago. Flattened arches requiring orthotics in shoes. PT-OP-C Subjective Start: 09/06/22 18:45 Freq: Status: Active Protocol: Document 12/06/22 11:19 LRN (Rec: 12/06/22 12:24 LRN [id number]) OP-PT Subjective Patient Comments Patient Comments Previous 2 weeks pt feeling everything is better than it was, but this week hasn't been so good. The difference was having nighttime activities with , it got his back going and he feels he needs to be more gentle. Did replanting trees and stopped self from doing more work and the next day he felt good. PT-OP-G Mobility & Gait Start: 09/06/22 18:45 Freq: Status: Active Protocol: Document 09/10/22 13:03 LRN (Rec: 09/10/22 19:20 LRN [id number]) OP Gait Assessment Gait Gait Assistance Required: Independent Able to Maintain Weight Bearing Status Yes During Gait Assistive Devices Assistive Device None Gait Deviations General Gait Pattern Flexed Trunk,Wide Based Gait Factors Limiting Gait Function Factors Limiting Gait Function Decreased Sensation,Decreased Strength,Pain Comments Gait Comments Pain in heels with heel strike . PT-OP-H Neuro Start: 09/06/22 18:45 Freq: Status: Active Protocol: Document 09/10/22 13:03 LRN (Rec: 09/10/22 19:20 LRN [id number]) Sensation Evaluation Gross Sensation Gross Sensation WNL,Left LE Impaired,Right LE Impaired Sensation Description Tingling,Pins & [place], Heaviness Comments Summary Comments Pt is able to feel light touch /firm pressure difference, and reports having normal sensation to hot/cold. Deep Tendon Reflex & Clonus Assessment Deep Tendon Reflex Bilateral Achilles Deep Tendon Reflex 2+ Normal PT-OP-J Posture/Palpation/Skin Start: 09/06/22 18:45 Freq: Status: Active Protocol: Document 09/14/22 13:04 LRN (Rec: 09/14/22 16:59 LRN [id number]) Palpation Assessment Location Medial Malleoli in supine Palpation Location Medial malleolus Palpation Details L leg is short/ R leg long. PT-OP-K Range of Motion Start: 09/06/22 18:45 Freq: Status: Active Protocol: Document 11/13/22 10:47 LRN (Rec: 11/13/22 12:39 LRN [id number]) Hip Goniometric Range of Motion Hip Right Passive Testing Position Supine Internal Rotation 20 External Rotation 70 Left Passive Testing Position Supine Internal Rotation 25 External Rotation 75 PT-OP-M Strength Start: 09/06/22 18:45 Freq: Status: Active Protocol: Document 09/18/22 13:03 LRN (Rec: 09/18/22 16:24 LRN [id number]) Trunk Strength Trunk Manual Muscle Testing Core Stabilization Pt has mild loss of core stability with MMT of LE's, especially with testing of R hip flexion (weak L trunk rot) . Hip Strength Hip Manual Muscle Testing Right Comments Generally 5/5 Left Extension (S1) 4 Good Adduction 3 Fair External Rotation 3+ Fair+ Comments Generally 5/5 except as indicated abovel PT-OP-Q Treatments Start: 09/06/22 18:45 Freq: Status: Active Protocol: Document 12/06/22 11:19 LRN (Rec: 12/06/22 12:24 LRN [id number]) Therapeutic Exercises Supine Exercises Ilipsoas stretch Supine Exercise Name Chencho test position from side of plinth and end of plinth Side bilateral Reps/Minutes 5' Manual Therapy Treatment Soft Tissue Mobilization Lumbar spine balancing Body Location L/S A/P of L1-L4 Mobilization Type Sustained Pressure Body Position Prone>Supine Self-Care/Home Management Treatment Education Other Education Discussed plan of care and possible return to therapy after cortisone injection. Reviewed importance of proper body mechanics and posturing. Discussed therapy focus to change after injection to core stab and further STM to improve trunk mobility. PT-OP-R Modalities Start: 09/06/22 18:45 Freq: Status: Active Protocol: Document 11/19/22 09:50 LRN (Rec: 11/19/22 10:55 LRN [id number]) Hot Pack/Cold Pack Treatment Cold Pack Location Lumbosacral region Patient Position Hooklying Treatment Duration (minutes) 10 Patient Tolerance Good Comments legs on bolster PT-OP-T Assessment and Plan Start: 09/06/22 18:45 Freq: Status: Active Protocol: Document 12/06/22 11:19 LRN (Rec: 12/06/22 12:24 LRN [id number]) Physical Therapy Assessment Rehab Potential Rehabilitation Potential Good Evaluation Complexity Number of Personal Factors/Comorbidities 3 or More Number of Body Systems Impaired 4 or More Clinical Presentation at Evaluation Evolving Impairments Impairments Activity Tolerance,Gait,Pain, Posture,Sensation,Soft Tissue Mobility,Strength Goals Three Impairment Heel pain with gait rated 2-3/ 10. Short Term Goal (STG) Improve hip rotational mobility (IR>ER) with lessening heel pain with gait. 11/08/22: L Heel pain comes/ goes during the day. 12/06/22: L heel pain 0-1/10. Accupuncture helped a lot. STG Duration 01/03/23 progression Stock Car Driver Goal (LTG) Pelvic symmetry and stability ex's with no heel pain when walking. 09/18/22: Pelvis symmetrical. Heel pain is in variable locations (inner and outer heel). 12/06/22: Level pelvis but deep on R ASIS. LTG Duration 02/04/23 partially met goal 09/18/22. Two Impairment Neuropathy of feet Impairment Sensation: Lyubov and wearing a wrinkled sock feeling worse in ball of feet and 1-3 digits of the toes, plantar surface. Short Term Goal (STG) Pt will be educated in proper body mechanics. STG Duration 10/26/22 (09/18/22: MET GOAL) Stock Car Driver Goal (LTG) Normalize sensation in the feet bilaterally. 10/02/22: End of treatment decrease sandyfeeling to toes 1-3 bilaterally. 10/18/22: RLE except toes has reduced lyubov feeling, less tingling. 11/15/22: Feet and thighs more normalization in feeling. 12/06/22: Last wk 80% better, this week 50% better, improvement towards normalization is variable. LTG Duration 02/04/23 Intermittent progression 10/18/22 One Impairment Lacks appropriate self care HEP. Short Term Goal (STG) Pt will be educated in proper posturing and use of home modalities for pain/sensation management. STG Duration 10/26/22 (09/18/22: MET GOAL) Longterm Goal (LTG) Pt goal is to not have pain, normal again. has 11 and 9 yo and wants to travel. No sensation, pain in heel - with way to take care. 09/14/22: I/S in TA strengthening. 12/06/22: Pain is annoying and rated constant 3/10. Not really pain, but intensity of electricity/dullness/numbness that goes up into the legs. Some days weak and some numbness sensation. Numbness sensation in legs have gone down. LTG Duration 02/04/23 progressing Assessment Summary Assessment Pt overall has improved with a combination of PT, accupuncture, and massage therapy. He is slowly improving in mobility, but further mobilization of his thoracic spine and hips would be beneficial to lessen the stress on his low back. His pelvic symmetry is improved with his innominates level in supine, but a posterior shift in the R innominate is noted; therefore pelvic instability is present. The pt is expecting to receive a cortisone injection soon and it is recommended that he hold on therapy for a couple of weeks after the injection with the pt continuing his self care HEP, then return for follow up of exercises and manual therapy to further improve his thoracic and hip ( primarily Iliopsoas) mobility and to progress the pt onto a home core strengthening program. The pt has very restricted mobility of his R trunk, that may be a hinderance in normalizing sensation and hip mobility on the R side if soft tissue mobilization is not able to improve symmetry of tissue mobility. The pt would benefit from continued physical therapy s/p cortisone injection to achieve the above stated goals. Physical Therapy Plan Frequency and Duration Frequency of Treatment 2x/Week Plan of Care Start Date 12/06/22 Plan of Care End Date 02/04/23 Therapeutic Interventions Therapeutic Interventions Gait Training,Home Exercise Program,Joint Mobilizations, Manual Therapy,Neuromuscular Re-education,Patient/Caregiver Education,Self-Care/Home Management,Soft Tissue Mobilization,Therapeutic Exercises Modalities Cold Pack/Ice Massage,Hot Packs,Ultrasound Next Visit Focus/Plan Next Note Type Treatment Note Next Visit Plan Issue HEP of prone hip IR stretch if available. Cont: Mobilization of his thoracic spine (thoracic spine to Improve T/S & high L/S jt mechanics avoiding L3-L4, L4- S1). Stretch Iliopsoas (?hip IR- DANIS, ?lumbar flex) Mobilization Correction of posterior shift in the R innominate. Progress Core (abdominal) stabilization for trunk flex. Pt to do contrast bath treatment to feet, ending with cold. Manual: No STM on days having accupuncture at accupuncturist's request. Pt to continue use of tilt table at home.
--- NOTE | 2023-01-18 17:44 | PT.OTN ---
Current Diagnoses Polyneuropathy, unspecified (01/18/23) Radiculopathy, site unspecified (01/18/23) Muscle weakness (generalized) (01/18/23) Abnormal posture (01/18/23) Other reduced mobility (01/18/23) Physical Therapy Treatment Note PT-OP-A Visit Information Start: 09/06/22 18:45 Freq: Status: Active Protocol: Document 01/18/23 09:06 LRN (Rec: 01/18/23 10:35 LRN [id number]) Out-Patient Physical Therapy Visit Information Visit Information Visit Type Progress Note Visit Start Time 09:06 Visit Stop Time 09:49 Total Visit Minutes 43 Visit Number total in 2022. Evaluation Information Evaluation Date 09/10/22 Precautions Precautions Inguinal Hernia-R front mesh. PT-OP-B Current Condition Start: 09/06/22 18:45 Freq: Status: Active Protocol: Document 09/10/22 13:03 LRN (Rec: 09/10/22 19:20 LRN [id number]) Current Condition History of Current Condition Onset Date Few months ago Current Complaints Sonny foot lyubov feeling and feeling of socks on feet. History of Current Condition Few months ago went for a walk wearing his orthotics and hurt his L heel. He took it easy and 3 weeks later he started to get neuropathy, a feeling of sandiness and sock on L foot. Now the neuropathy has started in his R foot. Denies foot pain. States he stands a lot with a wide spread stance. States he feels hot/cold, tickling, feels like bunched sock in toes and the tingling as if feet have fallen asleep, comes and goes with standing. States he has weakness in his legs. Does [employer]irdyne bike and yoga daily. 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 Future Testing and Treatments Planned 09/24/22: Digitizer Operator appt (Dr Emilia Hinton in ) 09/26/22: Accupuncture appt. Developmental History Developmental History Occasionally has had achilles tendonitis of L heel (pain on heel and outside of heel) and he would ice it. 10 yrs ago he was carrying his daughter, and she tried to throw herself onto the ground, causing him to quickly bend forward to keep from dropping her, since then he has had R thigh sensations (wet) and if he stands for excessive time his R thigh kang. When he worked, 16-18 hr days he had achy feet. Treatment Goals Patient/Caregiver Goals Pt goal is to not have pain, normal again. has 12 and 9 yo and wants to travel. No sensation, pain in heel - with way to take care. No pain with walking. Prior Functional Status Baseline Function- ADL's Independent Baseline Function- Mobility Independent Baseline Function- Work/School Building his deck, odd standing. Baseline Function- Recreation/Hobbies Worked in garden. Current Functional Impairments (Reported) Functional Limitations- ADL's Difficulty hauling his trash can up his driveway because the feet feel like he has been working all day. Functional Limitations- Mobility/Gait Weakness in legs; therefore not confident in gait. Clumsiness. Functional Limitations- Work/School Self employed. Functional Limitations- Recreation/ Does [employer]irdyne bike and yoga Hobbies daily. Personal Factors Other Personal Factors That May Effect Pt reports being very active Therapy/Recovery and is wanting to travel with his spouse and children ages 12 & 10. Back injury 10 yrs ago. Flattened arches requiring orthotics in shoes. PT-OP-C Subjective Start: 09/06/22 18:45 Freq: Status: Active Protocol: Document 01/18/23 09:06 LRN (Rec: 01/18/23 10:35 LRN [id number]) OP-PT Subjective Patient Comments Patient Comments 12/18/[address] Valdez ([facility]). Had painful injections in the back, got off the table and the L hip really hurt and made things regress 2-3 months, LE's felt like electric pudding with numbness around the crotch. 2 wks after injection everything felt still bad. Now feels better than post- injection, but not better than pre-injection. Smashed L big toe trying to put together an outdoor furniture, so may be broken; therefore limited in what yoga ex's he can do. Shoes are tight. 90% of L heel pain is gone due to accupuncture. Very mild numbness in legs; LE's feel pressure sensitive, sensation in foot is now more diffuse and less intense. Patient Reported Progress Worse PT-OP-G Mobility & Gait Start: 09/06/22 18:45 Freq: Status: Active Protocol: Document 09/10/22 13:03 LRN (Rec: 09/10/22 19:20 LRN [id number]) OP Gait Assessment Gait Gait Assistance Required: Independent Able to Maintain Weight Bearing Status Yes During Gait Assistive Devices Assistive Device None Gait Deviations General Gait Pattern Flexed Trunk,Wide Based Gait Factors Limiting Gait Function Factors Limiting Gait Function Decreased Sensation,Decreased Strength,Pain Comments Gait Comments Pain in heels with heel strike . PT-OP-H Neuro Start: 09/06/22 18:45 Freq: Status: Active Protocol: Document 09/10/22 13:03 LRN (Rec: 09/10/22 19:20 LRN [id number]) Sensation Evaluation Gross Sensation Gross Sensation WNL,Left LE Impaired,Right LE Impaired Sensation Description Tingling,Pins & [place], Heaviness Comments Summary Comments Pt is able to feel light touch /firm pressure difference, and reports having normal sensation to hot/cold. Deep Tendon Reflex & Clonus Assessment Deep Tendon Reflex Bilateral Achilles Deep Tendon Reflex 2+ Normal PT-OP-J Posture/Palpation/Skin Start: 09/06/22 18:45 Freq: Status: Active Protocol: Document 09/14/22 13:04 LRN (Rec: 09/14/22 16:59 LRN [id number]) Palpation Assessment Location Medial Malleoli in supine Palpation Location Medial malleolus Palpation Details L leg is short/ R leg long. PT-OP-K Range of Motion Start: 09/06/22 18:45 Freq: Status: Active Protocol: Document 01/18/23 09:06 LRN (Rec: 01/18/23 10:35 LRN [id number]) Hip Goniometric Range of Motion Hip Right Passive Testing Position Supine Internal Rotation 20 External Rotation 70 Left Passive Testing Position Supine Internal Rotation 15 External Rotation 80 PT-OP-M Strength Start: 09/06/22 18:45 Freq: Status: Active Protocol: Document 09/18/22 13:03 LRN (Rec: 09/18/22 16:24 LRN [id number]) Trunk Strength Trunk Manual Muscle Testing Core Stabilization Pt has mild loss of core stability with MMT of LE's, especially with testing of R hip flexion (weak L trunk rot) . Hip Strength Hip Manual Muscle Testing Right Comments Generally 5/5 Left Extension (S1) 4 Good Adduction 3 Fair External Rotation 3+ Fair+ Comments Generally 5/5 except as indicated abovel PT-OP-Q Treatments Start: 09/06/22 18:45 Freq: Status: Active Protocol: Document 01/18/23 09:06 LRN (Rec: 01/18/23 10:35 LRN [id number]) Therapeutic Exercises Supine Exercises Fig 4 stretch Supine Exercise Name Hip ER stretch Side bilateral Comments ROM taken Hip IR stretch Supine Exercise Name Hip IR stretch Side bilateral Comments ROM taken Other Exercises Thread the Needle Other Exercise Name Thread the Needle Side bilateral Reps/Minutes 2' Hands/knees Other Exercise Name Cat/cow Reps/Minutes 8' Comments Phys & v cuing needed. Manual Therapy Treatment Joint Mobilizations Thoracic spine Joint PA Thoracic Spine Direction PA, Rot Grade III Body Position Prone Reps/Duration 15' Self-Care/Home Management Treatment Education Other Education Discussed results of assessment, new goal that pt was agreeable to, and plan of care (POC). Pt agreeable to goals and POC. PT-OP-R Modalities Start: 09/06/22 18:45 Freq: Status: Active Protocol: Document 11/19/22 09:50 LRN (Rec: 11/19/22 10:55 LRN [id number]) Hot Pack/Cold Pack Treatment Cold Pack Location Lumbosacral region Patient Position Hooklying Treatment Duration (minutes) 10 Patient Tolerance Good Comments legs on bolster PT-OP-T Assessment and Plan Start: 09/06/22 18:45 Freq: Status: Active Protocol: Document 01/18/23 09:06 LRN (Rec: 01/18/23 10:35 N [id number]) Physical Therapy Assessment Rehab Potential Rehabilitation Potential Good Evaluation Complexity Number of Personal Factors/Comorbidities 3 or More Number of Body Systems Impaired 4 or More Clinical Presentation at Evaluation Evolving Impairments Impairments Activity Tolerance,Gait,Pain, Posture,Sensation,Soft Tissue Mobility,Strength Goals Three Impairment Heel pain with gait rated 2-3/ 10. Short Term Goal (STG) Improve hip rotational mobility (IR>ER) with lessening heel pain with gait. 11/08/22: L Heel pain comes/ goes during the day. 12/06/22: L heel pain 0-1/10. Accupuncture helped a lot. 01/18/23: 97% improved with Accupuncture. L heel pain 97 % gone, every now and then feel a twinge at the end of the day. Sometimes there, sometimes not. STG Duration 01/03/23 progression Senior Living Goal (LTG) Pelvic symmetry and stability ex's with no heel pain when walking. 09/18/22: Pelvis symmetrical. Heel pain is in variable locations (inner and outer heel). 12/06/22: Level pelvis but deep on R ASIS. 01/18/23: Pelvis is level. L heel pain 97% gone, every now and then feel a twinge at the end of the day. LTG Duration 02/04/23 partially met goal 09/18/22. Two Impairment Neuropathy of feet Impairment Sensation: Lyubov and wearing a wrinkled sock feeling worse in ball of feet and 1-3 digits of the toes, plantar surface. Short Term Goal (STG) Pt will be educated in proper body mechanics. STG Duration 10/26/22 (09/18/22: MET GOAL) Senior Living Goal (LTG) Normalize sensation in the feet bilaterally. 10/02/22: End of treatment decrease sandyfeeling to toes 1-3 bilaterally. 10/18/22: RLE except toes has reduced lyubov feeling, less tingling. 11/15/22: Feet and thighs more normalization in feeling. 12/06/22: Last wk 80% better, this week 50% better, improvement towards normalization is variable. 01/18/23: Lyubov feeling now a little more intense and in all toes and across the feet but in low amount vs in chicken feet present pattern. LTG Duration 02/04/23 Intermittent progression 10/18/22 One Impairment Lacks appropriate self care HEP. Short Term Goal (STG) Pt will be educated in proper posturing and use of home modalities for pain/sensation management. STG Duration 10/26/22 (09/18/22: MET GOAL) Senior Living Goal (LTG) UPDATED GOAL: Pt goal is to improve tolerance to wearing shoes on his feet all day without having to feel like he needs to immediately remove shoes once home. No sensation, pain in heel - with way to take care. 09/14/22: I/S in TA strengthening. 12/06/22: Pain is annoying and rated constant 3/10. Not really pain, but intensity of electricity/dullness/numbness that goes up into the legs. Some days weak and some numbness sensation. Numbness sensation in legs have gone down. LTG Duration 03/19/23 Assessment Summary Assessment Pt returns after 6 weeks, following reported cortisone injections in his low back. Pt is having more diffuse sensation changes in his feet and LE's, than his last visit. The pt's rotational hip mobility is unchanged on the right and less on the left by 10 deg's IR and 5 deg's ER. His heel pain has been much improved by accupuncture. His pelvic symmetry and leg length is normal and symmetrical. The pt will benefit from exercises and manual therapy to further improve his thoracic and hip mobility (iliopsoas and piriformis) and to progress the pt with a home core strengthening program. The pt 's restricted mobility of his R trunk was not assessed today , but will be the next therapy session. The pt would benefit from continued physical therapy s/p cortisone injection to work towards achieving the above stated goals. Physical Therapy Plan Frequency and Duration Frequency of Treatment 2x/Week Plan of Care Start Date 01/18/23 Plan of Care End Date 03/19/23 Therapeutic Interventions Therapeutic Interventions Gait Training,Home Exercise Program,Joint Mobilizations, Manual Therapy,Neuromuscular Re-education,Patient/Caregiver Education,Self-Care/Home Management,Soft Tissue Mobilization,Therapeutic Exercises Modalities Cold Pack/Ice Massage,Hot Packs,Ultrasound Next Visit Focus/Plan Next Note Type Treatment Note Next Visit Plan Assess for his restricted mobility of his R trunk. Q: LEFS & FAAM. Issue HEP of prone hip IR stretch if available. Cont: Mobilization of his thoracic spine (thoracic spine to Improve T/S & high L/S jt mechanics avoiding L3-L4, L4- S1). Stretch Iliopsoas & Piriformis w/neural glides (?hip IR-DANIS, ?lumbar flex) As needed: Mobilization Correction of posterior shift in the R innominate. Progress Core (abdominal) stabilization for trunk flex. Pt to do contrast bath treatment to feet, ending with cold. Manual: No STM on days having accupuncture at accupuncturist's request. Pt to continue use of tilt table at home.
--- NOTE | 2023-01-28 18:21 | PT.OTN ---
Current Diagnoses Polyneuropathy, unspecified (01/28/23) Radiculopathy, site unspecified (01/28/23) Muscle weakness (generalized) (01/28/23) Abnormal posture (01/28/23) Other reduced mobility (01/28/23) Physical Therapy Treatment Note PT-OP-A Visit Information Start: 09/06/22 18:45 Freq: Status: Active Protocol: Document 01/28/23 10:35 LRN (Rec: 01/28/23 11:17 LRN [id number]) Out-Patient Physical Therapy Visit Information Visit Information Visit Type Treatment Note Visit Note 7 after PN Visit Start Time 10:35 Visit Stop Time 11:16 Total Visit Minutes 41 Visit Number total in 2022. Evaluation Information Evaluation Date 09/10/22 Precautions Precautions Inguinal Hernia-R front mesh. PT-OP-B Current Condition Start: 09/06/22 18:45 Freq: Status: Active Protocol: Document 09/10/22 13:03 LRN (Rec: 09/10/22 19:20 LRN [id number]) Current Condition History of Current Condition Onset Date Few months ago Current Complaints Sonny foot lyubov feeling and feeling of socks on feet. History of Current Condition Few months ago went for a walk wearing his orthotics and hurt his L heel. He took it easy and 3 weeks later he started to get neuropathy, a feeling of sandiness and sock on L foot. Now the neuropathy has started in his R foot. Denies foot pain. States he stands a lot with a wide spread stance. States he feels hot/cold, tickling, feels like bunched sock in toes and the tingling as if feet have fallen asleep, comes and goes with standing. States he has weakness in his legs. Does [employer]irdyne bike and yoga daily. 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 Future Testing and Treatments Planned 09/24/22: Tank Carpenter appt (Dr Emilia Hinton in ) 09/26/22: Accupuncture appt. Developmental History Developmental History Occasionally has had achilles tendonitis of L heel (pain on heel and outside of heel) and he would ice it. 10 yrs ago he was carrying his daughter, and she tried to throw herself onto the ground, causing him to quickly bend forward to keep from dropping her, since then he has had R thigh sensations (wet) and if he stands for excessive time his R thigh kang. When he worked, 16-18 hr days he had achy feet. Treatment Goals Patient/Caregiver Goals Pt goal is to not have pain, normal again. has 12 and 9 yo and wants to travel. No sensation, pain in heel - with way to take care. No pain with walking. Prior Functional Status Baseline Function- ADL's Independent Baseline Function- Mobility Independent Baseline Function- Work/School Building his deck, odd standing. Baseline Function- Recreation/Hobbies Worked in garden. Current Functional Impairments (Reported) Functional Limitations- ADL's Difficulty hauling his trash can up his driveway because the feet feel like he has been working all day. Functional Limitations- Mobility/Gait Weakness in legs; therefore not confident in gait. Clumsiness. Functional Limitations- Work/School Self employed. Functional Limitations- Recreation/ Does [employer]irdyne bike and yoga Hobbies daily. Personal Factors Other Personal Factors That May Effect Pt reports being very active Therapy/Recovery and is wanting to travel with his spouse and children ages 12 & 10. Back injury 10 yrs ago. Flattened arches requiring orthotics in shoes. PT-OP-C Subjective Start: 09/06/22 18:45 Freq: Status: Active Protocol: Document 01/28/23 10:35 LRN (Rec: 01/28/23 11:17 LRN [id number]) OP-PT Subjective Patient Comments Patient Comments States he is better than last visit. The tone isn't has high, not as electrifying in feet, but still everywhere. Every night does yoga and goes all over gluts and sacrum. PT-OP-G Mobility & Gait Start: 09/06/22 18:45 Freq: Status: Active Protocol: Document 09/10/22 13:03 LRN (Rec: 09/10/22 19:20 LRN [id number]) OP Gait Assessment Gait Gait Assistance Required: Independent Able to Maintain Weight Bearing Status Yes During Gait Assistive Devices Assistive Device None Gait Deviations General Gait Pattern Flexed Trunk,Wide Based Gait Factors Limiting Gait Function Factors Limiting Gait Function Decreased Sensation,Decreased Strength,Pain Comments Gait Comments Pain in heels with heel strike . PT-OP-H Neuro Start: 09/06/22 18:45 Freq: Status: Active Protocol: Document 09/10/22 13:03 LRN (Rec: 09/10/22 19:20 LRN [id number]) Sensation Evaluation Gross Sensation Gross Sensation WNL,Left LE Impaired,Right LE Impaired Sensation Description Tingling,Pins & [place], Heaviness Comments Summary Comments Pt is able to feel light touch /firm pressure difference, and reports having normal sensation to hot/cold. Deep Tendon Reflex & Clonus Assessment Deep Tendon Reflex Bilateral Achilles Deep Tendon Reflex 2+ Normal PT-OP-J Posture/Palpation/Skin Start: 09/06/22 18:45 Freq: Status: Active Protocol: Document 09/14/22 13:04 LRN (Rec: 09/14/22 16:59 LRN [id number]) Palpation Assessment Location Medial Malleoli in supine Palpation Location Medial malleolus Palpation Details L leg is short/ R leg long. PT-OP-K Range of Motion Start: 09/06/22 18:45 Freq: Status: Active Protocol: Document 01/18/23 09:06 LRN (Rec: 01/18/23 10:35 LRN [id number]) Hip Goniometric Range of Motion Hip Right Passive Testing Position Supine Internal Rotation 20 External Rotation 70 Left Passive Testing Position Supine Internal Rotation 15 External Rotation 80 PT-OP-M Strength Start: 09/06/22 18:45 Freq: Status: Active Protocol: Document 09/18/22 13:03 LRN (Rec: 09/18/22 16:24 LRN [id number]) Trunk Strength Trunk Manual Muscle Testing Core Stabilization Pt has mild loss of core stability with MMT of LE's, especially with testing of R hip flexion (weak L trunk rot) . Hip Strength Hip Manual Muscle Testing Right Comments Generally 5/5 Left Extension (S1) 4 Good Adduction 3 Fair External Rotation 3+ Fair+ Comments Generally 5/5 except as indicated abovel PT-OP-Q Treatments Start: 09/06/22 18:45 Freq: Status: Active Protocol: Document 01/28/23 10:35 LRN (Rec: 01/28/23 11:17 LRN [id number]) Therapeutic Exercises Supine Exercises Ilipsoas stretch Supine Exercise Name Chencho test position from side of plinth and end of plinth Side bilateral Reps/Minutes 5' Fig 4 stretch Supine Exercise Name Hip ER stretch Side bilateral Comments ROM taken Hip IR stretch Supine Exercise Name Hip IR stretch Side bilateral Comments ROM taken Lateral Hip stretch Supine Exercise Name Lateral hip stretch Side right Reps/Minutes 2x Comments Extra time for review Piriformis stretch Supine Exercise Name Piriformis stretch Side right Reps/Minutes 2x Comments Followed by C/R stretch & active stretch. Manual Therapy Treatment Soft Tissue Mobilization Coccygeus Body Location L>R Coccyxgeus ms Mobilization Type Sustained Pressure,Trigger Point Release Intensity/Depth Moderate Body Position Prone Comments Slow to release. Hip Internal Rotators Body Location DANIS stretch into bilateral hip IR (R>L) Intensity/Depth Moderate Body Position Prone Comments R hip ms mildly tighter than L . R Hip Body Location Sonny (R>L) Gluteal, L lateral glut Mobilization Type Strumming Intensity/Depth Moderate Body Position Prone Sacrum Body Location R lateral border of Sacrum Mobilization Type Sustained Pressure Body Position Prone Comments Gentle PA to correct R rotation. R QL Body Location R QL Mobilization Type Strumming Intensity/Depth Moderate Body Position Prone Joint Mobilizations Thoracic spine Joint PA Thoracic Spine Direction PA, Rot Grade III Body Position Prone Reps/Duration 15' PT-OP-R Modalities Start: 09/06/22 18:45 Freq: Status: Active Protocol: Document 11/19/22 09:50 LRN (Rec: 11/19/22 10:55 LRN [id number]) Hot Pack/Cold Pack Treatment Cold Pack Location Lumbosacral region Patient Position Hooklying Treatment Duration (minutes) 10 Patient Tolerance Good Comments legs on bolster PT-OP-T Assessment and Plan Start: 09/06/22 18:45 Freq: Status: Active Protocol: Document 01/28/23 10:35 LRN (Rec: 01/28/23 11:17 LRN [id number]) Physical Therapy Assessment Goals Three Impairment Heel pain with gait rated 2-3/ 10. Short Term Goal (STG) Improve hip rotational mobility (IR>ER) with lessening heel pain with gait. 11/08/22: L Heel pain comes/ goes during the day. 12/06/22: L heel pain 0-1/10. Accupuncture helped a lot. 01/18/23: 97% improved with Accupuncture. L heel pain 97 % gone, every now and then feel a twinge at the end of the day. Sometimes there, sometimes not. STG Duration 01/03/23 progression Brusher Machine Goal (LTG) Pelvic symmetry and stability ex's with no heel pain when walking. 09/18/22: Pelvis symmetrical. Heel pain is in variable locations (inner and outer heel). 12/06/22: Level pelvis but deep on R ASIS. 01/18/23: Pelvis is level. L heel pain 97% gone, every now and then feel a twinge at the end of the day. LTG Duration 02/04/23 partially met goal 09/18/22. Two Impairment Neuropathy of feet Impairment Sensation: Lyubov and wearing a wrinkled sock feeling worse in ball of feet and 1-3 digits of the toes, plantar surface. Short Term Goal (STG) Pt will be educated in proper body mechanics. STG Duration 10/26/22 (09/18/22: MET GOAL) Nursing Home Goal (LTG) Normalize sensation in the feet bilaterally. 10/02/22: End of treatment decrease sandyfeeling to toes 1-3 bilaterally. 10/18/22: RLE except toes has reduced lyubov feeling, less tingling. 11/15/22: Feet and thighs more normalization in feeling. 12/06/22: Last wk 80% better, this week 50% better, improvement towards normalization is variable. 01/18/23: Lyubov feeling now a little more intense and in all toes and across the feet but in low amount vs in chicken feet present pattern. LTG Duration 02/04/23 Intermittent progression 10/18/22 One Impairment Lacks appropriate self care HEP. Short Term Goal (STG) Pt will be educated in proper posturing and use of home modalities for pain/sensation management. STG Duration 10/26/22 (09/18/22: MET GOAL) Nursing Home Goal (LTG) UPDATED GOAL: Pt goal is to improve tolerance to wearing shoes on his feet all day without having to feel like he needs to immediately remove shoes once home. No sensation, pain in heel - with way to take care. 09/14/22: I/S in TA strengthening. 12/06/22: Pain is annoying and rated constant 3/10. Not really pain, but intensity of electricity/dullness/numbness that goes up into the legs. Some days weak and some numbness sensation. Numbness sensation in legs have gone down. LTG Duration 03/19/23 Assessment Summary Assessment Tight L Thoracic paraspinals and L>R coccygeus muscles. Gluteals don't appear to be too tight, but pt is very sensitive to pressure with c/o active TrP's. Pt symptoms indicate possible L/S or sciatic n. pain in gluts causing neurological sensation changes in LE's. Physical Therapy Plan Frequency and Duration Frequency of Treatment 2x/Week Plan of Care Start Date 01/18/23 Plan of Care End Date 03/19/23 Next Visit Focus/Plan Next Note Type Treatment Note Next Visit Plan Q: LEFS & FAAM. Assess for his restricted mobility of his R trunk. Issue HEP of prone hip IR stretch if available. Cont: Mobilization of his thoracic spine (thoracic spine to Improve T/S & high L/S jt mechanics avoiding L3-L4, L4- S1). Stretch Iliopsoas & Piriformis w/neural glides (?hip IR-DANIS, ?lumbar flex) As needed: Mobilization Correction of posterior shift in the R innominate. Progress Core (abdominal) stabilization for trunk flex. Pt to do contrast bath treatment to feet, ending with cold. Manual: No STM on days having accupuncture at accupuncturist's request. Pt to continue use of tilt table at home.
--- NOTE | 2023-01-31 15:15 | PT.OTN ---
Current Diagnoses Polyneuropathy, unspecified (01/31/23) Radiculopathy, site unspecified (01/31/23) Muscle weakness (generalized) (01/31/23) Abnormal posture (01/31/23) Other reduced mobility (01/31/23) Physical Therapy Treatment Note PT-OP-A Visit Information Start: 09/06/22 18:45 Freq: Status: Active Protocol: Document 01/31/23 09:55 LRN (Rec: 01/31/23 10:38 LRN [id number]) Out-Patient Physical Therapy Visit Information Visit Information Visit Type Treatment Note Visit Note 8 after PN Visit Start Time 09:53 Visit Stop Time 10:32 Total Visit Minutes 39 Visit Number total in 2022. Evaluation Information Evaluation Date 09/10/22 Precautions Precautions Inguinal Hernia-R front mesh. PT-OP-B Current Condition Start: 09/06/22 18:45 Freq: Status: Active Protocol: Document 09/10/22 13:03 LRN (Rec: 09/10/22 19:20 LRN [id number]) Current Condition History of Current Condition Onset Date Few months ago Current Complaints Sonny foot lyubov feeling and feeling of socks on feet. History of Current Condition Few months ago went for a walk wearing his orthotics and hurt his L heel. He took it easy and 3 weeks later he started to get neuropathy, a feeling of sandiness and sock on L foot. Now the neuropathy has started in his R foot. Denies foot pain. States he stands a lot with a wide spread stance. States he feels hot/cold, tickling, feels like bunched sock in toes and the tingling as if feet have fallen asleep, comes and goes with standing. States he has weakness in his legs. Does [employer] bike and yoga daily. 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 Future Testing and Treatments Planned 09/24/22: Finance Officer appt (Dr Emilia Hinton in ) 09/26/22: Accupuncture appt. Developmental History Developmental History Occasionally has had achilles tendonitis of L heel (pain on heel and outside of heel) and he would ice it. 10 yrs ago he was carrying his daughter, and she tried to throw herself onto the ground, causing him to quickly bend forward to keep from dropping her, since then he has had R thigh sensations (wet) and if he stands for excessive time his R thigh kang. When he worked, 16-18 hr days he had achy feet. Treatment Goals Patient/Caregiver Goals Pt goal is to not have pain, normal again. has 12 and 10 yo and wants to travel. No sensation, pain in heel - with way to take care. No pain with walking. Prior Functional Status Baseline Function- ADL's Independent Baseline Function- Mobility Independent Baseline Function- Work/School Building his deck, odd standing. Baseline Function- Recreation/Hobbies Worked in garden. Current Functional Impairments (Reported) Functional Limitations- ADL's Difficulty hauling his trash can up his driveway because the feet feel like he has been working all day. Functional Limitations- Mobility/Gait Weakness in legs; therefore not confident in gait. Clumsiness. Functional Limitations- Work/School Self employed. Functional Limitations- Recreation/ Does [employer] bike and yoga Hobbies daily. Personal Factors Other Personal Factors That May Effect Pt reports being very active Therapy/Recovery and is wanting to travel with his spouse and children ages 12 & 10. Back injury 10 yrs ago. Flattened arches requiring orthotics in shoes. PT-OP-C Subjective Start: 09/06/22 18:45 Freq: Status: Active Protocol: Document 01/31/23 09:55 LRN (Rec: 01/31/23 10:38 LRN [id number]) OP-PT Subjective Patient Comments Patient Comments R foot and leg has opened up tremendously. Almost back to full on chicken foot like before the shot. Tues woke with the change. R foot is much better, the L is a little better. PT-OP-G Mobility & Gait Start: 09/06/22 18:45 Freq: Status: Active Protocol: Document 09/10/22 13:03 LRN (Rec: 09/10/22 19:20 LRN [id number]) OP Gait Assessment Gait Gait Assistance Required: Independent Able to Maintain Weight Bearing Status Yes During Gait Assistive Devices Assistive Device None Gait Deviations General Gait Pattern Flexed Trunk,Wide Based Gait Factors Limiting Gait Function Factors Limiting Gait Function Decreased Sensation,Decreased Strength,Pain Comments Gait Comments Pain in heels with heel strike . PT-OP-H Neuro Start: 09/06/22 18:45 Freq: Status: Active Protocol: Document 09/10/22 13:03 LRN (Rec: 09/10/22 19:20 LRN [id number]) Sensation Evaluation Gross Sensation Gross Sensation WNL,Left LE Impaired,Right LE Impaired Sensation Description Tingling,[place], Heaviness Comments Summary Comments Pt is able to feel light touch /firm pressure difference, and reports having normal sensation to hot/cold. Deep Tendon Reflex & Clonus Assessment Deep Tendon Reflex Bilateral Achilles Deep Tendon Reflex 2+ Normal PT-OP-J Posture/Palpation/Skin Start: 09/06/22 18:45 Freq: Status: Active Protocol: Document 09/14/22 13:04 LRN (Rec: 09/14/22 16:59 LRN [id number]) Palpation Assessment Location Medial Malleoli in supine Palpation Location Medial malleolus Palpation Details L leg is short/ R leg long. PT-OP-K Range of Motion Start: 09/06/22 18:45 Freq: Status: Active Protocol: Document 01/18/23 09:06 LRN (Rec: 01/18/23 10:35 LRN [id number]) Hip Goniometric Range of Motion Hip Right Passive Testing Position Supine Internal Rotation 20 External Rotation 70 Left Passive Testing Position Supine Internal Rotation 15 External Rotation 80 PT-OP-M Strength Start: 09/06/22 18:45 Freq: Status: Active Protocol: Document 09/18/22 13:03 LRN (Rec: 09/18/22 16:24 LRN [id number]) Trunk Strength Trunk Manual Muscle Testing Core Stabilization Pt has mild loss of core stability with MMT of LE's, especially with testing of R hip flexion (weak L trunk rot) . Hip Strength Hip Manual Muscle Testing Right Comments Generally 5/5 Left Extension (S1) 4 Good Adduction 3 Fair External Rotation 3+ Fair+ Comments Generally 5/5 except as indicated abovel PT-OP-Q Treatments Start: 09/06/22 18:45 Freq: Status: Active Protocol: Document 01/31/23 09:55 LRN (Rec: 01/31/23 10:38 LRN [id number]) Therapeutic Exercises Supine Exercises Hip Depression/QL stretch Supine Exercise Name Assisted Hip Depression/QL stretch Side bilateral Reps/Minutes 10x each Ilipsoas stretch Supine Exercise Name Chencho test position from side of plinth and end of plinth Side bilateral Reps/Minutes 5' Fig 4 stretch Supine Exercise Name Hip ER stretch Side bilateral Comments ROM taken Trunk rot stretch Supine Exercise Name Small Trunk Rots Side bilateral Reps/Minutes 10x 2 Lateral Hip stretch Supine Exercise Name wMH/Lateral hip stretch Side right Reps/Minutes 2x Comments Extra time for review Piriformis stretch Supine Exercise Name wCP/Piriformis stretch Side right Reps/Minutes 2x Comments Followed by C/R stretch & active stretch. Manual Therapy Treatment Soft Tissue Mobilization Coccygeus Body Location L>R Coccyxgeus ms Mobilization Type Sustained Pressure,Trigger Point Release Intensity/Depth Moderate Body Position Prone Comments Slow to release. Hip Internal Rotators Body Location DANIS stretch into bilateral hip IR (R>L) Intensity/Depth Moderate Body Position Prone Comments R hip ms mildly tighter than L . R Hip Body Location Sonny (R>L) Gluteal, L lateral glut Mobilization Type Strumming Intensity/Depth Moderate Body Position Prone Sacrum Body Location R lateral border of Sacrum Mobilization Type Sustained Pressure Body Position Prone Comments Gentle PA to correct R rotation. Self-Care/Home Management Treatment Education Other Education Pt educated in nighttime positions that would be best positioning for his back care limiting lumbar ext and excessive rot/SB. Activities Self-Care/Home Management Activities Issued handout for Orthopedic considerations for Sexual Activity to best protect his back and LE neural changes. PT-OP-R Modalities Start: 09/06/22 18:45 Freq: Status: Active Protocol: Document 11/19/22 09:50 LRN (Rec: 11/19/22 10:55 LRN [id number]) Hot Pack/Cold Pack Treatment Cold Pack Location Lumbosacral region Patient Position Hooklying Treatment Duration (minutes) 10 Patient Tolerance Good Comments legs on bolster PT-OP-T Assessment and Plan Start: 09/06/22 18:45 Freq: Status: Active Protocol: Document 01/31/23 09:55 LRN (Rec: 01/31/23 10:38 LRN [id number]) Physical Therapy Assessment Goals Three Impairment Heel pain with gait rated 2-3/ 10. Short Term Goal (STG) Improve hip rotational mobility (IR>ER) with lessening heel pain with gait. 11/08/22: L Heel pain comes/ goes during the day. 12/06/22: L heel pain 0-1/10. Accupuncture helped a lot. 01/18/23: 97% improved with Accupuncture. L heel pain 97 % gone, every now and then feel a twinge at the end of the day. Sometimes there, sometimes not. STG Duration 01/03/23 progression Custodial Goal (LTG) Pelvic symmetry and stability ex's with no heel pain when walking. 09/18/22: Pelvis symmetrical. Heel pain is in variable locations (inner and outer heel). 12/06/22: Level pelvis but deep on R ASIS. 01/18/23: Pelvis is level. L heel pain 97% gone, every now and then feel a twinge at the end of the day. LTG Duration 02/04/23 partially met goal 09/18/22. Two Impairment Neuropathy of feet Impairment Sensation: Lyubov and wearing a wrinkled sock feeling worse in ball of feet and 1-3 digits of the toes, plantar surface. Short Term Goal (STG) Pt will be educated in proper body mechanics. STG Duration 10/26/22 (09/18/22: MET GOAL) Senior J2E[employer] Developer Goal (LTG) Normalize sensation in the feet bilaterally. 10/02/22: End of treatment decrease sandyfeeling to toes 1-3 bilaterally. 10/18/22: RLE except toes has reduced lyubov feeling, less tingling. 11/15/22: Feet and thighs more normalization in feeling. 01/31/23: Improvement in feeling of feet noted. 12/06/22: Last wk 80% better, this week 50% better, improvement towards normalization is variable. 01/18/23: Lyubov feeling now a little more intense and in all toes and across the feet but in low amount vs in chicken feet present pattern. LTG Duration 02/04/23 Intermittent progression 01/31/23 One Impairment Lacks appropriate self care HEP. Short Term Goal (STG) Pt will be educated in proper posturing and use of home modalities for pain/sensation management. STG Duration 10/26/22 (09/18/22: MET GOAL) Senior J2Ee Developer Goal (LTG) UPDATED GOAL: Pt goal is to improve tolerance to wearing shoes on his feet all day without having to feel like he needs to immediately remove shoes once home. No sensation, pain in heel - with way to take care. 11/18/22: I/S in TA strengthening. 12/06/22: Pain is annoying and rated constant 3/10. Not really pain, but intensity of electricity/dullness/numbness that goes up into the legs. Some days weak and some numbness sensation. Numbness sensation in legs have gone down. LTG Duration 03/19/23 Assessment Summary Assessment Improved sensation change in R foot and mildly in L foot. Pt's L>R coccygeal ms are tight. R QL and lateral hip ms. Not able to do STM to L thoracic paraspinals due to time constraint. Pt tolerated stretch to R lateral hip with small active mvmts of knee flex/ext, hip IR/ER, and ankle IV/EV. Physical Therapy Plan Frequency and Duration Frequency of Treatment 2x/Week Plan of Care Start Date 01/18/23 Plan of Care End Date 03/19/23 Next Visit Focus/Plan Next Note Type Treatment Note Next Visit Plan If pt hasn't brought in Q: Redo LEFS & FAAM. Assess for his restricted mobility of his R trunk. Issue HEP of prone hip IR stretch if available. Assess response to stretches with hot/cold treatment applied. Cont: Mobilization of his thoracic spine (thoracic spine to Improve T/S & high L/S jt mechanics avoiding L3-L4, L4- S1). Stretch Iliopsoas & Piriformis w/neural glides (?hip IR-DANIS, ?lumbar flex) As needed: Mobilization Correction of posterior shift in the R innominate. Progress Core (abdominal) stabilization for trunk flex. Pt to do contrast bath treatment to feet, ending with cold. Manual: No STM on days having accupuncture at accupuncturist's request. Pt to continue use of tilt table at home.
--- NOTE | 2023-02-04 12:43 | PT.OTN ---
Current Diagnoses Polyneuropathy, unspecified (02/04/23) Radiculopathy, site unspecified (02/04/23) Muscle weakness (generalized) (02/04/23) Abnormal posture (02/04/23) Other reduced mobility (02/04/23) Physical Therapy Treatment Note PT-OP-A Visit Information Start: 09/06/22 18:45 Freq: Status: Active Protocol: Document 02/04/23 10:21 LRN (Rec: 02/04/23 12:41 LRN [id number]) Out-Patient Physical Therapy Visit Information Visit Information Visit Type Treatment Note Visit Note 9 after PN Visit Start Time 11:21 Visit Stop Time 12:09 Total Visit Minutes 48 Visit Number total in 2022. Evaluation Information Evaluation Date 09/10/22 Precautions Precautions Inguinal Hernia-R front mesh. PT-OP-B Current Condition Start: 09/06/22 18:45 Freq: Status: Active Protocol: Document 09/10/22 13:03 LRN (Rec: 09/10/22 19:20 LRN [id number]) Current Condition History of Current Condition Onset Date Few months ago Current Complaints Sonny foot lyubov feeling and feeling of socks on feet. History of Current Condition Few months ago went for a walk wearing his orthotics and hurt his L heel. He took it easy and 3 weeks later he started to get neuropathy, a feeling of sandiness and sock on L foot. Now the neuropathy has started in his R foot. Denies foot pain. States he stands a lot with a wide spread stance. States he feels hot/cold, tickling, feels like bunched sock in toes and the tingling as if feet have fallen asleep, comes and goes with standing. States he has weakness in his legs. Does Airdyne bike and yoga daily. 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 Future Testing and Treatments Planned 09/24/22: Pickle Sorter appt (Dr Emilia Hinton in ) 09/26/22: Accupuncture appt. Developmental History Developmental History Occasionally has had achilles tendonitis of L heel (pain on heel and outside of heel) and he would ice it. 10 yrs ago he was carrying his daughter, and she tried to throw herself onto the ground, causing him to quickly bend forward to keep from dropping her, since then he has had R thigh sensations (wet) and if he stands for excessive time his R thigh kang. When he worked, 16-18 hr days he had achy feet. Treatment Goals Patient/Caregiver Goals Pt goal is to not have pain, normal again. has 12 and 10 yo and wants to travel. No sensation, pain in heel - with way to take care. No pain with walking. Prior Functional Status Baseline Function- ADL's Independent Baseline Function- Mobility Independent Baseline Function- Work/School Building his deck, odd standing. Baseline Function- Recreation/Hobbies Worked in garden. Current Functional Impairments (Reported) Functional Limitations- ADL's Difficulty hauling his trash can up his driveway because the feet feel like he has been working all day. Functional Limitations- Mobility/Gait Weakness in legs; therefore not confident in gait. Clumsiness. Functional Limitations- Work/School Self employed. Functional Limitations- Recreation/ Does [employer]irdyne bike and yoga Hobbies daily. Personal Factors Other Personal Factors That May Effect Pt reports being very active Therapy/Recovery and is wanting to travel with his spouse and children ages 12 & 10. Back injury 10 yrs ago. Flattened arches requiring orthotics in shoes. PT-OP-C Subjective Start: 09/06/22 18:45 Freq: Status: Active Protocol: Document 02/04/23 10:21 LRN (Rec: 02/04/23 12:41 LRN [id number]) OP-PT Subjective Patient Comments Patient Comments Legs feel a little heavy, the foot is normal except toes 1-4 from MTP distally. Burning in the R lateral thigh is back and comes on faster (same area as when he felt wet after his daughter jumped on him). Accupressursit is working on the back and buttocks, just not in the sacral region. States his buttocks are not always sore. Patient Questionnaires Foot & Ankle Ability Measure- ADL and Sports FAAM-ADL Score 68 FAAM-ADL Impairment 20 to 39% Impaired (Score 50- 66) Lower Extremity Functional Scale LEFS Score 51 LEFS Impairment 20 to 39% Impaired (Score 48- 62) PT-OP-G Mobility & Gait Start: 09/06/22 18:45 Freq: Status: Active Protocol: Document 09/10/22 13:03 LRN (Rec: 09/10/22 19:20 LRN [id number]) OP Gait Assessment Gait Gait Assistance Required: Independent Able to Maintain Weight Bearing Status Yes During Gait Assistive Devices Assistive Device None Gait Deviations General Gait Pattern Flexed Trunk,Wide Based Gait Factors Limiting Gait Function Factors Limiting Gait Function Decreased Sensation,Decreased Strength,Pain Comments Gait Comments Pain in heels with heel strike . PT-OP-H Neuro Start: 09/06/22 18:45 Freq: Status: Active Protocol: Document 09/10/22 13:03 LRN (Rec: 09/10/22 19:20 LRN [id number]) Sensation Evaluation Gross Sensation Gross Sensation WNL,Left LE Impaired,Right LE Impaired Sensation Description Tingling,P[place] & [place], Heaviness Comments Summary Comments Pt is able to feel light touch /firm pressure difference, and reports having normal sensation to hot/cold. Deep Tendon Reflex & Clonus Assessment Deep Tendon Reflex Bilateral Achilles Deep Tendon Reflex 2+ Normal PT-OP-J Posture/Palpation/Skin Start: 09/06/22 18:45 Freq: Status: Active Protocol: Document 09/14/22 13:04 LRN (Rec: 09/14/22 16:59 LRN [id number]) Palpation Assessment Location Medial Malleoli in supine Palpation Location Medial malleolus Palpation Details L leg is short/ R leg long. PT-OP-K Range of Motion Start: 09/06/22 18:45 Freq: Status: Active Protocol: Document 01/18/23 09:06 LRN (Rec: 01/18/23 10:35 LRN [id number]) Hip Goniometric Range of Motion Hip Right Passive Testing Position Supine Internal Rotation 20 External Rotation 70 Left Passive Testing Position Supine Internal Rotation 15 External Rotation 80 PT-OP-M Strength Start: 09/06/22 18:45 Freq: Status: Active Protocol: Document 09/18/22 13:03 LRN (Rec: 09/18/22 16:24 LRN [id number]) Trunk Strength Trunk Manual Muscle Testing Core Stabilization Pt has mild loss of core stability with MMT of LE's, especially with testing of R hip flexion (weak L trunk rot) . Hip Strength Hip Manual Muscle Testing Right Comments Generally 5/5 Left Extension (S1) 4 Good Adduction 3 Fair External Rotation 3+ Fair+ Comments Generally 5/5 except as indicated abovel PT-OP-Q Treatments Start: 09/06/22 18:45 Freq: Status: Active Protocol: Document 02/04/23 10:21 LRN (Rec: 02/04/23 12:41 LRN [id number]) Therapeutic Exercises Supine Exercises Ilipsoas stretch Supine Exercise Name Chencho test position from side of plinth and end of plinth Side bilateral Reps/Minutes 5' PROM hips Supine Exercise Name PROM hips ER/IR stretching Side right Lateral Hip stretch Supine Exercise Name wMH/Lateral hip stretch Side right Reps/Minutes 2x Comments Extra time for review Piriformis stretch Supine Exercise Name wCP/Piriformis stretch Side right Reps/Minutes 2x Comments Followed by C/R stretch & active stretch. Prone Exercises Up on elbows/thoracic ext Prone Exercise Name IDA with thoracic ext Reps/Minutes 5' Sitting Exercises Sciatic n glides Sitting Exercise Name Kick the Head> kick head off> kick head Reps/Minutes 5x each Comments Extra time needed for coordination of exercie. Manual Therapy Treatment Soft Tissue Mobilization Coccygeus Body Location L>R Coccyxgeus ms Mobilization Type Sustained Pressure,Trigger Point Release Intensity/Depth Moderate Body Position Prone Comments Slow to release. Hip Internal Rotators Body Location DANIS stretch into bilateral hip IR (R>L) Intensity/Depth Moderate Body Position Prone Comments R hip ms mildly tighter than L . R Hip Body Location Upper gluteal Mobilization Type Strumming Intensity/Depth Moderate Body Position Prone Comments Upper Gluteal at level of PSIS caused onset of radiating R lateral thigh pain and bottom of foot pain that was relieved when stopping STM. Sacrum Body Location L lateral border of sacrum, PA pressure applied Mobilization Type Sustained Pressure Body Position Prone Comments PA to correct L rot PT-OP-R Modalities Start: 09/06/22 18:45 Freq: Status: Active Protocol: Document 11/19/22 09:50 LRN (Rec: 11/19/22 10:55 LRN [id number]) Hot Pack/Cold Pack Treatment Cold Pack Location Lumbosacral region Patient Position Hooklying Treatment Duration (minutes) 10 Patient Tolerance Good Comments legs on bolster PT-OP-T Assessment and Plan Start: 09/06/22 18:45 Freq: Status: Active Protocol: Document 02/04/23 10:21 LRN (Rec: 02/04/23 12:41 LRN [id number]) Physical Therapy Assessment Goals Three Impairment Heel pain with gait rated 2-3/ 10. Short Term Goal (STG) Improve hip rotational mobility (IR>ER) with lessening heel pain with gait. 11/08/22: L Heel pain comes/ goes during the day. 12/06/22: L heel pain 0-1/10. Accupuncture helped a lot. 01/18/23: 97% improved with Accupuncture. L heel pain 97 % gone, every now and then feel a twinge at the end of the day. Sometimes there, sometimes not. STG Duration 01/03/23 progression Shelter Goal (LTG) Pelvic symmetry and stability ex's with no heel pain when walking. 09/18/22: Pelvis symmetrical. Heel pain is in variable locations (inner and outer heel). 12/06/22: Level pelvis but deep on R ASIS. 01/18/23: Pelvis is level. L heel pain 97% gone, every now and then feel a twinge at the end of the day. LTG Duration 02/04/23 partially met goal 09/18/22. Two Impairment Neuropathy of feet Impairment Sensation: Lyubov and wearing a wrinkled sock feeling worse in ball of feet and 1-3 digits of the toes, plantar surface. Short Term Goal (STG) Pt will be educated in proper body mechanics. STG Duration 10/26/22 (09/18/22: MET GOAL) Electric Meter Repairer Apprentice Goal (LTG) Normalize sensation in the feet bilaterally. 10/02/22: End of treatment decrease sandyfeeling to toes 1-3 bilaterally. 10/18/22: RLE except toes has reduced lyubov feeling, less tingling. 11/15/22: Feet and thighs more normalization in feeling. 01/31/23: Improvement in feeling of feet noted. 12/06/22: Last wk 80% better, this week 50% better, improvement towards normalization is variable. 01/18/23: Lyubov feeling now a little more intense and in all toes and across the feet but in low amount vs in chicken feet present pattern. LTG Duration 02/04/23 Intermittent progression 01/31/23 One Impairment Lacks appropriate self care HEP. Short Term Goal (STG) Pt will be educated in proper posturing and use of home modalities for pain/sensation management. STG Duration 10/26/22 (09/18/22: MET GOAL) Electric Meter Repairer Apprentice Goal (LTG) UPDATED GOAL: Pt goal is to improve tolerance to wearing shoes on his feet all day without having to feel like he needs to immediately remove shoes once home. No sensation, pain in heel - with way to take care. 09/14/22: I/S in TA strengthening. 12/06/22: Pain is annoying and rated constant 3/10. Not really pain, but intensity of electricity/dullness/numbness that goes up into the legs. Some days weak and some numbness sensation. Numbness sensation in legs have gone down. LTG Duration 03/19/23 Assessment Summary Assessment Pt comes in with lessening of symptoms of the R foot. Onset of radiating R lateral thigh burning pain and dorsum of toes sensation changes (also center of plantar aspect of middle of foot) onset with STM of R Upper Gluteals at the level of the PSIS. Return to baseline with stopping of STM. Pt L5-S1 and sacrum/coccyx, appeared L rotated. Pt had sock sensation with kick the head ex with ankle DF, but not when ankle relaxed; no sensation change with neural slider, only tensioner. Pt can tolerate (no sensation changes) if sitting on edge of plinth without pressure/ support of thighs. Worsened functional score per LEFs & FAAM. LEFS is 41 (40-59% impaired, score 32-47), previously was 66 (1-19% impaired, score 63-79). FAAM functional score is 51 (20-39% impaired, score 50-66), was 66 (1-19% impaired, score 67- 83). Physical Therapy Plan Frequency and Duration Frequency of Treatment 2x/Week Plan of Care Start Date 01/18/23 Plan of Care End Date 03/19/23 Next Visit Focus/Plan Next Note Type Progress Note Next Visit Plan Assess for PN. Assess response to limited movement of LE neural glides, if worsened, DC ex, and response to stretches wile hot/cold treatment applied. Assess for his restricted mobility of his R trunk. Issue HEP of prone hip IR stretch if available. Cont: Mobilization of his thoracic spine (thoracic spine to Improve T/S & high L/S jt mechanics avoiding L3-L4, L4- S1). Stretch Iliopsoas & Piriformis w/neural glides (?hip IR-DANIS, ?lumbar flex) As needed: Mobilization Correction of posterior shift in the R innominate. Progress Core (abdominal) stabilization for trunk flex. Pt to do contrast bath treatment to feet, ending with cold. Manual: No STM on days having accupuncture at accupuncturist's request. Pt to continue use of tilt table at home.
--- NOTE | 2023-02-07 20:11 | PT.OTN ---
Current Diagnoses Polyneuropathy, unspecified (02/07/23) Radiculopathy, site unspecified (02/07/23) Muscle weakness (generalized) (02/07/23) Abnormal posture (02/07/23) Other reduced mobility (02/07/23) Physical Therapy Treatment Note PT-OP-A Visit Information Start: 09/06/22 18:45 Freq: Status: Active Protocol: Document 02/07/23 11:28 LRN (Rec: 02/07/23 12:26 LRN [id number]) Out-Patient Physical Therapy Visit Information Visit Information Visit Type Treatment Note Visit Note 10 after PN Visit Start Time 11:28 Visit Stop Time 12:06 Total Visit Minutes 38 Visit Number total in 2022. Evaluation Information Evaluation Date 09/10/22 Precautions Precautions Inguinal Hernia-R front mesh. PT-OP-B Current Condition Start: 09/06/22 18:45 Freq: Status: Active Protocol: Document 09/10/22 13:03 LRN (Rec: 09/10/22 19:20 LRN [id number]) Current Condition History of Current Condition Onset Date Few months ago Current Complaints Sonny foot lyubov feeling and feeling of socks on feet. History of Current Condition Few months ago went for a walk wearing his orthotics and hurt his L heel. He took it easy and 3 weeks later he started to get neuropathy, a feeling of sandiness and sock on L foot. Now the neuropathy has started in his R foot. Denies foot pain. States he stands a lot with a wide spread stance. States he feels hot/cold, tickling, feels like bunched sock in toes and the tingling as if feet have fallen asleep, comes and goes with standing. States he has weakness in his legs. Does [employer] bike and yoga daily. 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 Future Testing and Treatments Planned 09/24/22: [employer] Worker appt (Dr Emilia Hinton in ) 09/26/22: Accupuncture appt. Developmental History Developmental History Occasionally has had achilles tendonitis of L heel (pain on heel and outside of heel) and he would ice it. 10 yrs ago he was carrying his daughter, and she tried to throw herself onto the ground, causing him to quickly bend forward to keep from dropping her, since then he has had R thigh sensations (wet) and if he stands for excessive time his R thigh kang. When he worked, 16-18 hr days he had achy feet. Treatment Goals Patient/Caregiver Goals Pt goal is to not have pain, normal again. has 12 and 10 yo and wants to travel. No sensation, pain in heel - with way to take care. No pain with walking. Prior Functional Status Baseline Function- ADL's Independent Baseline Function- Mobility Independent Baseline Function- Work/School Building his deck, odd standing. Baseline Function- Recreation/Hobbies Worked in garden. Current Functional Impairments (Reported) Functional Limitations- ADL's Difficulty hauling his trash can up his driveway because the feet feel like he has been working all day. Functional Limitations- Mobility/Gait Weakness in legs; therefore not confident in gait. Clumsiness. Functional Limitations- Work/School Self employed. Functional Limitations- Recreation/ Does [employer] bike and yoga Hobbies daily. Personal Factors Other Personal Factors That May Effect Pt reports being very active Therapy/Recovery and is wanting to travel with his spouse and children ages 12 & 10. Back injury 10 yrs ago. Flattened arches requiring orthotics in shoes. PT-OP-C Subjective Start: 09/06/22 18:45 Freq: Status: Active Protocol: Document 02/07/23 11:28 LRN (Rec: 02/07/23 12:26 LRN [id number]) OP-PT Subjective Patient Comments Patient Comments States his buttock is tired, like he has been exercising. States the accupuncturist worked on his legs yesterday. Woke this morning with his R foot feeling 90% better only in the toes and heel is barely a problem. The left is 50% better. THings get tired at the end of the day. After last session, the nerves feel like a little better than the day before, but the buttock and low back feels more sore. Doing the LE neural glide does not cause feeling of sock on foot if he doesn't DF his foot. Able to wear [place] shoes (boat shoe w/o orthotic w/o shoes) on for 8 hrs 2 days ago and off/on yesterday and didn't feel like he had to run home and take off. Yesterday did yardwork in regular shoes for couple hours. PT-OP-G Mobility & Gait Start: 09/06/22 18:45 Freq: Status: Active Protocol: Document 09/10/22 13:03 LRN (Rec: 09/10/22 19:20 LRN [id number]) OP Gait Assessment Gait Gait Assistance Required: Independent Able to Maintain Weight Bearing Status Yes During Gait Assistive Devices Assistive Device None Gait Deviations General Gait Pattern Flexed Trunk,Wide Based Gait Factors Limiting Gait Function Factors Limiting Gait Function Decreased Sensation,Decreased Strength,Pain Comments Gait Comments Pain in heels with heel strike . PT-OP-H Neuro Start: 09/06/22 18:45 Freq: Status: Active Protocol: Document 09/10/22 13:03 LRN (Rec: 09/10/22 19:20 LRN [id number]) Sensation Evaluation Gross Sensation Gross Sensation WNL,Left LE Impaired,Right LE Impaired Sensation Description Tingling,Pins & [place], Heaviness Comments Summary Comments Pt is able to feel light touch /firm pressure difference, and reports having normal sensation to hot/cold. Deep Tendon Reflex & Clonus Assessment Deep Tendon Reflex Bilateral Achilles Deep Tendon Reflex 2+ Normal PT-OP-J Posture/Palpation/Skin Start: 09/06/22 18:45 Freq: Status: Active Protocol: Document 09/14/22 13:04 LRN (Rec: 09/14/22 16:59 LRN [id number]) Palpation Assessment Location Medial Malleoli in supine Palpation Location Medial malleolus Palpation Details L leg is short/ R leg long. PT-OP-K Range of Motion Start: 09/06/22 18:45 Freq: Status: Active Protocol: Document 02/07/23 11:28 LRN (Rec: 02/07/23 12:26 LRN [id number]) Hip Goniometric Range of Motion Hip Right Passive Testing Position Supine Internal Rotation 10 External Rotation 70 Left Passive Testing Position Supine Internal Rotation 25 External Rotation 70 PT-OP-M Strength Start: 09/06/22 18:45 Freq: Status: Active Protocol: Document 09/18/22 13:03 LRN (Rec: 09/18/22 16:24 LRN [id number]) Trunk Strength Trunk Manual Muscle Testing Core Stabilization Pt has mild loss of core stability with MMT of LE's, especially with testing of R hip flexion (weak L trunk rot) . Hip Strength Hip Manual Muscle Testing Right Comments Generally 5/5 Left Extension (S1) 4 Good Adduction 3 Fair External Rotation 3+ Fair+ Comments Generally 5/5 except as indicated abovel PT-OP-Q Treatments Start: 09/06/22 18:45 Freq: Status: Active Protocol: Document 02/07/23 11:28 LRN (Rec: 02/07/23 12:26 LRN [id number]) Therapeutic Exercises Supine Exercises PROM hips Supine Exercise Name PROM hips ER/IR stretching Side right Comments Followed by C/R stretch & active stretch. Lateral Hip stretch Supine Exercise Name w/MH/Lateral hip stretch Side right Reps/Minutes 1 minute each x 2 Piriformis stretch Supine Exercise Name w/MH/Piriformis stretch w/ ankle mvmt, breathing, Side right Reps/Minutes 2x Standing Exercises Postural training Standing Exercise Name Posture training Comments Cuing head to ceiling Other Exercises Hands/knees Other Exercise Name Cat/cow & neutral spinal positioning (head to ceiling like position) Reps/Minutes 8' Comments Cuing for mid and lower T/S for ext Manual Therapy Treatment Soft Tissue Mobilization Coccygeus Body Location L>R Coccyxgeus ms Mobilization Type Sustained Pressure,Trigger Point Release Intensity/Depth Moderate Body Position Prone Comments Slow to release. Sacrum Body Location L lateral border of sacrum, PA pressure applied Mobilization Type Sustained Pressure Body Position Prone Comments PA to correct L rot Self-Care/Home Management Treatment Activities Self-Care/Home Management Activities Issued/reviewed/educated pt in use of hot/cold packs for contrast-bath type home treatment to LB/sacrum and if needed posterior LLE for pain management. PT-OP-R Modalities Start: 09/06/22 18:45 Freq: Status: Active Protocol: Document 11/19/22 09:50 LRN (Rec: 11/19/22 10:55 LRN [id number]) Hot Pack/Cold Pack Treatment Cold Pack Location Lumbosacral region Patient Position Hooklying Treatment Duration (minutes) 10 Patient Tolerance Good Comments legs on bolster PT-OP-T Assessment and Plan Start: 09/06/22 18:45 Freq: Status: Active Protocol: Document 02/07/23 11:28 LRN (Rec: 02/07/23 12:26 LRN [id number]) Physical Therapy Assessment Rehab Potential Rehabilitation Potential Good Evaluation Complexity Number of Personal Factors/Comorbidities 3 or More Number of Body Systems Impaired 4 or More Clinical Presentation at Evaluation Evolving Impairments Impairments Activity Tolerance,Gait,Pain, Posture,Sensation,Soft Tissue Mobility,Strength Goals Three Impairment Heel pain with gait rated 2-3/ 10. Short Term Goal (STG) Improve hip rotational mobility (IR>ER) with lessening heel pain with gait. 11/08/22: L Heel pain comes/ goes during the day. 12/06/22: L heel pain 0-1/10. Accupuncture helped a lot. 01/18/23: 97% improved with Accupuncture. L heel pain 97 % gone, every now and then feel a twinge at the end of the day. Sometimes there, sometimes not. STG Duration 01/03/23 progression Assisted Goal (LTG) Pelvic symmetry and stability ex's with no heel pain when walking. 09/18/22: Pelvis symmetrical. Heel pain is in variable locations (inner and outer heel). 12/06/22: Level pelvis but deep on R ASIS. 01/18/23: Pelvis is level. L heel pain 97% gone, every now and then feel a twinge at the end of the day. 02/07/23: Mostly no L heel pain, occasional pain with walking. LTG Duration 02/04/23 partially met goal 02/07/23. Two Impairment Neuropathy of feet Impairment Sensation: Lyubov and wearing a wrinkled sock feeling worse in ball of feet and 1-3 digits of the toes, plantar surface. Short Term Goal (STG) Pt will be educated in proper body mechanics. STG Duration 10/26/22 (09/18/22: MET GOAL) Assisted Goal (LTG) Normalize sensation in the feet bilaterally. 10/02/22: End of treatment decrease sandyfeeling to toes 1-3 bilaterally. 10/18/22: RLE except toes has reduced lyubov feeling, less tingling. 11/15/22: Feet and thighs more normalization in feeling. 01/31/23: Improvement in feeling of feet noted. 12/06/22: Last wk 80% better, this week 50% better, improvement towards normalization is variable. 01/18/23: Lyubov feeling now a little more intense and in all toes and across the feet but in low amount vs in chicken feet present pattern. 02/07/23: R 90% normal, L is 40% normal. LTG Duration 02/04/23 progressing 02/07/23 One Impairment Lacks appropriate self care HEP. Short Term Goal (STG) Pt will be educated in proper posturing and use of home modalities for pain/sensation management. STG Duration 10/26/22 (09/18/22: MET GOAL) Assisted Goal (LTG) UPDATED GOAL: Pt goal is to improve tolerance to wearing shoes on his feet all day without having to feel like he needs to immediately remove shoes once home. No sensation, pain in heel - with way to take care. 09/14/22: I/S in TA strengthening. 12/06/22: Pain is annoying and rated constant 3/10. Not really pain, but intensity of electricity/dullness/numbness that goes up into the legs. Some days weak and some numbness sensation. Numbness sensation in legs have gone down. 02/07/23: Able to wear [place] shoes 8 hrs, 2 hrs in regular shoes. LTG Duration 03/19/23 progressing 02/07/23 Assessment Summary Assessment Pt is noting good progress in reduction of symptoms of numbness of feet, R 90% normal , L is 40% normal. His heel pain is much improved with mostly no L heel pain, only occasional with walking. He is also improving in his tolerance to wearing shoes. His hip mobility continues to progress in symmetry in movement. The pt is making good progress as his improves in trunk mobility, mobilization of his soft tissues and thoracic spine. The pt will benefit from continue skilled physical therapy to further improve in the areas described above and to maximize normalization of LE sensations and to improve awareness of proper body mechanics and posturing. Pt failed to turn in his functional health questionnaires, but per subjective reports shows improved function overall. Physical Therapy Plan Frequency and Duration Frequency of Treatment 2x/Week Plan of Care Start Date 01/18/23 Plan of Care End Date 03/19/23 Therapeutic Interventions Therapeutic Interventions Gait Training,Home Exercise Program,Joint Mobilizations, Manual Therapy,Neuromuscular Re-education,Patient/Caregiver Education,Self-Care/Home Management,Soft Tissue Mobilization,Therapeutic Exercises Modalities Cold Pack/Ice Massage,Hot Packs,Ultrasound Next Visit Focus/Plan Next Note Type Progress Note Next Visit Plan Assess for PN. Assess response to limited movement of LE neural glides, if worsened, DC ex, and response to stretches wile hot/cold treatment applied. Assess for his restricted mobility of his R trunk. Issue HEP of prone hip IR stretch if available. Cont: Mobilization of his thoracic spine (thoracic spine to Improve T/S & high L/S jt mechanics avoiding L3-L4, L4- S1). Stretch Iliopsoas & Piriformis w/neural glides (?hip IR-DANIS, ?lumbar flex) As needed: Mobilization Correction of posterior shift in the R innominate. Progress Core (abdominal) stabilization for trunk flex. Pt to do contrast bath treatment to feet, ending with cold. Manual: No STM on days having accupuncture at accupuncturist's request. Pt to continue use of tilt table at home.
--- NOTE | 2023-02-07 20:14 | PT.OPPN ---
Current Diagnoses Polyneuropathy, unspecified (02/07/23) Radiculopathy, site unspecified (02/07/23) Muscle weakness (generalized) (02/07/23) Abnormal posture (02/07/23) Other reduced mobility (02/07/23) Physical Therapy Progress Note PT-OP-A Visit Information Start: 09/06/22 18:45 Freq: Status: Active Protocol: Document 02/07/23 11:28 LRN (Rec: 02/07/23 12:26 LRN [id number]) Out-Patient Physical Therapy Visit Information Visit Information Visit Type Progress Note Visit Note 10 after PN Visit Start Time 11:28 Visit Stop Time 12:06 Total Visit Minutes 38 Visit Number total in 2022. Evaluation Information Evaluation Date 09/10/22 Precautions Precautions Inguinal Hernia-R front mesh. PT-OP-B Current Condition Start: 09/06/22 18:45 Freq: Status: Active Protocol: Document 09/10/22 13:03 LRN (Rec: 09/10/22 19:20 LRN [id number]) Current Condition History of Current Condition Onset Date Few months ago Current Complaints Sonny foot lyubov feeling and feeling of socks on feet. History of Current Condition Few months ago went for a walk wearing his orthotics and hurt his L heel. He took it easy and 3 weeks later he started to get neuropathy, a feeling of sandiness and sock on L foot. Now the neuropathy has started in his R foot. Denies foot pain. States he stands a lot with a wide spread stance. States he feels hot/cold, tickling, feels like bunched sock in toes and the tingling as if feet have fallen asleep, comes and goes with standing. States he has weakness in his legs. Does Airdyne bike and yoga daily. 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 Future Testing and Treatments Planned 09/24/22: [facility] Township Assessor appt (Dr Emilia Hinton in ) 09/26/22: Accupuncture appt. Developmental History Developmental History Occasionally has had achilles tendonitis of L heel (pain on heel and outside of heel) and he would ice it. 10 yrs ago he was carrying his daughter, and she tried to throw herself onto the ground, causing him to quickly bend forward to keep from dropping her, since then he has had R thigh sensations (wet) and if he stands for excessive time his R thigh kang. When he worked, 16-18 hr days he had achy feet. Treatment Goals Patient/Caregiver Goals Pt goal is to not have pain, normal again. has 12 and 10 yo and wants to travel. No sensation, pain in heel - with way to take care. No pain with walking. Prior Functional Status Baseline Function- ADL's Independent Baseline Function- Mobility Independent Baseline Function- Work/School Building his deck, odd standing. Baseline Function- Recreation/Hobbies Worked in garden. Current Functional Impairments (Reported) Functional Limitations- ADL's Difficulty hauling his trash can up his driveway because the feet feel like he has been working all day. Functional Limitations- Mobility/Gait Weakness in legs; therefore not confident in gait. Clumsiness. Functional Limitations- Work/School Self employed. Functional Limitations- Recreation/ Does Airdyne bike and yoga Hobbies daily. Personal Factors Other Personal Factors That May Effect Pt reports being very active Therapy/Recovery and is wanting to travel with his spouse and children ages 12 & 10. Back injury 10 yrs ago. Flattened arches requiring orthotics in shoes. PT-OP-C Subjective Start: 09/06/22 18:45 Freq: Status: Active Protocol: Document 02/07/23 11:28 LRN (Rec: 02/07/23 12:26 LRN [id number]) OP-PT Subjective Patient Comments Patient Comments States his buttock is tired, like he has been exercising. States the accupuncturist worked on his legs yesterday. Woke this morning with his R foot feeling 90% better only in the toes and heel is barely a problem. The left is 50% better. THings get tired at the end of the day. After last session, the nerves feel like a little better than the day before, but the buttock and low back feels more sore. Doing the LE neural glide does not cause feeling of sock on foot if he doesn't DF his foot. Able to wear [place] shoes (boat shoe w/o orthotic w/o shoes) on for 8 hrs 2 days ago and off/on yesterday and didn't feel like he had to run home and take off. Yesterday did yardwork in regular shoes for couple hours. PT-OP-G Mobility & Gait Start: 09/06/22 18:45 Freq: Status: Active Protocol: Document 09/10/22 13:03 LRN (Rec: 09/10/22 19:20 LRN [id number]) OP Gait Assessment Gait Gait Assistance Required: Independent Able to Maintain Weight Bearing Status Yes During Gait Assistive Devices Assistive Device None Gait Deviations General Gait Pattern Flexed Trunk,Wide Based Gait Factors Limiting Gait Function Factors Limiting Gait Function Decreased Sensation,Decreased Strength,Pain Comments Gait Comments Pain in heels with heel strike . PT-OP-H Neuro Start: 09/06/22 18:45 Freq: Status: Active Protocol: Document 09/10/22 13:03 LRN (Rec: 09/10/22 19:20 LRN [id number]) Sensation Evaluation Gross Sensation Gross Sensation WNL,Left LE Impaired,Right LE Impaired Sensation Description Tingling,Pins & [place], Heaviness Comments Summary Comments Pt is able to feel light touch /firm pressure difference, and reports having normal sensation to hot/cold. Deep Tendon Reflex & Clonus Assessment Deep Tendon Reflex Bilateral Achilles Deep Tendon Reflex 2+ Normal PT-OP-J Posture/Palpation/Skin Start: 09/06/22 18:45 Freq: Status: Active Protocol: Document 09/14/22 13:04 LRN (Rec: 09/14/22 16:59 LRN [id number]) Palpation Assessment Location Medial Malleoli in supine Palpation Location Medial malleolus Palpation Details L leg is short/ R leg long. PT-OP-K Range of Motion Start: 09/06/22 18:45 Freq: Status: Active Protocol: Document 02/07/23 11:28 LRN (Rec: 02/07/23 12:26 LRN [id number]) Hip Goniometric Range of Motion Hip Measured in Degrees Right Passive Testing Position Supine Internal Rotation 10 External Rotation 70 Left Passive Testing Position Supine Internal Rotation 25 External Rotation 70 PT-OP-M Strength Start: 09/06/22 18:45 Freq: Status: Active Protocol: Document 09/18/22 13:03 LRN (Rec: 09/18/22 16:24 LRN [id number]) Trunk Strength Trunk Manual Muscle Testing Core Stabilization Pt has mild loss of core stability with MMT of LE's, especially with testing of R hip flexion (weak L trunk rot) . Hip Strength Hip Manual Muscle Testing Right Comments Generally 5/5 Left Extension (S1) 4 Good Adduction 3 Fair External Rotation 3+ Fair+ Comments Generally 5/5 except as indicated abovel PT-OP-T Assessment and Plan Start: 09/06/22 18:45 Freq: Status: Active Protocol: Document 02/07/23 11:28 LRN (Rec: 02/07/23 12:26 LRN [id number]) Physical Therapy Assessment Rehab Potential Rehabilitation Potential Good Evaluation Complexity Number of Personal Factors/Comorbidities 3 or More Number of Body Systems Impaired 4 or More Clinical Presentation at Evaluation Evolving Impairments Impairments Activity Tolerance,Gait,Pain, Posture,Sensation,Soft Tissue Mobility,Strength Goals Three Impairment Heel pain with gait rated 2-3/ 10. Short Term Goal (STG) Improve hip rotational mobility (IR>ER) with lessening heel pain with gait. 11/08/22: L Heel pain comes/ goes during the day. 12/06/22: L heel pain 0-1/10. Accupuncture helped a lot. 01/18/23: 97% improved with Accupuncture. L heel pain 97 % gone, every now and then feel a twinge at the end of the day. Sometimes there, sometimes not. STG Duration 01/03/23 progression Reprint Sorter Goal (LTG) Pelvic symmetry and stability ex's with no heel pain when walking. 09/18/22: Pelvis symmetrical. Heel pain is in variable locations (inner and outer heel). 12/06/22: Level pelvis but deep on R ASIS. 01/18/23: Pelvis is level. L heel pain 97% gone, every now and then feel a twinge at the end of the day. 02/07/23: Mostly no L heel pain, occasional pain with walking. LTG Duration 02/04/23 partially met goal 02/07/23. Two Impairment Neuropathy of feet Impairment Sensation: Lyubov and wearing a wrinkled sock feeling worse in ball of feet and 1-3 digits of the toes, plantar surface. Short Term Goal (STG) Pt will be educated in proper body mechanics. STG Duration 10/26/22 (09/18/22: MET GOAL) Reprint Sorter Goal (LTG) Normalize sensation in the feet bilaterally. 10/02/22: End of treatment decrease sandyfeeling to toes 1-3 bilaterally. 10/18/22: RLE except toes has reduced lyubov feeling, less tingling. 11/15/22: Feet and thighs more normalization in feeling. 01/31/23: Improvement in feeling of feet noted. 12/06/22: Last wk 80% better, this week 50% better, improvement towards normalization is variable. 01/18/23: Lyubov feeling now a little more intense and in all toes and across the feet but in low amount vs in chicken feet present pattern. 02/07/23: R 90% normal, L is 40% normal. LTG Duration 02/04/23 progressing 02/07/23 One Impairment Lacks appropriate self care HEP. Short Term Goal (STG) Pt will be educated in proper posturing and use of home modalities for pain/sensation management. STG Duration 10/26/22 (09/18/22: MET GOAL) Reprint Sorter Goal (LTG) UPDATED GOAL: Pt goal is to improve tolerance to wearing shoes on his feet all day without having to feel like he needs to immediately remove shoes once home. No sensation, pain in heel - with way to take care. 09/14/22: I/S in TA strengthening. 12/06/22: Pain is annoying and rated constant 3/10. Not really pain, but intensity of electricity/dullness/numbness that goes up into the legs. Some days weak and some numbness sensation. Numbness sensation in legs have gone down. 02/07/23: Able to wear [place] shoes 8 hrs, 2 hrs in regular shoes. LTG Duration 03/19/23 progressing 02/07/23 Assessment Summary Assessment Pt is noting good progress in reduction of symptoms of numbness of feet, R 90% normal , L is 40% normal. His heel pain is much improved with mostly no L heel pain, only occasional with walking. He is also improving in his tolerance to wearing shoes. His hip mobility continues to progress in symmetry in movement. The pt is making good progress as his improves in trunk mobility, mobilization of his soft tissues and thoracic spine. He showed good tolerance to LE neural glides with no worsening of sensation symptoms and + response to use of hot/cold during treatment. The pt will benefit from continue skilled physical therapy to further improve in the areas described above and to maximize normalization of LE sensations and to improve awareness of proper body mechanics and posturing. Pt failed to turn in his functional health questionnaires, but per subjective reports shows improved function overall. Physical Therapy Plan Frequency and Duration Frequency of Treatment 2x/Week Plan of Care Start Date 01/18/23 Plan of Care End Date 03/19/23 Therapeutic Interventions Therapeutic Interventions Gait Training,Home Exercise Program,Joint Mobilizations, Manual Therapy,Neuromuscular Re-education,Patient/Caregiver Education,Self-Care/Home Management,Soft Tissue Mobilization,Therapeutic Exercises Modalities Cold Pack/Ice Massage,Hot Packs,Ultrasound Next Visit Focus/Plan Next Note Type Treatment Note Next Visit Plan Monitor for symptoms with LE neural glides, if worsens, DC ex. Assess for his restricted mobility of his R trunk. Issue HEP of prone hip IR stretch if available. Cont: Mobilization of his thoracic spine (thoracic spine to Improve T/S & high L/S jt mechanics avoiding L3-L4, L4- S1). Stretch Iliopsoas & Piriformis w/neural glides (?hip IR-DANIS, ?lumbar flex) As needed: Mobilization Correction of posterior shift in the R innominate. Progress Core (abdominal) stabilization for trunk flex. Pt to do contrast bath treatment to feet, ending with cold. Manual: No STM on days having accupuncture at accupuncturist's request. Pt to continue use of tilt table at home.
--- NOTE | 2023-02-11 12:33 | PT.OTN ---
Current Diagnoses Polyneuropathy, unspecified (02/11/23) Radiculopathy, site unspecified (02/11/23) Muscle weakness (generalized) (02/11/23) Abnormal posture (02/11/23) Other reduced mobility (02/11/23) Physical Therapy Treatment Note PT-OP-A Visit Information Start: 09/06/22 18:45 Freq: Status: Active Protocol: Document 02/11/23 11:21 LRN (Rec: 02/11/23 12:32 LRN [id number]) Out-Patient Physical Therapy Visit Information Visit Information Visit Type Treatment Note Visit Note 1 after PN Visit Start Time 11:21 Visit Stop Time 12:10 Total Visit Minutes 42 Visit Number total in 2022. Evaluation Information Evaluation Date 09/10/22 Precautions Precautions Inguinal Hernia-R front mesh. PT-OP-B Current Condition Start: 09/06/22 18:45 Freq: Status: Active Protocol: Document 09/10/22 13:03 LRN (Rec: 09/10/22 19:20 LRN [id number]) Current Condition History of Current Condition Onset Date Few months ago Current Complaints Sonny foot lyubov feeling and feeling of socks on feet. History of Current Condition Few months ago went for a walk wearing his orthotics and hurt his L heel. He took it easy and 3 weeks later he started to get neuropathy, a feeling of sandiness and sock on L foot. Now the neuropathy has started in his R foot. Denies foot pain. States he stands a lot with a wide spread stance. States he feels hot/cold, tickling, feels like bunched sock in toes and the tingling as if feet have fallen asleep, comes and goes with standing. States he has weakness in his legs. Does Airdyne bike and yoga daily. 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 Future Testing and Treatments Planned 09/24/22: Truck Driver Helper appt (Dr Emliia Hinton in ) 09/26/22: Accupuncture appt. Developmental History Developmental History Occasionally has had achilles tendonitis of L heel (pain on heel and outside of heel) and he would ice it. 10 yrs ago he was carrying his daughter, and she tried to throw herself onto the ground, causing him to quickly bend forward to keep from dropping her, since then he has had R thigh sensations (wet) and if he stands for excessive time his R thigh kang. When he worked, 16-18 hr days he had achy feet. Treatment Goals Patient/Caregiver Goals Pt goal is to not have pain, normal again. has 12 and 9 yo and wants to travel. No sensation, pain in heel - with way to take care. No pain with walking. Prior Functional Status Baseline Function- ADL's Independent Baseline Function- Mobility Independent Baseline Function- Work/School Building his deck, odd standing. Baseline Function- Recreation/Hobbies Worked in garden. Current Functional Impairments (Reported) Functional Limitations- ADL's Difficulty hauling his trash can up his driveway because the feet feel like he has been working all day. Functional Limitations- Mobility/Gait Weakness in legs; therefore not confident in gait. Clumsiness. Functional Limitations- Work/School Self employed. Functional Limitations- Recreation/ Does Airdyne bike and yoga Hobbies daily. Personal Factors Other Personal Factors That May Effect Pt reports being very active Therapy/Recovery and is wanting to travel with his spouse and children ages 12 & 10. Back injury 10 yrs ago. Flattened arches requiring orthotics in shoes. PT-OP-C Subjective Start: 09/06/22 18:45 Freq: Status: Active Protocol: Document 02/11/23 11:21 LRN (Rec: 02/11/23 12:32 LRN [id number]) OP-PT Subjective Patient Comments Patient Comments No Change. [place] good after last time in. Electricity is low but spread out (last week higher intensity and in toes) now feels across all the toes (like last week), but very low (was in front last week), now into broader plantar midfoot, but less vibration (15% vibration). L foot: 70% feeling vibration; now 50-55% vibration, but across the majority of the foot. No numbness. Hasn't done LE neural glides but does the hot /cold, and has noticed ok results. Heat is soothing, but ice is not, soothing heat on coccyx/sacrum. PT-OP-G Mobility & Gait Start: 09/06/22 18:45 Freq: Status: Active Protocol: Document 09/10/22 13:03 LRN (Rec: 09/10/22 19:20 LRN [id number]) OP Gait Assessment Gait Gait Assistance Required: Independent Able to Maintain Weight Bearing Status Yes During Gait Assistive Devices Assistive Device None Gait Deviations General Gait Pattern Flexed Trunk,Wide Based Gait Factors Limiting Gait Function Factors Limiting Gait Function Decreased Sensation,Decreased Strength,Pain Comments Gait Comments Pain in heels with heel strike . PT-OP-H Neuro Start: 09/06/22 18:45 Freq: Status: Active Protocol: Document 09/10/22 13:03 LRN (Rec: 09/10/22 19:20 LRN [id number]) Sensation Evaluation Gross Sensation Gross Sensation WNL,Left LE Impaired,Right LE Impaired Sensation Description Tingling,Pins & [place], Heaviness Comments Summary Comments Pt is able to feel light touch /firm pressure difference, and reports having normal sensation to hot/cold. Deep Tendon Reflex & Clonus Assessment Deep Tendon Reflex Bilateral Achilles Deep Tendon Reflex 2+ Normal PT-OP-J Posture/Palpation/Skin Start: 09/06/22 18:45 Freq: Status: Active Protocol: Document 09/14/22 13:04 LRN (Rec: 09/14/22 16:59 LRN [id number]) Palpation Assessment Location Medial Malleoli in supine Palpation Location Medial malleolus Palpation Details L leg is short/ R leg long. PT-OP-K Range of Motion Start: 09/06/22 18:45 Freq: Status: Active Protocol: Document 02/07/23 11:28 LRN (Rec: 02/07/23 12:26 LRN [id number]) Hip Goniometric Range of Motion Hip Right Passive Testing Position Supine Internal Rotation 10 External Rotation 70 Left Passive Testing Position Supine Internal Rotation 25 External Rotation 70 PT-OP-M Strength Start: 09/06/22 18:45 Freq: Status: Active Protocol: Document 09/18/22 13:03 LRN (Rec: 09/18/22 16:24 LRN [id number]) Trunk Strength Trunk Manual Muscle Testing Core Stabilization Pt has mild loss of core stability with MMT of LE's, especially with testing of R hip flexion (weak L trunk rot) . Hip Strength Hip Manual Muscle Testing Right Comments Generally 5/5 Left Extension (S1) 4 Good Adduction 3 Fair External Rotation 3+ Fair+ Comments Generally 5/5 except as indicated abovel PT-OP-Q Treatments Start: 09/06/22 18:45 Freq: Status: Active Protocol: Document 02/11/23 11:21 LRN (Rec: 02/11/23 12:32 LRN [id number]) Manual Therapy Treatment Soft Tissue Mobilization Coccygeus Body Location L>R Coccyxgeus ms Mobilization Type Sustained Pressure,Trigger Point Release Intensity/Depth Moderate Body Position Knee to chest R side Comments L side treatment in [facility] Hip Internal Rotators Body Location DANIS stretch into bilateral hip IR (R>L) Intensity/Depth Moderate Body Position Prone Comments L hip tighter than R. Sacrum Body Location L lateral border of sacrum, PA pressure applied Mobilization Type Sustained Pressure Body Position Prone Comments PA to correct L rot Sonny LE's Body Location Bilateral Hip AD's and OI Mobilization Type Trigger Point Release Intensity/Depth Superficial Body Position Hooklying Comments R hip TrP treatment with hip in flexion. L hip TrP treatment in [facility] . Joint Mobilizations Thoracic spine Joint PA Thoracic Spine Direction PA, Rot Grade III Body Position Prone Reps/Duration 10' PT-OP-R Modalities Start: 09/06/22 18:45 Freq: Status: Active Protocol: Document 11/19/22 09:50 LRN (Rec: 11/19/22 10:55 LRN [id number]) Hot Pack/Cold Pack Treatment Cold Pack Location Lumbosacral region Patient Position Hooklying Treatment Duration (minutes) 10 Patient Tolerance Good Comments legs on bolster PT-OP-T Assessment and Plan Start: 09/06/22 18:45 Freq: Status: Active Protocol: Document 02/11/23 11:21 LRN (Rec: 02/11/23 12:32 LRN [id number]) Physical Therapy Assessment Goals Three Impairment Heel pain with gait rated 2-3/ 10. Short Term Goal (STG) Improve hip rotational mobility (IR>ER) with lessening heel pain with gait. 11/08/22: L Heel pain comes/ goes during the day. 12/06/22: L heel pain 0-1/10. Accupuncture helped a lot. 01/18/23: 97% improved with Accupuncture. L heel pain 97 % gone, every now and then feel a twinge at the end of the day. Sometimes there, sometimes not. STG Duration 01/03/23 progression Shelter Goal (LTG) Pelvic symmetry and stability ex's with no heel pain when walking. 09/18/22: Pelvis symmetrical. Heel pain is in variable locations (inner and outer heel). 12/06/22: Level pelvis but deep on R ASIS. 01/18/23: Pelvis is level. L heel pain 97% gone, every now and then feel a twinge at the end of the day. 02/07/23: Mostly no L heel pain, occasional pain with walking. LTG Duration 02/04/23 partially met goal 02/07/23. Two Impairment Neuropathy of feet Impairment Sensation: [place]ubov and wearing a wrinkled sock feeling worse in ball of feet and 1-3 digits of the toes, plantar surface. Short Term Goal (STG) Pt will be educated in proper body mechanics. STG Duration 10/26/22 (09/18/22: MET GOAL) Brain Picker Goal (LTG) Normalize sensation in the feet bilaterally. 10/02/22: End of treatment decrease sandyfeeling to toes 1-3 bilaterally. 10/18/22: RLE except toes has reduced lyubov feeling, less tingling. 11/15/22: Feet and thighs more normalization in feeling. 01/31/23: Improvement in feeling of feet noted. 12/06/22: Last wk 80% better, this week 50% better, improvement towards normalization is variable. 01/18/23: Lyubov feeling now a little more intense and in all toes and across the feet but in low amount vs in chicken feet present pattern. 02/07/23: R 90% normal, L is 40% normal. LTG Duration 02/04/23 progressing 02/07/23 One Impairment Lacks appropriate self care HEP. Short Term Goal (STG) Pt will be educated in proper posturing and use of home modalities for pain/sensation management. STG Duration 10/26/22 (09/18/22: MET GOAL) Shelter Goal (LTG) UPDATED GOAL: Pt goal is to improve tolerance to wearing shoes on his feet all day without having to feel like he needs to immediately remove shoes once home. No sensation, pain in heel - with way to take care. 09/14/22: I/S in TA strengthening. 12/06/22: Pain is annoying and rated constant 3/10. Not really pain, but intensity of electricity/dullness/numbness that goes up into the legs. Some days weak and some numbness sensation. Numbness sensation in legs have gone down. 02/07/23: Able to wear [place] shoes 8 hrs, 2 hrs in regular shoes. LTG Duration 03/19/23 progressing 02/07/23 Progress Towards Goals Progress Comments Lessening of vibration symptom of feet bilaterally after treatment. Assessment Summary Assessment Pt extremely tender to touch in external area of OI; therefore held flossing of OI bilaterally. Pt had referred pain to L foot and R hip with L. OI treatment. Sacrum was in L rotation mostly corrected after treatment. Pt did not do LE sciatic n. glides at home, but since pt has had no change in symptoms, will Hold LE neural glides. Post-therapy, pt had reduction in intensity of symptoms after therapy. R foot only ball of foot and toes have vibration and L distal 2/3rds of plantar surface of foot has vibrations . Physical Therapy Plan Frequency and Duration Frequency of Treatment 2x/Week Plan of Care Start Date 01/18/23 Plan of Care End Date 03/19/23 Next Visit Focus/Plan Next Note Type Treatment Note Next Visit Plan Assess for his restricted mobility of his R trunk. Issue HEP of prone hip IR stretch if available. Cont: Mobilization of his thoracic spine (thoracic spine to Improve T/S & high L/S jt mechanics avoiding L3-L4, L4- S1). Stretch Iliopsoas & Piriformis w/neural glides (?hip IR-DANIS, ?lumbar flex) As needed: Mobilization Correction of posterior shift in the R innominate. Progress Core (abdominal) stabilization for trunk flex. Manual: No STM on days having accupuncture at accupuncturist's request. Hold LE neural glides. Pt to do contrast bath treatment to feet, ending with cold. Pt to continue use of tilt table at home.
--- NOTE | 2023-02-14 12:33 | PT.OTN ---
Current Diagnoses Polyneuropathy, unspecified (02/14/23) Radiculopathy, site unspecified (02/14/23) Muscle weakness (generalized) (02/14/23) Abnormal posture (02/14/23) Other reduced mobility (02/14/23) Physical Therapy Treatment Note PT-OP-A Visit Information Start: 09/06/22 18:45 Freq: Status: Active Protocol: Document 02/14/23 11:28 LRN (Rec: 02/14/23 12:31 LRN [id number]) Out-Patient Physical Therapy Visit Information Visit Information Visit Type Treatment Note Visit Note 2 after PN Visit Start Time 11:28 Visit Stop Time 12:14 Total Visit Minutes 46 Visit Number total; in 2022. Evaluation Information Evaluation Date 09/10/22 Precautions Precautions Inguinal Hernia-R front mesh. PT-OP-B Current Condition Start: 09/06/22 18:45 Freq: Status: Active Protocol: Document 09/10/22 13:03 LRN (Rec: 09/10/22 19:20 LRN [id number]) Current Condition History of Current Condition Onset Date Few months ago Current Complaints Justin foot lyubov feeling and feeling of socks on feet. History of Current Condition Few months ago went for a walk wearing his orthotics and hurt his L heel. He took it easy and 3 weeks later he started to get neuropathy, a feeling of sandiness and sock on L foot. Now the neuropathy has started in his R foot. Denies foot pain. States he stands a lot with a wide spread stance. States he feels hot/cold, tickling, feels like bunched sock in toes and the tingling as if feet have fallen asleep, comes and goes with standing. States he has weakness in his legs. Does [employer] bike and yoga daily. 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 Future Testing and Treatments Planned 09/24/22: Horticulture Teacher appt (Dr Emilia Hinton in ) 09/26/22: Accupuncture appt. Developmental History Developmental History Occasionally has had achilles tendonitis of L heel (pain on heel and outside of heel) and he would ice it. 10 yrs ago he was carrying his daughter, and she tried to throw herself onto the ground, causing him to quickly bend forward to keep from dropping her, since then he has had R thigh sensations (wet) and if he stands for excessive time his R thigh kang. When he worked, 16-18 hr days he had achy feet. Treatment Goals Patient/Caregiver Goals Pt goal is to not have pain, normal again. has 12 and 10 yo and wants to travel. No sensation, pain in heel - with way to take care. No pain with walking. Prior Functional Status Baseline Function- ADL's Independent Baseline Function- Mobility Independent Baseline Function- Work/School Building his deck, odd standing. Baseline Function- Recreation/Hobbies Worked in garden. Current Functional Impairments (Reported) Functional Limitations- ADL's Difficulty hauling his trash can up his driveway because the feet feel like he has been working all day. Functional Limitations- Mobility/Gait Weakness in legs; therefore not confident in gait. Clumsiness. Functional Limitations- Work/School Self employed. Functional Limitations- Recreation/ Does [employer] bike and yoga Hobbies daily. Personal Factors Other Personal Factors That May Effect Pt reports being very active Therapy/Recovery and is wanting to travel with his spouse and children ages 12 & 10. Back injury 10 yrs ago. Flattened arches requiring orthotics in shoes. PT-OP-C Subjective Start: 09/06/22 18:45 Freq: Status: Active Protocol: Document 02/14/23 11:28 LRN (Rec: 02/14/23 12:31 LRN [id number]) OP-PT Subjective Patient Comments Patient Comments 3 hrs after last session pt reports inside crotch super sore, achy. Next day was super sore in lower back and legs felt weak. Day after accupuncturist felt good, very busy day, and wore deck shoes the majority of the day. Feels like he has more feeling in the feet and feels more nimble in stepping over objects. States he is more sore in his lower back and is feeling sparky feeling in his whole area. PT-OP-G Mobility & Gait Start: 09/06/22 18:45 Freq: Status: Active Protocol: Document 09/10/22 13:03 LRN (Rec: 09/10/22 19:20 LRN [id number]) OP Gait Assessment Gait Gait Assistance Required: Independent Able to Maintain Weight Bearing Status Yes During Gait Assistive Devices Assistive Device None Gait Deviations General Gait Pattern Flexed Trunk,Wide Based Gait Factors Limiting Gait Function Factors Limiting Gait Function Decreased Sensation,Decreased Strength,Pain Comments Gait Comments Pain in heels with heel strike . PT-OP-H Neuro Start: 09/06/22 18:45 Freq: Status: Active Protocol: Document 09/10/22 13:03 LRN (Rec: 09/10/22 19:20 LRN [id number]) Sensation Evaluation Gross Sensation Gross Sensation WNL,Left LE Impaired,Right LE Impaired Sensation Description Tingling,[place], Heaviness Comments Summary Comments Pt is able to feel light touch /firm pressure difference, and reports having normal sensation to hot/cold. Deep Tendon Reflex & Clonus Assessment Deep Tendon Reflex Bilateral Achilles Deep Tendon Reflex 2+ Normal PT-OP-J Posture/Palpation/Skin Start: 09/06/22 18:45 Freq: Status: Active Protocol: Document 09/14/22 13:04 LRN (Rec: 09/14/22 16:59 LRN [id number]) Palpation Assessment Location Medial Malleoli in supine Palpation Location Medial malleolus Palpation Details L leg is short/ R leg long. PT-OP-K Range of Motion Start: 09/06/22 18:45 Freq: Status: Active Protocol: Document 02/07/23 11:28 LRN (Rec: 02/07/23 12:26 LRN [id number]) Hip Goniometric Range of Motion Hip Right Passive Testing Position Supine Internal Rotation 10 External Rotation 70 Left Passive Testing Position Supine Internal Rotation 25 External Rotation 70 PT-OP-M Strength Start: 09/06/22 18:45 Freq: Status: Active Protocol: Document 09/18/22 13:03 LRN (Rec: 09/18/22 16:24 LRN [id number]) Trunk Strength Trunk Manual Muscle Testing Core Stabilization Pt has mild loss of core stability with MMT of LE's, especially with testing of R hip flexion (weak L trunk rot) . Hip Strength Hip Manual Muscle Testing Right Comments Generally 5/5 Left Extension (S1) 4 Good Adduction 3 Fair External Rotation 3+ Fair+ Comments Generally 5/5 except as indicated abovel PT-OP-Q Treatments Start: 09/06/22 18:45 Freq: Status: Active Protocol: Document 02/14/23 11:28 LRN (Rec: 02/14/23 12:31 LRN [id number]) Therapeutic Exercises Supine Exercises Ilipsoas stretch Supine Exercise Name Chencho test position from side of plinth and end of plinth Side bilateral Reps/Minutes 5' PROM hips Supine Exercise Name PROM hip IR stretching with MH Side right Comments Followed by C/R stretch & active stretch. Lateral Hip stretch Supine Exercise Name w/hot-cold/Lateral hip stretch Side right Reps/Minutes 1 minute each x 2 Piriformis stretch Supine Exercise Name w/hot-cold/Piriformis stretch w/ankle mvmt, breathing, Side right Reps/Minutes 2x Manual Therapy Treatment Soft Tissue Mobilization Coccygeus Body Location L>R Coccyxgeus ms Mobilization Type Trigger Point Release Intensity/Depth Moderate Body Position Knee to chest R side Comments Treatment not needed Justin LE's Body Location Bilateral Hip AD's and I/S in pt to self treat Mobilization Type Trigger Point Release Intensity/Depth Superficial Body Position Hooklying Comments B hip TrP treatment with hip in flexion and neutral. Joint Mobilizations Thoracic spine Joint PA Thoracic Spine T3-T6 region Direction PA,correct L Rot Grade III Body Position Prone Reps/Duration 10' Comments Hot-Cold during treatment Self-Care/Home Management Treatment Activities Self-Care/Home Management Activities I/S pt to do self TrP treatment to anterior bilateral hips, and to cont upper thoracic ext/flex ex and added I/S for scap protraction strengthening, leaning against wall. PT-OP-R Modalities Start: 09/06/22 18:45 Freq: Status: Active Protocol: Document 11/19/22 09:50 LRN (Rec: 11/19/22 10:55 [facility] [id number]) Hot Pack/Cold Pack Treatment Cold Pack Location Lumbosacral region Patient Position Hooklying Treatment Duration (minutes) 10 Patient Tolerance Good Comments legs on bolster PT-OP-T Assessment and Plan Start: 09/06/22 18:45 Freq: Status: Active Protocol: Document 02/14/23 11:28 LRN (Rec: 02/14/23 12:31 N [id number]) Physical Therapy Assessment Goals Three Impairment Heel pain with gait rated 2-3/ 10. Short Term Goal (STG) Improve hip rotational mobility (IR>ER) with lessening heel pain with gait. 11/08/22: L Heel pain comes/ goes during the day. 12/06/22: L heel pain 0-1/10. Accupuncture helped a lot. 01/18/23: 97% improved with Accupuncture. L heel pain 97 % gone, every now and then feel a twinge at the end of the day. Sometimes there, sometimes not. STG Duration 01/03/23 progression Swat Team Member Goal (LTG) Pelvic symmetry and stability ex's with no heel pain when walking. 09/18/22: Pelvis symmetrical. Heel pain is in variable locations (inner and outer heel). 12/06/22: Level pelvis but deep on R ASIS. 01/18/23: Pelvis is level. L heel pain 97% gone, every now and then feel a twinge at the end of the day. 02/07/23: Mostly no L heel pain, occasional pain with walking. LTG Duration 02/04/23 partially met goal 02/07/23. Two Impairment Neuropathy of feet Impairment Sensation: Lyubov and wearing a wrinkled sock feeling worse in ball of feet and 1-3 digits of the toes, plantar surface. Short Term Goal (STG) Pt will be educated in proper body mechanics. STG Duration 10/26/22 (09/18/22: MET GOAL) Fpc Goal (LTG) Normalize sensation in the feet bilaterally. 10/02/22: End of treatment decrease sandyfeeling to toes 1-3 bilaterally. 10/18/22: RLE except toes has reduced lyubov feeling, less tingling. 11/15/22: Feet and thighs more normalization in feeling. 01/31/23: Improvement in feeling of feet noted. 12/06/22: Last wk 80% better, this week 50% better, improvement towards normalization is variable. 01/18/23: Lyubov feeling now a little more intense and in all toes and across the feet but in low amount vs in chicken feet present pattern. 02/07/23: R 90% normal, L is 40% normal. LTG Duration 02/04/23 progressing 02/07/23 One Impairment Lacks appropriate self care HEP. Short Term Goal (STG) Pt will be educated in proper posturing and use of home modalities for pain/sensation management. STG Duration 10/26/22 (09/18/22: MET GOAL) Fpc Goal (LTG) UPDATED GOAL: Pt goal is to improve tolerance to wearing shoes on his feet all day without having to feel like he needs to immediately remove shoes once home. No sensation, pain in heel - with way to take care. 09/14/22: I/S in TA strengthening. 12/06/22: Pain is annoying and rated constant 3/10. Not really pain, but intensity of electricity/dullness/numbness that goes up into the legs. Some days weak and some numbness sensation. Numbness sensation in legs have gone down. 02/07/23: Able to wear [place] shoes 8 hrs, 2 hrs in regular shoes. 02/14/23: Pt able to wear deck shoes the majority of the day . LTG Duration 03/19/23 progressing 02/07/23 Assessment Summary Assessment Pt having spasms in the chest, R side, from possibly previous thoracic ext/flex ex. His T3-T6 region appears to be in L rotation and L trunk rot is more restricted, possibly from scapular dysfunction with notable scapular winging on L shldr AB . Pt OI bilaterally was not tender to palpation, but hip AD's and general area around the justin anterior hip have multiple trP's that are very active. Pt able to provide self treatment after training. Physical Therapy Plan Frequency and Duration Frequency of Treatment 2x/Week Plan of Care Start Date 01/18/23 Plan of Care End Date 03/19/23 Next Visit Focus/Plan Next Note Type Treatment Note Next Visit Plan Pt going away for a week after next wk. Issue HEP of prone hip IR stretch if available. Cont: Mobilization of his thoracic spine (thoracic spine to Improve T/S ext (L>R in T3 -T6 region) & high L/S jt mechanics avoiding L3-L4, L4- S1). TrP rx for anter justin hip jt and hip AD's. Try: thoracic balancing on R. Stretch Iliopsoas & Piriformis w/neural glides (?hip IR-DANIS, ?lumbar flex) As needed: Mobilization Correction of posterior shift in the R innominate. Progress Core (abdominal) stabilization for trunk flex. Manual: No STM on days having accupuncture at accupuncturist's request. Hold LE neural glides. Pt to do contrast bath treatment to feet and sparky area of chest.
--- NOTE | 2023-02-18 17:13 | PT.OTN ---
Current Diagnoses Polyneuropathy, unspecified (02/18/23) Radiculopathy, site unspecified (02/18/23) Muscle weakness (generalized) (02/18/23) Abnormal posture (02/18/23) Other reduced mobility (02/18/23) Physical Therapy Treatment Note PT-OP-A Visit Information Start: 09/06/22 18:45 Freq: Status: Active Protocol: Document 02/18/23 11:23 LRN (Rec: 02/18/23 12:56 LRN [id number]) Out-Patient Physical Therapy Visit Information Visit Information Visit Type Treatment Note Visit Note 3 after PN Visit Start Time 11: Visit Stop Time 12:03 Total Visit Minutes 40 Visit Number total; in 2022. Evaluation Information Evaluation Date 09/10/22 Precautions Precautions Inguinal Hernia-R front mesh. PT-OP-B Current Condition Start: 09/06/22 18:45 Freq: Status: Active Protocol: Document 09/10/22 13:03 LRN (Rec: 09/10/22 19:20 LRN [id number]) Current Condition History of Current Condition Onset Date Few months ago Current Complaints Justin foot lyubov feeling and feeling of socks on feet. History of Current Condition Few months ago went for a walk wearing his orthotics and hurt his L heel. He took it easy and 3 weeks later he started to get neuropathy, a feeling of sandiness and sock on L foot. Now the neuropathy has started in his R foot. Denies foot pain. States he stands a lot with a wide spread stance. States he feels hot/cold, tickling, feels like bunched sock in toes and the tingling as if feet have fallen asleep, comes and goes with standing. States he has weakness in his legs. Does [employer] bike and yoga daily. 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 Future Testing and Treatments Planned 09/24/22: Pharmacy Technology Instructor appt (Dr Emilia Hinton in ) 09/26/22: Accupuncture appt. Developmental History Developmental History Occasionally has had achilles tendonitis of L heel (pain on heel and outside of heel) and he would ice it. 10 yrs ago he was carrying his daughter, and she tried to throw herself onto the ground, causing him to quickly bend forward to keep from dropping her, since then he has had R thigh sensations (wet) and if he stands for excessive time his R thigh kang. When he worked, 16-18 hr days he had achy feet. Treatment Goals Patient/Caregiver Goals Pt goal is to not have pain, normal again. has 12 and 10 yo and wants to travel. No sensation, pain in heel - with way to take care. No pain with walking. Prior Functional Status Baseline Function- ADL's Independent Baseline Function- Mobility Independent Baseline Function- Work/School Building his deck, odd standing. Baseline Function- Recreation/Hobbies Worked in garden. Current Functional Impairments (Reported) Functional Limitations- ADL's Difficulty hauling his trash can up his driveway because the feet feel like he has been working all day. Functional Limitations- Mobility/Gait Weakness in legs; therefore not confident in gait. Clumsiness. Functional Limitations- Work/School Self employed. Functional Limitations- Recreation/ Does [employer] bike and yoga Hobbies daily. Personal Factors Other Personal Factors That May Effect Pt reports being very active Therapy/Recovery and is wanting to travel with his spouse and children ages 12 & 10. Back injury 10 yrs ago. Flattened arches requiring orthotics in shoes. PT-OP-C Subjective Start: 09/06/22 18:45 Freq: Status: Active Protocol: Document 02/18/23 11:23 LRN (Rec: 02/18/23 12:56 LRN [id number]) OP-PT Subjective Patient Comments Patient Comments States the massage therapy put him to sleep, but states his upper back and gluts were very sore. States he feels there is a dry sock on the bottoms of the feet with low volume vibration and electricity, more prominent on the L than R . He states when the muscles loosen up and then they let go and then are inflammed becuase they let go, and more blood flow. Zinger today, less butt pain, vs yesterday, Less zing, more butt pain. Feels now is walking better and moving better. If thighs start to burn, then knows he must sit down. After therapy pt reports mid back pain, but R foot has opened up, L foot is the same. Pt noted something mobilized PT-OP-G Mobility & Gait Start: 09/06/22 18:45 Freq: Status: Active Protocol: Document 09/10/22 13:03 LRN (Rec: 09/10/22 19:20 LRN [id number]) OP Gait Assessment Gait Gait Assistance Required: Independent Able to Maintain Weight Bearing Status Yes During Gait Assistive Devices Assistive Device None Gait Deviations General Gait Pattern Flexed Trunk,Wide Based Gait Factors Limiting Gait Function Factors Limiting Gait Function Decreased Sensation,Decreased Strength,Pain Comments Gait Comments Pain in heels with heel strike . PT-OP-H Neuro Start: 09/06/22 18:45 Freq: Status: Active Protocol: Document 09/10/22 13:03 LRN (Rec: 09/10/22 19:20 LRN [id number]) Sensation Evaluation Gross Sensation Gross Sensation WNL,Left LE Impaired,Right LE Impaired Sensation Description Tingling,Pins & Howard, Heaviness Comments Summary Comments Pt is able to feel light touch /firm pressure difference, and reports having normal sensation to hot/cold. Deep Tendon Reflex & Clonus Assessment Deep Tendon Reflex Bilateral Achilles Deep Tendon Reflex 2+ Normal PT-OP-J Posture/Palpation/Skin Start: 09/06/22 18:45 Freq: Status: Active Protocol: Document 09/14/22 13:04 LRN (Rec: 09/14/22 16:59 LRN [id number]) Palpation Assessment Location Medial Malleoli in supine Palpation Location Medial malleolus Palpation Details L leg is short/ R leg long. PT-OP-K Range of Motion Start: 09/06/22 18:45 Freq: Status: Active Protocol: Document 02/07/23 11:28 LRN (Rec: 02/07/23 12:26 LRN [id number]) Hip Goniometric Range of Motion Hip Right Passive Testing Position Supine Internal Rotation 10 External Rotation 70 Left Passive Testing Position Supine Internal Rotation 25 External Rotation 70 PT-OP-M Strength Start: 09/06/22 18:45 Freq: Status: Active Protocol: Document 09/18/22 13:03 LRN (Rec: 09/18/22 16:24 LRN [id number]) Trunk Strength Trunk Manual Muscle Testing Core Stabilization Pt has mild loss of core stability with MMT of LE's, especially with testing of R hip flexion (weak L trunk rot) . Hip Strength Hip Manual Muscle Testing Right Comments Generally 5/5 Left Extension (S1) 4 Good Adduction 3 Fair External Rotation 3+ Fair+ Comments Generally 5/5 except as indicated abovel PT-OP-Q Treatments Start: 09/06/22 18:45 Freq: Status: Active Protocol: Document 02/18/23 11:23 LRN (Rec: 02/18/23 12:56 LRN [id number]) Cardio Equipment Treadmill Duration (Minutes) 5 Speed 1.7 Incline 0 Other Cuing was needed for core stability during gait. Therapeutic Exercises Supine Exercises Ilipsoas stretch Supine Exercise Name Chencho test position from side of plinth and end of plinth Side bilateral Reps/Minutes 5' Lateral Hip stretch Supine Exercise Name w/hot-cold/Lateral hip stretch Side right Reps/Minutes 1 minute each Piriformis stretch Supine Exercise Name w/hot-cold/Piriformis stretch w/ankle mvmt, breathing, Side right Reps/Minutes 2x Prone Exercises Up on elbows/thoracic ext Prone Exercise Name IDA with thoracic ext Reps/Minutes 5' Sidelying Exercises Open Book Sidelying Exercise Name Open Book stretch Side bilateral Reps/Minutes 6' Comments Extra time to determine max tolerated stretch Manual Therapy Treatment Soft Tissue Mobilization L QL Body Location L QL Mobilization Type Strumming,Sustained Pressure, Trigger Point Release Intensity/Depth Moderate Body Position Prone Joint Mobilizations Thoracic spine Joint PA Thoracic Spine T3-T6 region Direction PA,correct L Rot Grade III Body Position Prone Reps/Duration 8' Comments Hot-Cold during treatment to lower sacral region. Self-Care/Home Management Treatment Activities Self-Care/Home Management Activities I/S pt to use cryotherapy to the mid back due to loosening and pain post therapy. PT-OP-R Modalities Start: 09/06/22 18:45 Freq: Status: Active Protocol: Document 11/19/22 09:50 LRN (Rec: 11/19/22 10:55 LRN [id number]) Hot Pack/Cold Pack Treatment Cold Pack Location Lumbosacral region Patient Position Hooklying Treatment Duration (minutes) 10 Patient Tolerance Good Comments legs on bolster PT-OP-T Assessment and Plan Start: 09/06/22 18:45 Freq: Status: Active Protocol: Document 02/18/23 11:23 LRN (Rec: 02/18/23 12:56 LRN [id number]) Physical Therapy Assessment Goals Three Impairment Heel pain with gait rated 2-3/ 10. Short Term Goal (STG) Improve hip rotational mobility (IR>ER) with lessening heel pain with gait. 11/08/22: L Heel pain comes/ goes during the day. 12/06/22: L heel pain 0-1/10. Accupuncture helped a lot. 01/18/23: 97% improved with Accupuncture. L heel pain 97 % gone, every now and then feel a twinge at the end of the day. Sometimes there, sometimes not. STG Duration 01/03/23 progression Software Test Automation Engineer Goal (LTG) Pelvic symmetry and stability ex's with no heel pain when walking. 09/18/22: Pelvis symmetrical. Heel pain is in variable locations (inner and outer heel). 12/06/22: Level pelvis but deep on R ASIS. 01/18/23: Pelvis is level. L heel pain 97% gone, every now and then feel a twinge at the end of the day. 02/07/23: Mostly no L heel pain, occasional pain with walking. LTG Duration 02/04/23 partially met goal 02/07/23. Two Impairment Neuropathy of feet Impairment Sensation: Lyubov and wearing a wrinkled sock feeling worse in ball of feet and 1-3 digits of the toes, plantar surface. Short Term Goal (STG) Pt will be educated in proper body mechanics. STG Duration 10/26/22 (09/18/22: MET GOAL) Software Test Automation Engineer Goal (LTG) Normalize sensation in the feet bilaterally. 10/02/22: End of treatment decrease sandyfeeling to toes 1-3 bilaterally. 10/18/22: RLE except toes has reduced lyubov feeling, less tingling. 11/15/22: Feet and thighs more normalization in feeling. 01/31/23: Improvement in feeling of feet noted. 12/06/22: Last wk 80% better, this week 50% better, improvement towards normalization is variable. 01/18/23: Lyubov feeling now a little more intense and in all toes and across the feet but in low amount vs in chicken feet present pattern. 02/07/23: R 90% normal, L is 40% normal. LTG Duration 02/04/23 progressing 02/07/23 One Impairment Lacks appropriate self care HEP. Short Term Goal (STG) Pt will be educated in proper posturing and use of home modalities for pain/sensation management. STG Duration 10/26/22 (09/18/22: MET GOAL) Software Test Automation Engineer Goal (LTG) UPDATED GOAL: Pt goal is to improve tolerance to wearing shoes on his feet all day without having to feel like he needs to immediately remove shoes once home. No sensation, pain in heel - with way to take care. 09/14/22: I/S in TA strengthening. 12/06/22: Pain is annoying and rated constant 3/10. Not really pain, but intensity of electricity/dullness/numbness that goes up into the legs. Some days weak and some numbness sensation. Numbness sensation in legs have gone down. 02/07/23: Able to wear [place] shoes 8 hrs, 2 hrs in regular shoes. 02/14/23: Pt able to wear deck shoes the majority of the day . LTG Duration 03/19/23 progressing 02/07/23 Assessment Summary Assessment Held hip IR HEP stretch due to reports of buttock pain after massage therapy 2 days ago. Good tolerance on TM, except pt had flip-flops on and dislikes treadmills. Pt needed cuing for core stab during TM/core stab training. Tightness in L QL. Pt sore in mid back due to focus on thoracic ext ex's. Physical Therapy Plan Frequency and Duration Frequency of Treatment 2x/Week Plan of Care Start Date 01/18/23 Plan of Care End Date 03/19/23 Next Visit Focus/Plan Next Note Type Treatment Note Next Visit Plan Pt going on vacation for a week and will be assessed for decreasing treatments to 1x/ week on return. Remeasure hip rot ROM (STG #3) Issue HEP of prone hip IR stretch if available and add core stab ex progression. TrP rx for anter justin hip jt and hip AD's. Try: thoracic balancing on R if needed. Thoracic spine Mobs (thoracic spine to Improve T/S ext (L>R in T3-T6 region) & high L/S jt mechanics avoiding L3-L4, L4- S1). Stretch Iliopsoas & Piriformis w/neural glides (?hip IR-DANIS, ?lumbar flex) As needed: Mobilization Correction of posterior shift in the R innominate. Progress Core (abdominal) stabilization for trunk flex. Manual: No STM on days having accupuncture at accupuncturist's request. Hold LE neural glides. Pt to do contrast bath treatment to feet and sparky area of chest.
--- NOTE | 2023-03-04 17:02 | PT.OTN ---
Current Diagnoses Polyneuropathy, unspecified (03/04/23) Radiculopathy, site unspecified (03/04/23) Muscle weakness (generalized) (03/04/23) Abnormal posture (03/04/23) Other reduced mobility (03/04/23) Physical Therapy Treatment Note PT-OP-A Visit Information Start: 09/06/22 18:45 Freq: Status: Active Protocol: Document 03/04/23 11:16 LRN (Rec: 03/04/23 12:22 LRN [id number]) Out-Patient Physical Therapy Visit Information Visit Information Visit Type Treatment Note Visit Note 4 after PN Visit Start Time 11:16 Visit Stop Time 12:00 Total Visit Minutes 44 Visit Number total; in 2022. Evaluation Information Evaluation Date 09/10/22 Precautions Precautions Inguinal Hernia-R front mesh. PT-OP-B Current Condition Start: 09/06/22 18:45 Freq: Status: Active Protocol: Document 09/10/22 13:03 LRN (Rec: 09/10/22 19:20 LRN [id number]) Current Condition History of Current Condition Onset Date Few months ago Current Complaints Justin foot lyubov feeling and feeling of socks on feet. History of Current Condition Few months ago went for a walk wearing his orthotics and hurt his L heel. He took it easy and 3 weeks later he started to get neuropathy, a feeling of sandiness and sock on L foot. Now the neuropathy has started in his R foot. Denies foot pain. States he stands a lot with a wide spread stance. States he feels hot/cold, tickling, feels like bunched sock in toes and the tingling as if feet have fallen asleep, comes and goes with standing. States he has weakness in his legs. Does [employer] bike and yoga daily. 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 Future Testing and Treatments Planned 09/24/22: [facility] appt (Dr Emilia Hinton in ) 09/26/22: Accupuncture appt. Developmental History Developmental History Occasionally has had achilles tendonitis of L heel (pain on heel and outside of heel) and he would ice it. 10 yrs ago he was carrying his daughter, and she tried to throw herself onto the ground, causing him to quickly bend forward to keep from dropping her, since then he has had R thigh sensations (wet) and if he stands for excessive time his R thigh kang. When he worked, 16-18 hr days he had achy feet. Treatment Goals Patient/Caregiver Goals Pt goal is to not have pain, normal again. has 12 and 10 yo and wants to travel. No sensation, pain in heel - with way to take care. No pain with walking. Prior Functional Status Baseline Function- ADL's Independent Baseline Function- Mobility Independent Baseline Function- Work/School Building his deck, odd standing. Baseline Function- Recreation/Hobbies Worked in garden. Current Functional Impairments (Reported) Functional Limitations- ADL's Difficulty hauling his trash can up his driveway because the feet feel like he has been working all day. Functional Limitations- Mobility/Gait Weakness in legs; therefore not confident in gait. Clumsiness. Functional Limitations- Work/School Self employed. Functional Limitations- Recreation/ Does [employer] bike and yoga Hobbies daily. Personal Factors Other Personal Factors That May Effect Pt reports being very active Therapy/Recovery and is wanting to travel with his spouse and children ages 12 & 10. Back injury 10 yrs ago. Flattened arches requiring orthotics in shoes. PT-OP-C Subjective Start: 09/06/22 18:45 Freq: Status: Active Protocol: Document 03/04/23 11:16 LRN (Rec: 03/04/23 12:22 LRN [id number]) OP-PT Subjective Patient Comments Patient Comments Pain at love handles has gone down a lot. States no significant change in sensation in feet coming back from [place]. Did long hike to [place] with [place] shoes. Could not tolerate tennis shoes. PT-OP-G Mobility & Gait Start: 09/06/22 18:45 Freq: Status: Active Protocol: Document 09/10/22 13:03 LRN (Rec: 09/10/22 19:20 LRN [id number]) OP Gait Assessment Gait Gait Assistance Required: Independent Able to Maintain Weight Bearing Status Yes During Gait Assistive Devices Assistive Device None Gait Deviations General Gait Pattern Flexed Trunk,Wide Based Gait Factors Limiting Gait Function Factors Limiting Gait Function Decreased Sensation,Decreased Strength,Pain Comments Gait Comments Pain in heels with heel strike . PT-OP-H Neuro Start: 09/06/22 18:45 Freq: Status: Active Protocol: Document 09/10/22 13:03 LRN (Rec: 09/10/22 19:20 LRN [id number]) Sensation Evaluation Gross Sensation Gross Sensation WNL,Left LE Impaired,Right LE Impaired Sensation Description Tingling,P[place] & [place], Heaviness Comments Summary Comments Pt is able to feel light touch /firm pressure difference, and reports having normal sensation to hot/cold. Deep Tendon Reflex & Clonus Assessment Deep Tendon Reflex Bilateral Achilles Deep Tendon Reflex 2+ Normal PT-OP-J Posture/Palpation/Skin Start: 09/06/22 18:45 Freq: Status: Active Protocol: Document 09/14/22 13:04 LRN (Rec: 09/14/22 16:59 LRN [id number]) Palpation Assessment Location Medial Malleoli in supine Palpation Location Medial malleolus Palpation Details L leg is short/ R leg long. PT-OP-K Range of Motion Start: 09/06/22 18:45 Freq: Status: Active Protocol: Document 03/04/23 11:16 LRN (Rec: 03/04/23 12:22 LRN [id number]) Hip Goniometric Range of Motion Hip Right Passive Testing Position Supine Internal Rotation 20 External Rotation 70 Left Passive Testing Position Supine Internal Rotation 35 External Rotation 80 PT-OP-M Strength Start: 09/06/22 18:45 Freq: Status: Active Protocol: Document 09/18/22 13:03 LRN (Rec: 09/18/22 16:24 LRN [id number]) Trunk Strength Trunk Manual Muscle Testing Core Stabilization Pt has mild loss of core stability with MMT of LE's, especially with testing of R hip flexion (weak L trunk rot) . Hip Strength Hip Manual Muscle Testing Right Comments Generally 5/5 Left Extension (S1) 4 Good Adduction 3 Fair External Rotation 3+ Fair+ Comments Generally 5/5 except as indicated abovel PT-OP-Q Treatments Start: 09/06/22 18:45 Freq: Status: Active Protocol: Document 03/04/23 11:16 LRN (Rec: 03/04/23 12:22 LRN [id number]) Therapeutic Exercises Supine Exercises Ilipsoas stretch Supine Exercise Name Chen[place] test position from side of plinth and end of plinth Side bilateral Reps/Minutes 5' Lateral Hip stretch Supine Exercise Name w/hot-cold/Lateral hip stretch Side right Reps/Minutes 1 minute each Piriformis stretch Supine Exercise Name w/hot-cold/Piriformis stretch w/ankle mvmt, breathing, Side right Reps/Minutes 2x Prone Exercises Hip IR stretch Prone Exercise Name Manual C/R R hip IR Side right Reps/Minutes 5' Other Exercises Hands/Knees T/S ext Other Exercise Name T/S ext Reps/Minutes 2' Comments Cuing need to drop upper back down towards table. Hands/knees Other Exercise Name Hands/knees: Reaching for ceiling. Side bilateral Reps/Minutes 3' Comments Cuing for L arm raise to extend T/S w/rot. Manual Therapy Treatment Soft Tissue Mobilization Hip Internal Rotators Body Location DANIS stretch into R hip IR Intensity/Depth Moderate Body Position Prone Joint Mobilizations Thoracic spine Joint PA Thoracic Spine T2-T8 region Direction PA, rot justin Grade III Body Position Prone Reps/Duration 12' PT-OP-R Modalities Start: 09/06/22 18:45 Freq: Status: Active Protocol: Document 11/19/22 09:50 LRN (Rec: 11/19/22 10:55 LRN [id number]) Hot Pack/Cold Pack Treatment Cold Pack Location Lumbosacral region Patient Position Hooklying Treatment Duration (minutes) 10 Patient Tolerance Good Comments legs on bolster PT-OP-T Assessment and Plan Start: 09/06/22 18:45 Freq: Status: Active Protocol: Document 03/04/23 11:16 LRN (Rec: 03/04/23 12:22 LRN [id number]) Physical Therapy Assessment Goals Three Impairment Heel pain with gait rated 2-3/ 10. Short Term Goal (STG) Improve hip rotational mobility (IR>ER) with lessening heel pain with gait. 11/08/22: L Heel pain comes/ goes during the day. 12/06/22: L heel pain 0-1/10. Accupuncture helped a lot. 01/18/23: 97% improved with Accupuncture. L heel pain 97 % gone, every now and then feel a twinge at the end of the day. Sometimes there, sometimes not. 03/04/23: Improved hip mobility in deg's: ER 70 R, 80 L; IR 20 R, 30 L (was ER 70 justin, IR 10 R, 25 L) STG Duration 01/03/23 (03/04/23: GOAL MET) Bucket Hooker Goal (LTG) Pelvic symmetry and stability ex's with no heel pain when walking. 09/18/22: Pelvis symmetrical. Heel pain is in variable locations (inner and outer heel). 12/06/22: Level pelvis but deep on R ASIS. 01/18/23: Pelvis is level. L heel pain 97% gone, every now and then feel a twinge at the end of the day. 02/07/23: Mostly no L heel pain, occasional pain with walking. LTG Duration 02/04/23 partially met goal 02/07/23. Two Impairment Neuropathy of feet Impairment Sensation: Lyubov and wearing a wrinkled sock feeling worse in ball of feet and 1-3 digits of the toes, plantar surface. Short Term Goal (STG) Pt will be educated in proper body mechanics. STG Duration 10/26/22 (09/18/22: MET GOAL) Bucket Hooker Goal (LTG) Normalize sensation in the feet bilaterally. 10/02/22: End of treatment decrease sandyfeeling to toes 1-3 bilaterally. 10/18/22: RLE except toes has reduced lyubov feeling, less tingling. 11/15/22: Feet and thighs more normalization in feeling. 01/31/23: Improvement in feeling of feet noted. 12/06/22: Last wk 80% better, this week 50% better, improvement towards normalization is variable. 01/18/23: Lyubov feeling now a little more intense and in all toes and across the feet but in low amount vs in chicken feet present pattern. 02/07/23: R 90% normal, L is 40% normal. LTG Duration 02/04/23 progressing 02/07/23 One Impairment Lacks appropriate self care HEP. Short Term Goal (STG) Pt will be educated in proper posturing and use of home modalities for pain/sensation management. STG Duration 10/26/22 (09/18/22: MET GOAL) Alf Goal (LTG) UPDATED GOAL: Pt goal is to improve tolerance to wearing shoes on his feet all day without having to feel like he needs to immediately remove shoes once home. No sensation, pain in heel - with way to take care. 09/14/22: I/S in TA strengthening. 12/06/22: Pain is annoying and rated constant 3/10. Not really pain, but intensity of electricity/dullness/numbness that goes up into the legs. Some days weak and some numbness sensation. Numbness sensation in legs have gone down. 02/07/23: Able to wear [place] shoes 8 hrs, 2 hrs in regular shoes. 02/14/23: Pt able to wear deck shoes the majority of the day . LTG Duration 03/19/23 progressing 02/07/23 Assessment Summary Assessment No significant change in feet pain after vacation to [place], but legs didn't feel weak. Pt was conscientious of proper posture during the trip. [place] got stronger in legs. Not handout available for prone R hip IR stretch, but pt appears to have a good understanding of how to stretch at home after instructions given. Pt appears to have mobilized his T/S after last session to eliminate stiffness with upper back rotation, but has stiffness in his shoulder with L rotation. He has improved T/S PA mobility except at upper T2-T3, T3-T4. Physical Therapy Plan Frequency and Duration Frequency of Treatment 2x/Week Plan of Care Start Date 01/18/23 Plan of Care End Date 03/19/23 Next Visit Focus/Plan Next Note Type Treatment Note Next Visit Plan 2 visits more before possible DC to self care if no improvement. Assess for heel pain with gait (LTG #3). Assess ST of QL and Coccygeus ms, Assess TrP rx for anter justin hip jt and hip AD's (stretch Iliopsoas & R Piriformis w/ neural glides (?hip IR-DANIS, ? lumbar flex). Add core stab ex progression and Upper body strengthening for self care program. Thoracic spine ex/mobs ( thoracic spine to Improve T/S ext T2-T4 region. Progress pt towards self care onto ex program of upper body, core and quad strengthening. As needed: Mobilization Correction of posterior shift in the R innominate. Progress Core (abdominal) stabilization for trunk flex/ posture correction of incr thoracic and lumbar curves. Manual: No STM on days having accupuncture at accupuncturist's request. Hold Sciatic neural glides. Pt to do contrast bath treatment to feet and sparky area of chest.
--- NOTE | 2023-03-11 17:09 | PT.OTN ---
Current Diagnoses Polyneuropathy, unspecified (03/11/23) Radiculopathy, site unspecified (03/11/23) Muscle weakness (generalized) (03/11/23) Abnormal posture (03/11/23) Other reduced mobility (03/11/23) Physical Therapy Treatment Note PT-OP-A Visit Information Start: 09/06/22 18:45 Freq: Status: Active Protocol: Document 03/11/23 09:32 LRN (Rec: 03/11/23 09:42 LRN [id number]) Out-Patient Physical Therapy Visit Information Visit Information Visit Type Treatment Note Visit Start Time 09:32 Visit Stop Time 10:18 Total Visit Minutes 46 Visit Number total; in 2022. Evaluation Information Evaluation Date 09/10/22 Precautions Precautions Inguinal Hernia-R front mesh. PT-OP-B Current Condition Start: 09/06/22 18:45 Freq: Status: Active Protocol: Document 09/10/22 13:03 LRN (Rec: 09/10/22 19:20 LRN [id number]) Current Condition History of Current Condition Onset Date Few months ago Current Complaints Justin foot lyubov feeling and feeling of socks on feet. History of Current Condition Few months ago went for a walk wearing his orthotics and hurt his L heel. He took it easy and 3 weeks later he started to get neuropathy, a feeling of sandiness and sock on L foot. Now the neuropathy has started in his R foot. Denies foot pain. States he stands a lot with a wide spread stance. States he feels hot/cold, tickling, feels like bunched sock in toes and the tingling as if feet have fallen asleep, comes and goes with standing. States he has weakness in his legs. Does [employer] bike and yoga daily. 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 Future Testing and Treatments Planned 09/24/22: Optical Lathe Operator appt (Dr Emilia Hinton in ) 09/26/22: Accupuncture appt. Developmental History Developmental History Occasionally has had achilles tendonitis of L heel (pain on heel and outside of heel) and he would ice it. 10 yrs ago he was carrying his daughter, and she tried to throw herself onto the ground, causing him to quickly bend forward to keep from dropping her, since then he has had R thigh sensations (wet) and if he stands for excessive time his R thigh kang. When he worked, 16-18 hr days he had achy feet. Treatment Goals Patient/Caregiver Goals Pt goal is to not have pain, normal again. has 12 and 10 yo and wants to travel. No sensation, pain in heel - with way to take care. No pain with walking. Prior Functional Status Baseline Function- ADL's Independent Baseline Function- Mobility Independent Baseline Function- Work/School Building his deck, odd standing. Baseline Function- Recreation/Hobbies Worked in garden. Current Functional Impairments (Reported) Functional Limitations- ADL's Difficulty hauling his trash can up his driveway because the feet feel like he has been working all day. Functional Limitations- Mobility/Gait Weakness in legs; therefore not confident in gait. Clumsiness. Functional Limitations- Work/School Self employed. Functional Limitations- Recreation/ Does [employer] bike and yoga Hobbies daily. Personal Factors Other Personal Factors That May Effect Pt reports being very active Therapy/Recovery and is wanting to travel with his spouse and children ages 12 & 10. Back injury 10 yrs ago. Flattened arches requiring orthotics in shoes. PT-OP-C Subjective Start: 09/06/22 18:45 Freq: Status: Active Protocol: Document 03/11/23 09:32 LRN (Rec: 03/11/23 09:42 LRN [id number]) OP-PT Subjective Patient Comments Patient Comments States his feet hurt today, but walked a lot yesterday, probably 2 miles in flip flops . nguyễn isn't going away and doesn't feel much change lately. Thinks he has plateued. Patient Questionnaires Foot & Ankle Ability Measure- ADL and Sports FAAM-ADL Score 64 FAAM-ADL Impairment 20 to 39% Impaired (Score 50- 66) FAAM-Sport Score 15 FAAM-Sport Impairment 40 to 59% Impaired (Score 12- 18) PT-OP-G Mobility & Gait Start: 09/06/22 18:45 Freq: Status: Active Protocol: Document 09/10/22 13:03 LRN (Rec: 09/10/22 19:20 LRN [id number]) OP Gait Assessment Gait Gait Assistance Required: Independent Able to Maintain Weight Bearing Status Yes During Gait Assistive Devices Assistive Device None Gait Deviations General Gait Pattern Flexed Trunk,Wide Based Gait Factors Limiting Gait Function Factors Limiting Gait Function Decreased Sensation,Decreased Strength,Pain Comments Gait Comments Pain in heels with heel strike . PT-OP-H Neuro Start: 09/06/22 18:45 Freq: Status: Active Protocol: Document 09/10/22 13:03 LRN (Rec: 09/10/22 19:20 LRN [id number]) Sensation Evaluation Gross Sensation Gross Sensation WNL,Left LE Impaired,Right LE Impaired Sensation Description Tingling,Pins & [place], Heaviness Comments Summary Comments Pt is able to feel light touch /firm pressure difference, and reports having normal sensation to hot/cold. Deep Tendon Reflex & Clonus Assessment Deep Tendon Reflex Bilateral Achilles Deep Tendon Reflex 2+ Normal PT-OP-J Posture/Palpation/Skin Start: 09/06/22 18:45 Freq: Status: Active Protocol: Document 09/14/22 13:04 LRN (Rec: 09/14/22 16:59 LRN [id number]) Palpation Assessment Location Medial Malleoli in supine Palpation Location Medial malleolus Palpation Details L leg is short/ R leg long. PT-OP-K Range of Motion Start: 09/06/22 18:45 Freq: Status: Active Protocol: Document 03/04/23 11:16 LRN (Rec: 03/04/23 12:22 LRN [id number]) Hip Goniometric Range of Motion Hip Right Passive Testing Position Supine Internal Rotation 20 External Rotation 70 Left Passive Testing Position Supine Internal Rotation 35 External Rotation 80 PT-OP-M Strength Start: 09/06/22 18:45 Freq: Status: Active Protocol: Document 09/18/22 13:03 LRN (Rec: 09/18/22 16:24 LRN [id number]) Trunk Strength Trunk Manual Muscle Testing Core Stabilization Pt has mild loss of core stability with MMT of LE's, especially with testing of R hip flexion (weak L trunk rot) . Hip Strength Hip Manual Muscle Testing Right Comments Generally 5/5 Left Extension (S1) 4 Good Adduction 3 Fair External Rotation 3+ Fair+ Comments Generally 5/5 except as indicated abovel PT-OP-Q Treatments Start: 09/06/22 18:45 Freq: Status: Active Protocol: Document 03/11/23 09:32 LRN (Rec: 03/11/23 09:42 LRN [id number]) Therapeutic Exercises Supine Exercises T/S ext w/roller Supine Exercise Name T/S ext rolling on soft roller Reps/Minutes 12' Comments Extra time taken for positioning for ex and correct location of ex stretch Ilipsoas stretch Supine Exercise Name Chencho test position from side of plinth and end of plinth Side bilateral Reps/Minutes 5' Lateral Hip stretch Supine Exercise Name Lateral hip stretch Side bilateral Reps/Minutes 1.5 minute each Piriformis stretch Supine Exercise Name Piriformis stretch w/ankle mvmt, breathing, Side bilateral Reps/Minutes 2x Prone Exercises Up on elbows/thoracic ext Prone Exercise Name IDA with thoracic ext Reps/Minutes 3' Other Exercises Hands/Knees T/S ext Other Exercise Name Cat/Cow for T/S ext only. Reps/Minutes 6' Comments Cuing need to drop upper back down towards table. Hands/knees Other Exercise Name Hands/knees: Reaching for ceiling. Side bilateral Reps/Minutes 6' Comments Cuing for L arm raise to extend T/S w/rot. Self-Care/Home Management Treatment Education Patient Education Home Exercise Program Other Education Discussed and reviewed self care DLS program with I/S in hands/knees ex for focus on core stab specifically and not for movement of limbs or rocking forward/backward. Activities Self-Care/Home Management Activities Issued & reviewed HEP: Progressive DLS ex's in supine and hands/knees. PT-OP-R Modalities Start: 09/06/22 18:45 Freq: Status: Active Protocol: Document 11/19/22 09:50 LRN (Rec: 11/19/22 10:55 N [id number]) Hot Pack/Cold Pack Treatment Cold Pack Location Lumbosacral region Patient Position Hooklying Treatment Duration (minutes) 10 Patient Tolerance Good Comments legs on bolster PT-OP-T Assessment and Plan Start: 09/06/22 18:45 Freq: Status: Active Protocol: Document 03/11/23 09:32 LRN (Rec: 03/11/23 09:42 N [id number]) Physical Therapy Assessment Goals Three Impairment Heel pain with gait rated 2-3/ 10. Short Term Goal (STG) Improve hip rotational mobility (IR>ER) with lessening heel pain with gait. 11/08/22: L Heel pain comes/ goes during the day. 12/06/22: L heel pain 0-1/10. Accupuncture helped a lot. 01/18/23: 97% improved with Accupuncture. L heel pain 97 % gone, every now and then feel a twinge at the end of the day. Sometimes there, sometimes not. 03/04/23: Improved hip mobility in deg's: ER 70 R, 80 L; IR 20 R, 30 L (was ER 70 justin, IR 10 R, 25 L) STG Duration 01/03/23 (03/04/23: GOAL MET) Correction Goal (LTG) Pelvic symmetry and stability ex's with no heel pain when walking. 09/18/22: Pelvis symmetrical. Heel pain is in variable locations (inner and outer heel). 12/06/22: Level pelvis but deep on R ASIS. 01/18/23: Pelvis is level. L heel pain 97% gone, every now and then feel a twinge at the end of the day. 02/07/23: Mostly no L heel pain, occasional pain with walking. 03/11/23: No heel pain with walking. LTG Duration 02/04/23 (03/11/23: MET GOAL ) Two Impairment Neuropathy of feet Impairment Sensation: Lyubov and wearing a wrinkled sock feeling worse in ball of feet and 1-3 digits of the toes, plantar surface. Short Term Goal (STG) Pt will be educated in proper body mechanics. STG Duration 10/26/22 (09/18/22: MET GOAL) Correction Goal (LTG) Normalize sensation in the feet bilaterally. 10/02/22: End of treatment decrease sandyfeeling to toes 1-3 bilaterally. 10/18/22: RLE except toes has reduced lyubov feeling, less tingling. 11/15/22: Feet and thighs more normalization in feeling. 01/31/23: Improvement in feeling of feet noted. 12/06/22: Last wk 80% better, this week 50% better, improvement towards normalization is variable. 01/18/23: Lyubov feeling now a little more intense and in all toes and across the feet but in low amount vs in chicken feet present pattern. 02/07/23: R 90% normal, L is 40% normal. 03/11/23: 70% normal in both feet. LTG Duration 02/04/23 (03/11/23: progressed, NOT MET GOAL) One Impairment Lacks appropriate self care HEP. Short Term Goal (STG) Pt will be educated in proper posturing and use of home modalities for pain/sensation management. STG Duration 10/26/22 (09/18/22: MET GOAL) Correction Goal (LTG) UPDATED GOAL: Pt goal is to improve tolerance to wearing shoes on his feet all day without having to feel like he needs to immediately remove shoes once home. No sensation, pain in heel - with way to take care. 09/14/22: I/S in TA strengthening. 12/06/22: Pain is annoying and rated constant 3/10. Not really pain, but intensity of electricity/dullness/numbness that goes up into the legs. Some days weak and some numbness sensation. Numbness sensation in legs have gone down. 02/07/23: Able to wear [place] shoes 8 hrs, 2 hrs in regular shoes. 02/14/23: Pt able to wear deck shoes the majority of the day . 03/11/23: Improved tolerance to wearing shoes. Hulen and wide shoe able to wear 6 hrs. Boat shoes can tolerate for > hrs on soles of feet. Worst shoe is [employer], wears < 2hrs. LTG Duration 03/19/23 (03/11/23: NOT MET GOAL) Assessment Summary Assessment Pt has met most of his goals, except for tolerance for wearing shoes. Per FAAM score his function is the same for ADLs and worse for Sport score . He does report improved tolerance to wearing shoes and lessening of feet pain. He can at most wear one particular pair of shoes for 6 hrs before becoming very uncomfortable. He reports his feet as 70% normal sensation in both feet; therefore neurological symptoms persist. The pt has been educated in a self care HEP to continue on working on trunk and hip mobility and proper posturing, and he has been educated in use of modalities to try and minimize the neuropathy in his feet with hot/cold treatments . The pt is being discharged due to his being independent with a self care program and plateauing in progress. Physical Therapy Plan Frequency and Duration Frequency of Treatment 2x/Week Plan of Care Start Date 01/18/23 Plan of Care End Date 03/19/23 Discharge Physical Therapy Discharge Reasons Plateau in Progress Discharge Comments Thank you for your referral. I would be happy to work with this pleasant individual again .
== END 2023-03-12 12:26 | disposition home or self-care (01) ==
LOC: PHYS 09:30
PROVIDERS: Family Provider Internal Medicine; PCP Internal Medicine; Referring Provider Internal Medicine; Visit Provider Internal Medicine
DX: G62.9 Polyneuropathy, unspecified (principal); M54.10 Radiculopathy, site unspecified; M62.81 Muscle weakness (generalized); R29.3 Abnormal posture; Z74.09 Other reduced mobility
CPT/HCPCS: 97014; 97110; 97140; 97162; 97535; G0283

== ENCOUNTER → 2023-08-22 08:12 | Outpatient (CLI) | payer BC, SELFPAY ==
--- NOTE | 2023-08-22 | DI.MRI.S_ITS ---
PROCEDURE: MR THORACIC SPINE WO CON INDICATIONS: Disease of spinal cord, unspecified TECHNIQUE: Noncontrast sagittal T1 spine echo and T2 fast spin echo, sagittal STIR, and T2 fast spin echo through the thoracic spine. COMPARISON: [facility], MR, MR LUMBAR SPINE WO CON, 10/31/2022, 9:03. [facility], MR, MR CERVICAL SPINE WO CON, 08/22/2023, 8:42. FINDINGS: Image quality: Diagnostic, with note made of motion artifact. Alignment and Curvature: Accentuated thoracic kyphosis is seen. No focal AP alignment abnormality is seen. Bone Marrow: Marrow is of normal overall signal. No acute vertebral body compression fractures. Several levels of mild midthoracic anterior wedge deformity can be seen. Spinal Cord: Visualized spinal cord is normal in size and signal. Paraspinous Soft Tissues: No paravertebral masses. Incidental note is made of a retroaortic left renal vein. Miscellaneous: At T4-T5, the disc height is relatively well preserved. Mild disc bulge is seen, with mild central canal narrowing. Mild bilateral neural foraminal narrowing is seen. At T5-T6, there is [id number] disc space narrowing, with loss of disc signal. Posterior to the T5 vertebral body, there is a disc extrusion seen, as on series 5, image 23 and on series 12 image 7, which is likely related to a sequestered fragment. There is moderate central canal narrowing seen, with associated moderate mass effect upon the ventral spinal cord. No neural foraminal narrowing is seen. At T6-T7, there is mild loss of disc height. There is a central/right disc protrusion, with moderate central canal narrowing and moderate mass effect upon the ventral spinal cord, as on series 15, image 28. Mild bilateral neural foraminal narrowing is seen. At T7-T8, there is a mild central canal narrowing, with minimal central canal narrowing and minimal mass effect upon the ventral spinal cord. Mild bilateral neural foraminal narrowing is seen. At T8-T9, there is a central disc bulge, with moderate central canal narrowing and moderate mass effect upon the ventral spinal cord. Moderate bilateral neural foraminal narrowing is seen. At T9-T10, there is moderate loss of disc height and disc signal. Moderate disc bulge is seen, with mild to moderate central canal narrowing and mild mass effect upon the ventral spinal cord. At least moderate bilateral neural foraminal narrowing can be seen. At T10-T11, there is [id number] loss of disc height. There is a central disc bulge seen, with moderate to severe central canal narrowing and mass effect upon the ventral spinal cord. Mild to moderate facet hypertrophy is seen at this level. Moderate to severe bilateral neural foraminal narrowing can be seen. At T11-T12, the disc height is relatively well preserved. Mild disc bulge is seen. Moderate bilateral neural foraminal narrowing is seen. At T12-L1, mild loss of disc height is seen. Mild to moderate disc bulge is seen, with a central disc protrusion. At least moderate bilateral neural foraminal narrowing can be seen. Mild to moderate central canal narrowing is seen. IMPRESSION: Multiple levels of significant thoracic spine degenerative change can be seen, which are overall worst at the T10-T11 level. Several levels of chronic anterior wedge deformity can be seen within the mid thoracic spine, with associated accentuated thoracic kyphosis. Additional findings: Retroaortic left renal vein Dictated by: Abiel Garcia M.D. on 08/22/2023 at 10:42 Approved by: Abiel Garcia M.D. on 08/22/2023 at 10:49
--- NOTE | 2023-08-22 | DI.MRI.S_ITS ---
PROCEDURE: MR CERVICAL SPINE WO CON INDICATIONS: Disease of spinal cord, unspecified TECHNIQUE: Noncontrast sagittal T1 spin echo and T2 fast spin echo, sagittal STIR, foraminal oblique sagittal T2 fast spin echo, and axial gradient echo or T2 fast spin echo through the cervical spine. COMPARISON: [facility], MR, MR THORACIC SPINE WO CON, 08/22/2023, 8:42. [facility], CR, XR CERVICAL SPINE 2V OR 3V, 08/29/2022, 12:43. FINDINGS: Image quality: This examination is limited by involuntary motion artifact. Alignment and Curvature: There is overall straightening of the normal cervical lordosis. Minimal retrolisthesis can be seen at C5-C6. Bone Marrow: Marrow demonstrates normal overall signal. Spinal Cord: Visualized spinal cord has normal size and signal. No cerebellar tonsillar herniation. Paraspinous Soft Tissues: No paravertebral masses. Prevertebral soft tissues are normal in thickness. C2-C3: The disc height and disk signal are well-preserved. Mild to moderate disc osteophyte complex is seen, with a right subarticular/foraminal disc osteophyte protrusion, as on series 5, image 15. Mild to moderate facet hypertrophy is seen. There is moderate to severe right-sided and at least moderate left-sided neural foraminal narrowing. Mild central canal narrowing is seen. C3-C4: The disc height and disk signal are relatively well-preserved. Mild to moderate disc osteophyte complex is seen, which is eccentric to the right, with a right foraminal disc osteophyte protrusion, as on series 5, image 20. [id number] facet hypertrophy is seen. There is moderate to severe right-sided and moderate left-sided neural foraminal narrowing. Mild to moderate central canal narrowing is seen, with minimal mass effect upon the ventral spinal cord. C4-C5: Moderate loss of disc height is seen. Loss of disc signal is seen. Moderate generalized disc osteophyte complex is seen. There is a central disc osteophyte protrusion seen. Moderate bilateral neural foraminal narrowing is seen. There is moderate to severe bilateral neural foraminal narrowing seen, left worse than right. Moderate central canal narrowing is seen. There is associated mass effect upon the ventral spinal cord. C5-C6: Moderate loss of disc height is seen. Loss of disc signal is seen. Disc at least moderate disc osteophyte complex is seen. There is a central/right disc osteophyte protrusion. Uncovertebral joint hypertrophy is seen at this level. Moderate facet joint hypertrophy is seen. There is moderate to severe bilateral neural foraminal narrowing seen. Moderate to severe central canal narrowing is seen, with associated ventral cord flattening. C6-C7: Moderate loss of disc height is seen. Loss of disc signal is seen. Moderate disc osteophyte complex is seen, which is eccentric to the right. There is a right foraminal disc osteophyte protrusion, as on series 5, image 34. Moderate facet joint hypertrophy is seen. There is moderate to severe bilateral neural foraminal narrowing seen. At least moderate central canal narrowing is seen, with associated ventral cord flattening. C7-T1: The disc height and disk signal are relatively well-preserved. A mild degree of generalized disc osteophyte complex is seen. Moderate facet joint hypertrophy is seen. At least moderate bilateral neural foraminal narrowing can be seen. No central canal narrowing is seen. IMPRESSION: Multiple levels of significant cervical spine degenerative change can be seen, which are overall worst at the C5-C6 level. Dictated by: Abiel Garcia M.D. on 08/22/2023 at 10:49 Approved by: Abiel Garcia M.D. on 08/22/2023 at 10:54
== END ==
PROVIDERS: Family Provider Internal Medicine; PCP Internal Medicine; Referring Provider Orthopaedic Surgery Orthopaedic Surgery of the Spine; Visit Provider Orthopaedic Surgery Orthopaedic Surgery of the Spine
DX: M47.812 Spondylosis without myelopathy or radiculopathy, cervical region (principal); M47.814 Spondylosis without myelopathy or radiculopathy, thoracic region; M43.8X4 Other specified deforming dorsopathies, thoracic region; G95.9 Disease of spinal cord, unspecified
CPT/HCPCS: 72141; 72146

== ENCOUNTER → 2023-09-18 10:55 | Outpatient (ROUT) | payer BC, SELFPAY ==
[2023-09-18 11:10] LABS: Prothrombin Time 11.3 SECONDS (9.4-12.5)
[2023-09-18 11:13] LABS: PTT Partial Thromboplastin Tim 30 SECONDS (25.1-36.5)
== END ==
PROVIDERS: Family Provider Internal Medicine; PCP Internal Medicine; Visit Provider Registered Nurse
DX: Z01.818 Encounter for other preprocedural examination (principal)
CPT/HCPCS: 85610; 85730

== ENCOUNTER → 2025-09-04 13:17 | Outpatient (CLI) | payer BC, SELFPAY | PROVIDERS: Family Provider Internal Medicine; PCP Internal Medicine; Visit Provider Registered Nurse | DX: J02.9 Acute pharyngitis, unspecified (principal) | CPT/HCPCS: 87070 ==